=== PATIENT | male | born 1935 | race Caucasian/White ===

== ENCOUNTER 2020-09-10 09:40 | Emergency (ER) | payer OTHER ==
[2020-09-10 12:06] LABS: Absolute Lymphocytes (CBC) 1.3 K/uL (0.7-4.9); Basophils % 0.4 % (0-1.3); Hematocrit 37.2 % (39.6-49.0); Lymphocytes % 11.5 % (15.3-44.8); MPV 9.6 fL (7.6-11.3); RBC Red Blood Cell Count 4.68 M/uL (4.33-5.43)
[2020-09-10 12:09] LABS: Protime INR 1.22
[2020-09-10 12:15] LABS: ALT/SGPT 31 U/L (12-78); AST/SGOT 25 U/L (15-37); Albumin 3.9 g/dL (3.4-5.0); Alkaline Phosphatase 177 U/L (45-117); BUN Blood Urea Nitrogen 12 mg/dL (7-18); Bicarbonate 26 mmol/L (21-32); Bilirubin Direct 0.2 mg/dL (0-0.2); Bilirubin Total 0.6 mg/dL (0.2-1.0); Glucose Level 78 mg/dL (74-106); Magnesium 2.1 mg/dL (1.8-2.4); NT PRO-BNP 1852 pg/mL (<450); Potassium 4.6 mmol/L (3.5-5.1); Protein, Total 8.1 g/dL (6.4-8.2); Sodium Level 142 mmol/L (136-145); Troponin (Emerg Dept Use Only) < 0.02 ng/mL (0.0-0.045)
--- NOTE | 2020-09-10 12:58 | RAD REPORT ---
EXAM DESCRIPTION: RAD - Chest Single View - 09/10/2020 12:44 pm CLINICAL HISTORY: SOB, dyspnea on exertion, recent COVID test with results on known COMPARISON: Single-view chest March 2012 TECHNIQUE: AP portable chest image was obtained 09/10/2020 12:44 pm . FINDINGS: No focal mass or consolidation. Patient has a baseline prominence of the interstitial benito chava in each lung base that could potentially mask an early interstitial edema or infiltrate. Heart an d vasculature are normal. No measurable pleural effusion and no pneumothorax. No acute bony abnormali ty seen. No acute aortic findings suspected. IMPRESSION: No mass, consolidation or definitive airspace pneumonia. Baseline interstitial pattern is not significantly different from comparison but could mask early int erstitial edema or infiltrate.
--- NOTE | 2020-09-10 13:52 | RAD REPORT ---
EXAM DESCRIPTION: CT - Chest For Pe Angio - 09/10/2020 1:32 pm CLINICAL HISTORY: SOB , recent COVID vaccination COMPARISON: Chest Single View dated 09/10/2020 TECHNIQUE: Dynamically enhanced 3 mm thick images of the chest were obtained during administration o f approximately 150mL Isovue 370 IV contrast. Coronal and oblique MIP reconstruction images were gene rated and reviewed. Exam utilizes a protocol to evaluate the pulmonary arterial tree. All CT scans are performed using dose optimization technique as appropriate and may include automated exposure control or mA/KV adjustment according to patient size. FINDINGS: No pulmonary emboli are identified. The aorta as imaged shows no acute or suspicious finding. No pericardial thickening or effusion. Card iomegaly is present. No focal consolidation or mass. Interstitial markings are prominent, accentuated by respiratory motio n. Findings are more pronounced in each lung base. Small bilateral pleural effusions are present left greater than right. No mediastinal or hilar suspicious masses. No chest wall masses or abnormal axillary lymphadenopathy. IMPRESSION: No pulmonary emboli identified. Small bilateral pleural effusions are present larger on the left. Cardiomegaly and prominent interstitial pattern. Patient could have a mild failure or volume overload .A mild interstitial infiltrate could be masked by the baseline prominence.
[2020-09-10] MEDS ORDERED: FUROSEMIDE 40 MG/4 ML VIAL ONE (14:34)
--- NOTE | 2020-09-10 15:09 | ER ---
Nurse's Notes [facility] Name: Miles Chowdary Age: 84 yrs Sex: Male : 1935 Arrival Date: 09/10/2020 Time: 09:41 Bed 5 Private MD: Ge Cuevas T Diagnosis: Heart failure, unspecified Presentation: 09/10 10:03 Chief complaint: Patient states: "I went and got that first COVID shot last week and ss after that I just can't breath. I can't walk across the floor without getting out of breath." Denies fever/ cough. Coronavirus screen: Client denies travel out of the [place] in the last 14 days. Ebola Screen: Patient denies exposure to infectious person. Patient denies travel to an Ebola-affected area in the 21 days before illness onset. Initial Sepsis Screen: Does the patient meet any 2 criteria? No. Patient's initial sepsis screen is negative. Does the patient have a suspected source of infection? No. Patient's initial sepsis screen is negative. Risk Assessment: Do you want to hurt yourself or someone else? Patient reports no desire to harm self or others. Onset of symptoms was September 03, 2020. 10:03 Method Of Arrival: Ambulatory ss 10:03 Acuity: MILDRED 3 ss Historical: - Allergies: 10:06 No Known Allergies; ss - PMHx: 10:06 Hypertension; "Male breast CA"; ss - PSHx: 10:06 [place]; ss - Immunization history:: Adult Immunizations up to date. - Social history:: Smoking status: Patient denies any tobacco usage or history of. Screenin:35 Abuse screen: Denies threats or abuse. Denies injuries from another. Nutritional sv screening: No deficits noted. Tuberculosis screening: No symptoms or risk factors identified. Fall Risk None identified. Assessment: 11:35 General: Appears in no apparent distress. uncomfortable, well groomed, well developed, sv Behavior is calm, cooperative, appropriate for age. Pain: Denies pain. Neuro: Level of Consciousness is awake, alert, obeys commands, Oriented to person, place, time, situation, Moves all extremities. Full function Gait is steady, Speech is normal. Cardiovascular: Patient's skin is warm and dry. Cardiovascular: Rhythm is atrial fibrillation. Respiratory: Airway is patent Respiratory effort is even, unlabored, Respiratory pattern is regular, symmetrical. Respiratory: Reports shortness of breath on exertion. Derm: Skin is pink, warm \\T\\ dry. Musculoskeletal: Range of motion: intact in all extremities, Swelling present in right leg and left leg. 13:08 Reassessment: Patient appears in no apparent distress at this time. Patient and/or hb family updated on plan of care and expected duration. Pain level reassessed. Patient is alert, oriented x 3, equal unlabored respirations, skin warm/dry/pink. 14:00 Reassessment: Patient appears in no apparent distress at this time. Patient and/or hb family updated on plan of care and expected duration. Pain level reassessed. Patient is alert, oriented x 3, equal unlabored respirations, skin warm/dry/pink. 15:21 Reassessment: Patient appears in no apparent distress at this time. Patient and/or sv family updated on plan of care and expected duration. Pain level reassessed. Patient is alert, oriented x 3, equal unlabored respirations, skin warm/dry/pink. Vital Signs: 10:03 Pulse 78; Resp 16; Temp 97.9(TE); Pulse Ox 99% on R/A; Weight 90.72 kg; Height 5 ft. 8 ss in. (172.72 cm); Pain 0/10; 10:06 BP 176 / 121; ss 12:07 BP 174 / 100; Pulse 83 MON; Resp 18; Pulse Ox 95% on R/A; sv 13:00 BP 179 / 93; Pulse 94; Resp 21; Pulse Ox 97% ; hb 14:06 BP 179 / 108; Pulse 94; Resp 17; Pulse Ox 97% on R/A; hb 10:03 Body Mass Index 30.41 (90.72 kg, 172.72 cm) ss 12:07 A fib sv ED Course: 09:41 Patient arrived in ED. am2 09:42 Ge Cuevas MD is Private Physician. am2 10:05 Triage completed. ss 10:06 Arm band placed on right wrist. ss 11:02 Lauren Manriquez RN is Primary Nurse. sv 11:08 Ryan Guaman MD is Attending Physician. sohail 11:10 Kyler Barahona PA is PHCP. jmm 11:35 Patient has correct armband on for positive identification. Placed in gown. Bed in low sv position. Call light in reach. Side rails up X 1. campus monitor on. Pulse ox on. NIBP on. Door closed. Warm blanket given. Head of bed elevated. 11:37 Inserted saline lock: 20 gauge in right antecubital area, using aseptic technique. sv Blood collected. Flushed right antecubital with 5 ml normal saline. 12:44 XRAY Chest (1 view) In Process Unspecified. EDMS 13:32 CT Chest For PE Angio In Process Unspecified. EDMS 15:08 Jaime Matt MD is Referral Physician. jmm 15:21 No provider procedures requiring assistance completed. IV discontinued, intact, sv bleeding controlled, No redness/swelling at site. Pressure dressing applied. Administered Medications: 14:20 Drug: Lasix (furosemide) 40 mg Route: IVP; Site: right antecubital; hb 14:59 Follow up: Response: No adverse reaction sv Output: 15:00 Urine: 700ml (Voided); Total: 700ml. sv Outcome: 15:08 Discharge ordered by MD. jmm 15:21 Discharged to home ambulatory. sv 15:21 Condition: stable 15:21 Discharge instructions given to patient, Instructed on discharge instructions, follow up and referral plans. medication usage, Demonstrated understanding of instructions, follow-up care, medications, Prescriptions given X 1. 15:23 Patient left the ED. sv Signatures: Dispatcher [employer] EDNJ Lauren Manriquez RN RN sv Anderson, Corey, MD MD cha Mickail, Joel, PA PA jmm Smirch, Shelby, RN RN ss Baxter, Heather, RN RN hb Moreno, Amanda am2
--- NOTE | 2020-09-10 15:09 | EDPHYS ---
Physician Documentation [facility] Name: Miles Chowdary Age: 84 yrs Sex: Male : 1935 Arrival Date: 09/10/2020 Time: 09:41 Bed 5 Private MD: Ge Cuevas T ED Physician Ryan Guaman HPI: 09/10 11:08 This 84 yrs old Male presents to ER via Ambulatory with complaints of jmm Shortness Of Breath. 11:08 The patient has shortness of breath with light activity. Onset: The symptoms/episode jmm began/occurred gradually, 1 week(s) ago. The patient's shortness of breath is aggravated by exertion, light activity, is alleviated by nothing. Associated signs and symptoms: Pertinent positives: leg swelling, Pertinent negatives: chest pain, non-productive cough, productive cough, fever, hemoptysis, loss of consciousness, nausea, numbness in extremities, visual changes, vomiting. This is an 84 year old male with a history of htn that presents to the ED with complaints of shortness of breath on exertion. Patient states he recently was discontinued from furosemide about 1 month ago. . Historical: - Allergies: 10:06 No Known Allergies; ss - PMHx: 10:06 Hypertension; "Male breast CA"; ss - PSHx: 10:06 whipple; ss - Immunization history:: Adult Immunizations up to date. - Social history:: Smoking status: Patient denies any tobacco usage or history of. ROS: 11:08 Constitutional: Negative for fever, chills, and weight loss, Cardiovascular: Negative jmm for chest pain, palpitations, and edema. 11:08 Respiratory: Positive for shortness of breath. 11:08 MS/extremity: Positive for swelling. 11:08 All other systems are negative. Exam: 11:08 Constitutional: This is a well developed, well nourished patient who is awake, alert, jmm and in no acute distress. Head/Face: atraumatic. Eyes: EOMI, no conjunctival erythema appreciated ENT: Moist Mucus Membranes Neck: Trachea midline, Supple Chest/axilla: Normal chest wall appearance and motion. Cardiovascular: Regular rate and rhythm. No edema appreciated Respiratory: Normal respirations, no respiratory distress appreciated Abdomen/GI: Non distended, soft Back: Normal ROM Skin: General appearance color normal 11:08 Musculoskeletal/extremity: edema noted bilaterally. 11:08 Skin: Appearance: Color: normal in color. 11:08 Neuro: Orientation: is normal, Mentation: is normal, Memory: is normal. 11:08 Psych: Behavior/mood is pleasant, cooperative. Vital Signs: 10:03 Pulse 78; Resp 16; Temp 97.9(TE); Pulse Ox 99% on R/A; Weight 90.72 kg; Height 5 ft. 8 ss in. (172.72 cm); Pain 0/10; 10:06 BP 176 / 121; ss 12:07 BP 174 / 100; Pulse 83 MON; Resp 18; Pulse Ox 95% on R/A; sv 13:00 BP 179 / 93; Pulse 94; Resp 21; Pulse Ox 97% ; hb 14:06 BP 179 / 108; Pulse 94; Resp 17; Pulse Ox 97% on R/A; hb 10:03 Body Mass Index 30.41 (90.72 kg, 172.72 cm) ss 12:07 A fib sv MDM: 11:08 Patient medically screened. sohail 15:06 Data reviewed: vital signs, nurses notes. Counseling: I had a detailed discussion with juliet the patient and/or guardian regarding: the historical points, exam findings, and any diagnostic results supporting the discharge/admit diagnosis, lab results, radiology results, the need for outpatient follow up, to return to the emergency department if symptoms worsen or persist or if there are any questions or concerns that arise at home. ED course: Patient states feeling much better. SOB most likely due to overload. Otherwise normal pulse ox along with RR. Patient administered lasix IV and advised to follow up with Dr. Matt for medication management. patient is otherwise given strict return precautions. Patient understood and agrees with the plan of care. . 09/10 11:10 Order name: Basic Metabolic Panel; Complete Time: 12:16 [facility] 09/10 11:10 Order name: CBC with Diff; Complete Time: 12:14 [facility] 09/10 11:10 Order name: LFT's; Complete Time: 12:16 [facility] 09/10 11:10 Order name: Magnesium; Complete Time: 12:16 [facility] 09/10 11:10 Order name: NT PRO-BNP; Complete Time: 12:16 [facility] 09/10 11:10 Order name: PT-INR; Complete Time: 12:42 [facility] 09/10 11:10 Order name: Troponin (emerg Dept Use Only); Complete Time: 12:16 [facility] 09/10 11:10 Order name: XRAY Chest (1 view); Complete Time: 13:03 [facility] 09/10 11:10 Order name: EKG; Complete Time: 11:11 [facility] 09/10 11:10 Order name: Cardiac monitoring; Complete Time: 12:05 [facility] 09/10 13:13 Order name: CT Chest For PE Angio; Complete Time: 13:55 [facility] 09/10 14:04 Order name: SARS-COV-2 RT PCR; Complete Time: 14:05 [facility] 09/10 11:10 Order name: EKG - Nurse/Tech; Complete Time: 12:05 [facility] 09/10 11:10 Order name: IV Saline Lock; Complete Time: 12:05 [facility] 09/10 11:10 Order name: Labs collected and sent; Complete Time: 12:06 [facility] 09/10 11:10 Order name: O2 Per Protocol; Complete Time: 12:06 [facility] 09/10 11:10 Order name: O2 Sat Monitoring; Complete Time: 12:06 [facility] Administered Medications: 14:20 Drug: Lasix (furosemide) 40 mg Route: IVP; Site: right antecubital; hb 14:59 Follow up: Response: No adverse reaction sv Disposition: 09/11 07:16 Co-signature as Attending Physician, Ryan Guaman MD I agree with the assessment and sohail plan of care. Disposition: 09/10/20 15:08 Discharged to Home. Impression: Heart failure, unspecified. - Condition is Stable. - Discharge Instructions: Heart Failure. - Prescriptions for Lasix 40 mg Oral Tablet - take 1 tablet by ORAL route once daily for 30 days; 30 tablet. - Medication Reconciliation Form, Thank You Letter, Antibiotic Education, Prescription Opioid Use form. - Follow up: Jaime Matt MD; When: 2 - 3 days; Reason: Recheck today's complaints, Continuance of care, Re-evaluation by your physician. Signatures: Dispatcher [employer] Lauren Kumar RN RN sv Anderson, Corey, MD MD cha Mickail, Joel, PA PA jmm Smirch, Shelby, RN RN Zenaida Sales RN RN Corrections: (The following items were deleted from the chart) 09/10 13:21 12:19 CORONAVIRUS+MR.LAB.BRZ ordered. [facility] EDMS 15:23 15:08 09/10/2020 15:08 Discharged to Home. Impression: Heart failure, unspecified. sv Condition is Stable. Forms are Medication Reconciliation Form, Thank You Letter, Antibiotic Education, Prescription Opioid Use. Follow up: Jaime Matt; When: 2 - 3 days; Reason: Recheck today's complaints, Continuance of care, Re-evaluation by your physician. juliet
[2020-09-10 17:17] VITALS: TEMP 97.9
[2020-09-10 17:20] VITALS: O2SAT 97
[2020-09-10 17:21] VITALS: BP 179/108
--- NOTE | 2020-09-11 06:53 | EKG ---
Test Date: 2020-09-10 Test Time: 11:25:40 Lean Engineer: SV MEASUREMENT RESULTS: Intervals: Rate: 102 ND: QRSD: 92 QT: 328 QTc: 427 [place]: P: ND: QRS: 87 T: 41 INTERPRETIVE STATEMENTS: Atrial fibrillation with rapid ventricular response Abnormal ECG Compared to ECG 03/29/2012 14:23:11 Myocardial infarct finding no longer present Electronically Signed On 09-11-20 06:51:34 CDT by Jaime Matt
[2020-09-17 12:23] LABS: Urine Blood Negative (Negative); Urine Glucose Negative (Negative); Urine Protein Negative (Negative); Urine Specific Gravity 1.025 (1.005-1.030); Urine pH 6.5 (5.0-7.0)
== END 2020-09-10 15:23 | disposition home or self-care (01) ==
LOC: ER 09:40
DX: I50.9 Heart failure, unspecified (principal); Z20.822 Contact with and (suspected) exposure to COVID-19; I10 Essential (primary) hypertension
CPT/HCPCS: 85025; 80048; 36415; 83735; 85610; 80076; 84484; 83880; 71275; 71045; U0003; Q9967; J1940; 81003; 93005; 96374; 99284

== ENCOUNTER 2020-09-13 13:22 | Emergency (ER) | payer OTHER ==
[2020-09-13] MEDS ORDERED: HYDROCODONE/APAP 5/325 MG TAB ONE (14:19)
--- NOTE | 2020-09-13 14:22 | RAD REPORT ---
EXAM DESCRIPTION: RAD - Wrist Right 3 View - 09/13/2020 1:57 pm CLINICAL HISTORY: Right wrist pain status post injury FINDINGS: Comminuted, impacted distal radial fracture is moderately displaced. Avulsion fracture ulnar styloid. No dislocation
[2020-09-13] MEDS ORDERED: LIDOCAINE 1% MPF 5 ML VIAL ONE (14:33)
[2020-09-13] MEDS ORDERED: FENTANYL CITR 100 MCG/2 ML ONE (14:34)
[2020-09-13] MEDS ORDERED: ONDANSETRON 4 MG (ODT) TAB ONE (14:35)
--- NOTE | 2020-09-13 15:26 | RAD REPORT ---
EXAM DESCRIPTION: RAD - Wrist Right 2 View - 09/13/2020 3:19 pm CLINICAL HISTORY: Radial fracture FINDINGS: Splint immobilizes previously described fractures distal radius and ulna. Moderate displac ement of the radial fracture fragments present
--- NOTE | 2020-09-13 16:47 | ER ---
Nurse's Notes [facility] Name: Miles Chowdary Age: 84 yrs Sex: Male : 1935 Arrival Date: 09/13/2020 Time: 13:23 Bed 7 Private MD: Ge Cuevas T Diagnosis: Displaced fracture of right ulna styloid process-closed;Closed comminuted impacted distal radius fracture with moderate displacement Presentation: 09/13 13:33 Chief complaint: Patient states: "I fell and caught myself with my arm and I think I aa5 broke my right wrist". 13:33 Onset of symptoms was September 13, 2020. aa5 13:33 Acuity: MILDRED 3 aa5 13:33 Method Of Arrival: Ambulatory aa5 13:40 Coronavirus screen: At this time, the client does not indicate any symptoms associated rb3 with coronavirus-19. Ebola Screen: Patient denies travel to an Ebola-affected area in the 21 days before illness onset. Initial Sepsis Screen: Does the patient meet any 2 criteria? No. Patient's initial sepsis screen is negative. Does the patient have a suspected source of infection? No. Patient's initial sepsis screen is negative. Risk Assessment: Do you want to hurt yourself or someone else? Patient reports no desire to harm self or others. Triage Assessment: 13:40 Injury Description: Deformity sustained to right wrist. rb3 Historical: - Allergies: 13:40 No Known Allergies; rb3 - Home Meds: 13:40 Unable to obtain [Active]; rb3 - PMHx: 13:40 "Male breast CA"; Hypertension; pancreatic cancer; skin cancer; rb3 - PSHx: 13:40 whipple; rb3 - Immunization history:: Adult Immunizations up to date. - Social history:: Smoking status: Patient/guardian denies using. Screenin:40 Abuse screen: Denies threats or abuse. Nutritional screening: No deficits noted. rb3 Tuberculosis screening: No symptoms or risk factors identified. Fall Risk Fall in past 12 months (25 points). No secondary diagnosis (0 pts). No IV (0 pts). Ambulatory Aid- None/Bed Rest/Nurse Assist (0 pts). Gait- Normal/Bed Rest/Wheelchair (0 pts) Mental Status- Oriented to own ability (0 pts). Total Hanna Fall Scale indicates Low Risk Score (25-44 pts). Fall prevention measures have been instituted. Side Rails Up X 2 Placed close to Nursing Station 1:1 attendant Assigned to Pt. Frequent Obs/Assesments occuring As available Patient and Family Educated on Fall Prevention Program and strategies. Assessment: 13:40 General: Appears in no apparent distress. Behavior is calm, cooperative. Pain: rb3 Complains of pain in right wrist Pain currently is 8 out of 10 on a pain scale. Pain began 30 min ago. Neuro: Level of Consciousness is awake, alert, obeys commands, Oriented to person, place, time, situation. Cardiovascular: Patient's skin is warm and dry. Pulses are palpable in right wrist. Respiratory: Airway is patent Respiratory effort is even, unlabored, Respiratory pattern is regular, symmetrical. GI: No signs and/or symptoms were reported involving the gastrointestinal system. : No signs and/or symptoms were reported regarding the genitourinary system. Musculoskeletal: Bony deformity noted of right wrist Reports He stepped in a hole, fell, and tried to catch himself injuring his right wrist. 14:30 Reassessment: Patient appears in no apparent distress at this time. Patient and/or rb3 family updated on plan of care and expected duration. Pain level reassessed. Patient is alert, oriented x 3, equal unlabored respirations, skin warm/dry/pink. 15:12 Reassessment: X-ray at the bedside. rb3 15:30 Reassessment: Patient appears in no apparent distress at this time. Patient and/or rb3 family updated on plan of care and expected duration. Pain level reassessed. Patient is alert, oriented x 3, equal unlabored respirations, skin warm/dry/pink. 16:30 Reassessment: Patient appears in no apparent distress at this time. [place] at the rb3 bedside applying a splint. 17:15 Reassessment: Patient appears in no apparent distress at this time. Patient and/or rb3 family updated on plan of care and expected duration. Pain level reassessed. Patient is alert, oriented x 3, equal unlabored respirations, skin warm/dry/pink. Vital Signs: 13:59 BP 153 / 92; Pulse 76; Resp 17; Temp 97.6(O); Pulse Ox 100% ; Weight 90.26 kg; Height 5 mh5 ft. 10 in. (177.80 cm); Pain 8/10; 15:00 BP 155 / 89; Pulse 79; Resp 18; Pulse Ox 100% ; Pain 6/10; rb3 16:00 BP 149 / 83; Pulse 75; Resp 17; Pulse Ox 99% ; rb3 17:00 BP 151 / 80; Pulse 77; Resp 17; Pulse Ox 98% ; Pain 4/10; rb3 13:59 Body Mass Index 28.55 (90.26 kg, 177.80 cm) 5 ED Course: 13:23 Patient arrived in ED. am2 13:23 Ge Cuevas MD is Private Physician. am2 13:33 Arm band placed on Patient placed in an exam room, on a stretcher. aa5 13:35 Joe Duckworth NP is PHCP. pm1 13:[address] MD is Attending Physician. pm1 13:41 Marty Farrell, FARTUN is Primary Nurse. bp 13:46 Triage completed. aa5 13:57 Wrist Right 3 View XRAY In Process Unspecified. EDMS 13:58 ICE PACK. mh5 13:59 Patient has correct armband on for positive identification. Bed in low position. Call [facility] light in reach. Pillow given. Ice pack to injury. Pulse ox on. NIBP on. 14:02 Orthoglass splint: Sugar tong splint applied on right arm. Sling applied to right arm. mh5 14:59 MANIPULATING OF WRIST AND SPLINT SUGAR TONG. mh5 15:19 Wrist Right 2 View XRAY In Process Unspecified. EDMS 16:18 Wrist Right 2 View XRAY In Process Unspecified. EDMS 16:47 Stepan Heath MD is Referral Physician. pm1 17:22 Patient did not have IV access during this emergency room visit. rb3 Administered Medications: 14:03 Drug: [place] (HYDROcodone-acetaminophen) 5 mg-325 mg 1 tabs Route: PO; rb3 14:30 Follow up: Response: No adverse reaction rb3 14:24 Drug: fentaNYL (PF) 25 mcg Route: IM; Site: right deltoid; rb3 15:00 Follow up: Response: No adverse reaction; Pain is decreased rb3 14:24 Drug: Ondansetron (Zofran) 4 mg Route: PO; rb3 15:00 Follow up: Response: No adverse reaction rb3 14:40 Drug: Lidocaine (1 %) 5 ml Volume: 5 ml; Route: Infiltration; rb3 Outcome: 16:47 Discharge ordered by . pm1 17:22 Patient left the ED. rb3 17:22 Discharged to home via wheelchair, with family. rb3 17:22 Condition: stable 17:22 Discharge instructions given to patient, Instructed on discharge instructions, follow rb3 up and referral plans. medication usage, Demonstrated understanding of instructions, follow-up care, medications, Prescriptions given X 1. Signatures: Dispatcher [employer] EDTX Rossy Lakhani RN RN aa5 Joe Duckworth NP [facility] pm1 Norma Casarez 5 Monalisa Sharma am2 Marty Farrell RN RN bp Amy Davis RN RN rb3
--- NOTE | 2020-09-13 16:47 | EDPHYS ---
Physician Documentation [facility] Name: Miles Chowdary Age: 84 yrs Sex: Male : 1935 Arrival Date: 09/13/2020 Time: 13:23 Bed 7 Private MD: Ge Cuevas T ED Physician Stephon Lane HPI: 09/13 13:51 This 84 yrs old Male presents to ER via Ambulatory with complaints of Arm pm1 Injury, Fall Injury. 13:51 The patient or guardian complains of deformity, pain, that is acute. The complaints pm1 affect the right wrist. Context: resulted from a fall, while walking. Onset: The symptoms/episode began/occurred just prior to arrival. Treatment prior to arrival includes: no previous treatment. Modifying factors: The symptoms are alleviated by remaining still. 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 - Social history:: Smoking status: Patient/guardian denies using. ROS: 13:52 Constitutional: Negative for fever, chills, and weight loss, Neck: Negative for injury, pm1 pain, and swelling, Cardiovascular: Negative for chest pain, palpitations, and edema, Respiratory: Negative for shortness of breath, cough, wheezing, and pleuritic chest pain, Abdomen/GI: Negative for abdominal pain, nausea, vomiting, diarrhea, and constipation, Back: Negative for injury and pain, Skin: Negative for injury, rash, and discoloration. 13:52 Neuro: Negative for headache, weakness, numbness, tingling, and seizure. 13:52 MS/extremity: Positive for pain, of the right wrist, Negative for paresthesias, tingling. Exam: 13:52 Constitutional: This is a well developed, well nourished patient who is awake, alert, pm1 and in no acute distress. Head/Face: Normocephalic, atraumatic. Neck: Trachea midline, no thyromegaly or masses palpated, and no cervical lymphadenopathy. Supple, full range of motion without nuchal rigidity, or vertebral point tenderness. No Meningismus. Chest/axilla: Normal chest wall appearance and motion. Nontender with no deformity. No lesions are appreciated. 13:52 Back: No spinal tenderness. No costovertebral tenderness. Full range of motion. Skin: Warm, dry with normal turgor. Normal color with no rashes, no lesions, and no evidence of cellulitis. 13:52 Cardiovascular: Exam negative for acute changes, Rate: normal, Rhythm: regular, Pulses: no pulse deficits are appreciated. 13:52 Respiratory: Exam negative for acute changes, respiratory distress, shortness of breath. 13:52 Musculoskeletal/extremity: Extremities: grossly normal except: noted in the right wrist: distal radial deformity present, There is no evidence of abrasion, laceration, puncture. 13:52 Neuro: Orientation: is normal, Mentation: is normal, Motor: neurovascular status intact to right hand. Patient able to move all finger full range of motion. No numbness present, Sensation: is normal, no obvious gross deficits, numbness, is not appreciated, of the right hand. Vital Signs: 13:59 BP 153 / 92; Pulse 76; Resp 17; Temp 97.6(O); Pulse Ox 100% ; Weight 90.26 kg; Height 5 mh5 ft. 10 in. (177.80 cm); Pain 8/10; 15:00 BP 155 / 89; Pulse 79; Resp 18; Pulse Ox 100% ; Pain 6/10; rb3 16:00 BP 149 / 83; Pulse 75; Resp 17; Pulse Ox 99% ; rb3 17:00 BP 151 / 80; Pulse 77; Resp 17; Pulse Ox 98% ; Pain 4/10; rb3 13:59 Body Mass Index 28.55 (90.26 kg, 177.80 cm) mh5 Procedures: 14:52 Reduction: of the right wrist, using traction, Immobilized with OCL splint, Patient pm1 tolerated well. Reduction performed with Dr. Patton. 15:36 Reduction: of the right wrist, using traction, Immobilized with OCL splint, Patient pm1 tolerated well. Patient prior reduction with continued moderate displacement, so further reduction attempted again. Patient neurovascular status intact to right hand and fingers. 16:42 Splinting: Splint applied to right wrist using Orthoglass splint, applied by myself. pm1 nurse. Examined by me, post splint application: neurovascular intact, 2+ distal pulses palpable, brisk capillary refill noted, Patient tolerated cock up 45 degree angle on right wrist with orthoglass. MDM: 13:39 Patient medically screened. pm1 14:29 Data reviewed: vital signs. Data interpreted: Pulse oximetry: on room air is 100 %. pm1 Interpretation: normal. 16:43 Counseling: I had a detailed discussion with the patient and/or guardian regarding: the pm1 historical points, exam findings, and any diagnostic results supporting the discharge/admit diagnosis, radiology results, the need for outpatient follow up, for definitive care, a orthopedic surgeon, to return to the emergency department if symptoms worsen or persist or if there are any questions or concerns that arise at home. 19:36 ED course: Reviewed X-ray with Dr. Patton for second post reduction. Patient's right pm1 arm neurovascular status intact. Dr. Patton believes that this is the maximum amount we will be able to reduce this comminuted and displaced distal radius fracture. Patient will need follow up with orthopedics for definitive care. 09/13 13:42 Order name: Wrist Right 3 View XRAY; Complete Time: 14:25 pm1 09/13 14:51 Order name: Wrist Right 2 View XRAY; Complete Time: 15:35 dh4 09/13 15:36 Order name: Wrist Right 2 View XRAY; Complete Time: 19:29 pm1 09/13 13:42 Order name: Ice pack; Complete Time: 13:57 pm1 09/13 13:58 Order name: Splint - Sugar Tong - Forearm; Complete Time: 14:01 pm1 09/13 13:58 Order name: Sling; Complete Time: 14:02 pm1 Administered Medications: 14:03 Drug: [place] (HYDROcodone-acetaminophen) 5 mg-325 mg 1 tabs Route: PO; rb3 14:30 Follow up: Response: No adverse reaction rb3 14:24 Drug: fentaNYL (PF) 25 mcg Route: IM; Site: right deltoid; rb3 15:00 Follow up: Response: No adverse reaction; Pain is decreased rb3 14:24 Drug: Ondansetron (Zofran) 4 mg Route: PO; rb3 15:00 Follow up: Response: No adverse reaction rb3 14:40 Drug: Lidocaine (1 %) 5 ml Volume: 5 ml; Route: Infiltration; rb3 Disposition: 09/13/20 16:47 Discharged to Home. Impression: Displaced fracture of right ulna styloid process - closed, Closed comminuted impacted distal radius fracture with moderate displacement. - Condition is Stable. - Discharge Instructions: Wrist Fracture Treated With Immobilization, How to Use a Sling. - Prescriptions for Tramadol 50 mg Oral Tablet - take 1 tablet by ORAL route every 8 hours as needed; 12 tablet. - Medication Reconciliation Form, Thank You Letter, Antibiotic Education, Prescription Opioid Use form. - Follow up: Stepan Heath MD; When: 2 - 3 days; Reason: Recheck today's complaints, Continuance of care, Re-evaluation by your physician. - Problem is new. - Symptoms have improved. Addendum: 09/14/2020 18:43 Co-signature as Attending Physician, Stephon Lane MD. m a2 Signatures: Dispatcher [employer] EDMS Joe Duckworth, [employer] pm1 [address] MD MD ma2 Amy Davis, RN RN rb3 Corrections: (The following items were deleted from the chart) 09/13 17:22 16:47 09/13/2020 16:47 Discharged to Home. Impression: Displaced fracture of right ulna rb3 styloid process - closed; Closed comminuted impacted distal radius fracture with moderate displacement. Condition is Stable. Forms are Medication Reconciliation Form, Thank You Letter, Antibiotic Education, Prescription Opioid Use. Follow up: Dr. Stepan Heath; When: 2 - 3 days; Reason: Recheck today's complaints, Continuance of care, Re-evaluation by your physician. Problem is new. Symptoms have improved. pm1
--- NOTE | 2020-09-13 17:17 | RAD REPORT ---
EXAM DESCRIPTION: RAD - Wrist Right 2 View - 09/13/2020 4:18 pm CLINICAL HISTORY: Radial fracture FINDINGS: There is better alignment of the radial fracture fragments when compared to the prior exam . However, mild to moderate displacement of fracture fragments persist.
== END 2020-09-13 17:22 | disposition home or self-care (01) ==
LOC: ER 13:22
PROC: 0PSHXZZ Reposition Right Radius, External Approach (ICD-10-PCS; principal; 2020-09-13)
PROC: 0PSKXZZ Reposition Right Ulna, External Approach (ICD-10-PCS; 2020-09-13)
DX: S52.501A Unspecified fracture of the lower end of right radius, initial encounter for closed fracture (principal); S52.611A Displaced fracture of right ulna styloid process, initial encounter for closed fracture; W19.XXXA Unspecified fall, initial encounter; Z85.3 Personal history of malignant neoplasm of breast; Z85.07 Personal history of malignant neoplasm of pancreas; Z85.828 Personal history of other malignant neoplasm of skin; I10 Essential (primary) hypertension
CPT/HCPCS: 73110; 73100 ×2; 25605; J3010; 96372; 99284

== ENCOUNTER 2021-08-19 12:29 | Observation (INO) | payer OTHER ==
--- OUTSIDE RECORDS SUMMARY | 2021-08-19 12:34 | XMS REPORT | Continuity of Care Document ---
:1935 Author Organization [facility] t Address [address] [place] [address] Care Team Providers Name Role Phone Demetri Rust MD Attending Clinician Demetri RUST Attending Clinician Unavailable Doctor Unassigned, Name Attending Clinician Unavailable [place], Lab Main Attending Clinician Unavailable Krystal GARCIA S Attending Clinician Tracy RICE Attending Clinician Unavailable Payers Payer Name Policy Type Policy Number Effective Date Expiration Date S azeem [employer] MEDICARE ADV [id number] 2020 00:00:00 Problems Condition Condition Condition Status Onset Resolution Last Treating Co mments Source Name Details Category Date Date Treatment Clinician Date No known No known Disease Unive rs active active ity of problems problems [facility] Allergies, Adverse Reactions, Alerts Allergy Allergy Status Severity Reaction(s) Onset Inactive Treating Comm ents Source Name Type Date Date Clinician NO KNOWN Drug Active Univers ALLERGIE Class ity of S [facility] Social History Social Habit Start Date Stop Date Quantity Comments Source Exposure to Not sure [facility] SARS-CoV-2 [facility] (event) [place] Tobacco use and 2020-10-27 2020-10-27 Never used Universit y of exposure 00:00:00 00:00:00 [facility] Alcohol intake 2020-10-27 2020-10-27 Lifetime University of 00:00:00 00:00:00 non-drinker [facility] (finding) [place] Sex Ass[birth year] At [birth year] Universit y of 00:00:00 00:00:00 [facility] Smoking Status Start Date Stop Date Source Never smoker [facility] Medications Ordered Filled Start Stop Current Ordering Indication Dosage Frequency Signature Comments Components Source Medication Medication Date Date Medication? Clinician (SIG) Name Name traMADoL 50 Yes TAKE ONE [facility] [place] mg tablet -03 (1) ity of 00:00: TABLET(S) [place] 00 BY MOUTH Medical EVERY Branch EIGHT HOURS NEEDED. traMADoL 50 Yes TAKE ONE [place] mg tablet 4-03 (1) ity of 00:00: TABLET(S) [place] 00 BY MOUTH Medical EVERY Branch EIGHT HOURS NEEDED. traMADoL 50 Yes TAKE ONE [place] mg tablet 4-03 (1) ity of 00:00: TABLET(S) [place] 00 BY MOUTH Medical EVERY Branch EIGHT HOURS NEEDED. traMADoL 50 Yes TAKE ONE [place] mg tablet 4-03 (1) ity of 00:00: TABLET(S) [place] 00 BY MOUTH Medical EVERY Branch EIGHT HOURS NEEDED. traMADoL 50 Yes TAKE ONE [place] mg tablet 4-03 (1) ity of 00:00: TABLET(S) [place] 00 BY MOUTH Medical EVERY Branch EIGHT HOURS NEEDED. traMADoL 50 Yes TAKE ONE [place] mg tablet 4-03 (1) ity of 00:00: TABLET(S) [place] 00 BY MOUTH Medical EVERY Branch EIGHT HOURS NEEDED. traMADoL 50 Yes TAKE ONE [place] mg tablet 4-03 (1) ity of 00:00: TABLET(S) [place] 00 BY MOUTH Medical EVERY Branch EIGHT HOURS NEEDED. traMADoL 50 Yes TAKE ONE [place] mg tablet 4-03 (1) ity of 00:00: TABLET(S) [place] 00 BY MOUTH Medical EVERY Branch EIGHT HOURS NEEDED. traMADoL 50 Yes TAKE ONE [place] mg tablet 4-03 (1) ity of 00:00: TABLET(S) [place] 00 BY MOUTH Medical EVERY Branch EIGHT HOURS NEEDED. traMADoL 50 Yes TAKE ONE [place] mg tablet 4-03 (1) ity of 00:00: TABLET(S) [place] 00 BY MOUTH Medical EVERY Branch EIGHT HOURS NEEDED. traMADoL 50 Yes TAKE ONE [place] mg tablet 4-03 (1) ity of 00:00: TABLET(S) [place] 00 BY MOUTH Medical EVERY Branch EIGHT HOURS NEEDED. traMADoL 50 Yes TAKE ONE [place] mg tablet 4-03 (1) ity of 00:00: TABLET(S) [place] 00 BY MOUTH Medical EVERY Branch EIGHT HOURS NEEDED. traMADoL 50 2020-0 Yes TAKE ONE [place] mg tablet 4-03 (1) ity of 00:00: TABLET(S) [place] 00 BY MOUTH Medical EVERY Branch EIGHT HOURS NEEDED. traMADoL 50 2020-0 Yes TAKE ONE [place] mg tablet 4-03 (1) ity of 00:00: TABLET(S) [place] 00 BY MOUTH Medical EVERY Branch EIGHT HOURS NEEDED. traMADoL 50 2020-0 Yes TAKE ONE [place] mg tablet 4-03 (1) ity of 00:00: TABLET(S) [place] 00 BY MOUTH Medical EVERY Branch EIGHT HOURS NEEDED. traMADoL 50 2020-0 Yes TAKE ONE [facility] [place] mg tablet 4-03 (1) ity of 00:00: TABLET(S) [place] 00 BY MOUTH Medical EVERY Branch EIGHT HOURS NEEDED. furosemide 2020-0 Yes 40mg Take 40 mg U nivers 40 mg 3-31 by mouth ity of tablet 00:00: daily. [address] furosemide 2021-0 Yes 40mg Take 40 mg U nivers 40 mg 3-31 by mouth ity of tablet 00:00: daily. [address] furosemide 2021-0 Yes 40mg Take 40 mg U nivers 40 mg 3-31 by mouth ity of tablet 00:00: daily. [place] [facility] furosemide 2021-0 Yes 40mg Take 40 mg U nivers 40 mg 3-31 by mouth ity of tablet 00:00: daily. [address] furosemide 2021-0 Yes 40mg Take 40 mg U nivers 40 mg 3-31 by mouth ity of tablet 00:00: daily. [place] [facility] furosemide 2021-0 Yes 40mg Take 40 mg U nivers 40 mg 3-31 by mouth ity of tablet 00:00: daily. [address] furosemide 2021-0 Yes 40mg Take 40 mg U nivers 40 mg 3-31 by mouth ity of tablet 00:00: daily. [address] furosemide 2021-0 Yes 40mg Take 40 mg U nivers 40 mg 3-31 by mouth ity of tablet 00:00: daily. [address] furosemide 2021-0 Yes 40mg Take 40 mg U nivers 40 mg 3-31 by mouth ity of tablet 00:00: daily. [address] furosemide 2021-0 Yes 40mg Take 40 mg U nivers 40 mg 3-31 by mouth ity of tablet 00:00: daily. [place] [facility] furosemide 0 Yes 40mg Take 40 mg U nivers 40 mg 3-31 by mouth ity of tablet 00:00: daily. [place] [facility] furosemide 0 Yes 40mg Take 40 mg U nivers 40 mg 3-31 by mouth ity of tablet 00:00: daily. [place] [facility] furosemide 0 Yes 40mg Take 40 mg U nivers 40 mg 3-31 by mouth ity of tablet 00:00: daily. [address] furosemide Yes 40mg Take 40 mg U nivers 40 mg 3-31 by mouth ity of tablet 00:00: daily. [address] furosemide Yes 40mg Take 40 mg U nivers 40 mg 3-31 by mouth ity of tablet 00:00: daily. [address] furosemide Yes 40mg Take 40 mg U nivers 40 mg 3-31 by mouth ity of tablet 00:00: daily. [address] XARELTO 20 Yes TAKE ONE Uni vers mg tablet 3-16 (1) ity of 00:00: TABLET(S) [place] 00 BY MOUTH Medical ONCE A DAY Branch WITH EVENING MEAL. XARELTO 20 Yes TAKE ONE Uni vers mg tablet 3-16 (1) ity of 00:00: TABLET(S) [place] 00 BY MOUTH Medical ONCE A DAY Branch WITH EVENING MEAL. XARELTO 20 Yes TAKE ONE Uni vers mg tablet 3-16 (1) ity of 00:00: TABLET(S) [place] 00 BY MOUTH Medical ONCE A DAY Branch WITH EVENING MEAL. XARELTO 20 Yes TAKE ONE Uni vers mg tablet 3-16 (1) ity of 00:00: TABLET(S) [place] 00 BY MOUTH Medical ONCE A DAY Branch WITH EVENING MEAL. XARELTO 20 Yes TAKE ONE Uni vers mg tablet 3-16 (1) ity of 00:00: TABLET(S) [place] 00 BY MOUTH Medical ONCE A DAY Branch WITH EVENING MEAL. XARELTO 20 Yes TAKE ONE Uni vers mg tablet 3-16 (1) ity of 00:00: TABLET(S) [place] 00 BY MOUTH Medical ONCE A DAY Branch WITH EVENING MEAL. XARELTO 20 Yes TAKE ONE Uni vers mg tablet 3-16 (1) ity of 00:00: TABLET(S) [place] 00 BY MOUTH Medical ONCE A DAY Branch WITH EVENING MEAL. XARELTO 20 Yes TAKE ONE Uni vers mg tablet 3-16 (1) ity of 00:00: TABLET(S) [place] 00 BY MOUTH Medical ONCE A DAY Branch WITH EVENING MEAL. XARELTO 20 Yes TAKE ONE Uni vers mg tablet 3-16 (1) ity of 00:00: TABLET(S) [place] 00 BY MOUTH Medical ONCE A DAY Branch WITH EVENING MEAL. XARELTO 20 Yes TAKE ONE Uni vers mg tablet 3-16 (1) ity of 00:00: TABLET(S) [place] 00 BY MOUTH Medical ONCE A DAY Branch WITH EVENING MEAL. XARELTO 20 Yes TAKE ONE Uni vers mg tablet 3-16 (1) ity of 00:00: TABLET(S) [place] 00 BY MOUTH Medical ONCE A DAY Branch WITH EVENING MEAL. XARELTO 20 Yes TAKE ONE Uni vers mg tablet 3-16 (1) ity of 00:00: TABLET(S) [place] 00 BY MOUTH Medical ONCE A DAY Branch WITH EVENING MEAL. XARELTO 20 Yes TAKE ONE Uni vers mg tablet 3-16 (1) ity of 00:00: TABLET(S) [place] 00 BY MOUTH Medical ONCE A DAY Branch WITH EVENING MEAL. XARELTO 20 Yes TAKE ONE Uni vers mg tablet 3-16 (1) ity of 00:00: TABLET(S) [place] 00 BY MOUTH Medical ONCE A DAY Branch WITH EVENING MEAL. XARELTO 20 Yes TAKE ONE Uni vers mg tablet 3-16 (1) ity of 00:00: TABLET(S) [place] 00 BY MOUTH Medical ONCE A DAY Branch WITH EVENING MEAL. XARELTO 20 Yes TAKE ONE Uni vers mg tablet 3-16 (1) ity of 00:00: TABLET(S) [place] 00 BY MOUTH Medical ONCE A DAY Branch WITH EVENING MEAL. TRESIBA Yes INJECT Univers FLEXTOUCH 2-25 THIRTY ity of U-200 200 00:00: (30) UNITS [place] unit/mL (3 00 UNDER THE Medi derek mL) InPn SKIN ONCE Branch DAILY IN THE EVENING. metFORMIN 2021-0 Yes 1000mg Take 1,000 Univers 1,000 mg 2-25 mg by ity of tablet 00:00: mouth 2 (two) Medical times Branch daily. TRESIBA 2020-0 Yes INJECT Univers FLEXTOUCH 2-25 THIRTY ity of U-200 200 00:00: (30) UNITS [place] unit/mL (3 00 UNDER THE Medi derek mL) InPn SKIN ONCE Branch DAILY IN THE EVENING. metFORMIN 2021-0 Yes 1000mg Take 1,000 Univers 1,000 mg 2-25 mg by ity of tablet 00:00: mouth 2 (two) Medical times Branch daily. TRESIBA 2020-0 Yes INJECT Univers FLEXTOUCH 2-25 THIRTY ity of U-200 200 00:00: (30) UNITS [place] unit/mL (3 00 UNDER THE Medi derek mL) InPn SKIN ONCE Branch DAILY IN THE EVENING. metFORMIN 2021-0 Yes 1000mg Take 1,000 Univers 1,000 mg 2-25 mg by ity of tablet 00:00: mouth 2 (two) Medical times Branch daily. TRESIBA 2020-0 Yes INJECT Univers FLEXTOUCH 2-25 THIRTY ity of U-200 200 00:00: (30) UNITS [place] unit/mL (3 00 UNDER THE Medi derek mL) InPn SKIN ONCE Branch DAILY IN THE EVENING. metFORMIN 2021-0 Yes 1000mg Take 1,000 Univers 1,000 mg 2-25 mg by ity of tablet 00:00: mouth 2 (two) Medical times Branch daily. TRESIBA 2020-0 Yes INJECT Univers FLEXTOUCH 2-25 THIRTY ity of U-200 200 00:00: (30) UNITS [place] unit/mL (3 00 UNDER THE Medi derek mL) InPn SKIN ONCE Branch DAILY IN THE EVENING. metFORMIN 2021-0 Yes 1000mg Take 1,000 Univers 1,000 mg 2-25 mg by ity of tablet 00:00: mouth 2 (two) Medical times Branch daily. TRESIBA 2021-0 Yes INJECT Univers FLEXTOUCH 2-25 THIRTY ity of U-200 200 00:00: (30) UNITS [place] unit/mL (3 00 UNDER THE Medi derek mL) InPn SKIN ONCE Branch DAILY IN THE EVENING. metFORMIN 2021-0 Yes 1000mg Take 1,000 Univers 1,000 mg 2-25 mg by ity of tablet 00:00: mouth 2 (two) Medical times Branch daily. TRESIBA 202-0 Yes INJECT Univers FLEXTOUCH 2-25 THIRTY ity of U-200 200 00:00: (30) UNITS [place] unit/mL (3 00 UNDER THE Medi derek mL) InPn SKIN ONCE Branch DAILY IN THE EVENING. metFORMIN 2021-0 Yes 1000mg Take 1,000 Univers 1,000 mg 2-25 mg by ity of tablet 00:00: mouth 2 (two) Medical times Branch daily. TRESIBA 2020-0 Yes INJECT Univers FLEXTOUCH 2-25 THIRTY ity of U-200 200 00:00: (30) UNITS [place] unit/mL (3 00 UNDER THE Medi derek mL) InPn SKIN ONCE Branch DAILY IN THE EVENING. metFORMIN 2021-0 Yes 1000mg Take 1,000 Univers 1,000 mg 2-25 mg by ity of tablet 00:00: mouth 2 (two) Medical times Branch daily. TRESIBA 2020-0 Yes INJECT Univers FLEXTOUCH 2-25 THIRTY ity of U-200 200 00:00: (30) UNITS [place] unit/mL (3 00 UNDER THE Medi derek mL) InPn SKIN ONCE Branch DAILY IN THE EVENING. metFORMIN 2021-0 Yes 1000mg Take 1,000 Univers 1,000 mg 2-25 mg by ity of tablet 00:00: mouth 2 (two) Medical times Branch daily. TRESIBA 2020-0 Yes INJECT Univers FLEXTOUCH 2-25 THIRTY ity of U-200 200 00:00: (30) UNITS [place] unit/mL (3 00 UNDER THE Medi derek mL) InPn SKIN ONCE Branch DAILY IN THE EVENING. metFORMIN 2021-0 Yes 1000mg Take 1,000 Univers 1,000 mg 2-25 mg by ity of tablet 00:00: mouth 2 (two) Medical times Branch daily. TRESIBA 202-0 Yes INJECT Univers FLEXTOUCH 2-25 THIRTY ity of U-200 200 00:00: (30) UNITS [place] unit/mL (3 00 UNDER THE Medi derek mL) InPn SKIN ONCE Branch DAILY IN THE EVENING. metFORMIN 2021-0 Yes 1000mg Take 1,000 Univers 1,000 mg 2-25 mg by ity of tablet 00:00: mouth 2 (two) Medical times Branch daily. TRESIBA 202-0 Yes INJECT Univers FLEXTOUCH 2-25 THIRTY ity of U-200 200 00:00: (30) UNITS [place] unit/mL (3 00 UNDER THE Medi derek mL) InPn SKIN ONCE Branch DAILY IN THE EVENING. metFORMIN 2021-0 Yes 1000mg Take 1,000 Univers 1,000 mg 2-25 mg by ity of tablet 00:00: mouth 2 (two) Medical times Branch daily. TRESIBA 2020-0 Yes INJECT Univers FLEXTOUCH 2-25 THIRTY ity of U-200 200 00:00: (30) UNITS [place] unit/mL (3 00 UNDER THE Medi derek mL) InPn SKIN ONCE Branch DAILY IN THE EVENING. metFORMIN 2021-0 Yes 1000mg Take 1,000 Univers 1,000 mg 2-25 mg by ity of tablet 00:00: mouth (two) Medical times Branch daily. TRESIBA 2020-0 Yes INJECT Univers FLEXTOUCH 2-25 THIRTY ity of U-200 200 00:00: (30) UNITS [place] unit/mL (3 00 UNDER THE Medi derek mL) InPn SKIN ONCE Branch DAILY IN THE EVENING. metFORMIN 2021-0 Yes 1000mg Take 1,000 Univers 1,000 mg 2-25 mg by ity of tablet 00:00: mouth 2 (two) Medical times Branch daily. TRESIBA 2020-0 Yes INJECT Univers FLEXTOUCH 2-25 THIRTY ity of U-200 200 00:00: (30) UNITS [place] unit/mL (3 00 UNDER THE Medi derek mL) InPn SKIN ONCE Branch DAILY IN THE EVENING. metFORMIN 2021-0 Yes 1000mg Take 1,000 Univers 1,000 mg 2-25 mg by ity of tablet 00:00: mouth 2 (two) Medical times Branch daily. TRESIBA 2021-0 Yes INJECT Univers FLEXTOUCH 2-25 THIRTY ity of U-200 200 00:00: (30) UNITS [place] unit/mL (3 00 UNDER THE Medi derek mL) InPn SKIN ONCE Branch DAILY IN THE EVENING. metFORMIN 2021-0 Yes 1000mg Take 1,000 Univers 1,000 mg 2-25 mg by ity of tablet 00:00: mouth 2 [place] 00 (two) Medical times Branch daily. glimepiride 2021-0 Yes 4mg Take 4 mg U nivers 4 mg tablet 2-24 by mouth 2 it y of 00:00: (two) [place] 00 times Medical daily. Branch sotaloL 80 2021-0 Yes 80mg Take 80 mg U nivers mg tablet 2-24 by mouth 3 ity of 00:00: (three) [place] 00 times Medical daily. Branch glimepiride 2021-0 Yes 4mg Take 4 mg U nivers 4 mg tablet 2-24 by mouth 2 it y of 00:00: (two) [place] 00 times Medical daily. Branch sotaloL 80 2021-0 Yes 80mg Take 80 mg U nivers mg tablet 2-24 by mouth 3 ity of 00:00: (three) [place] 00 times Medical daily. Branch glimepiride 2021-0 Yes 4mg Take 4 mg U nivers 4 mg tablet 2-24 by mouth 2 it y of 00:00: (two) [place] 00 times Medical daily. Branch sotaloL 80 2021-0 Yes 80mg Take 80 mg U nivers mg tablet 2-24 by mouth 3 ity of 00:00: (three) [place] 00 times Medical daily. Branch glimepiride 2021-0 Yes 4mg Take 4 mg U nivers 4 mg tablet 2-24 by mouth 2 it y of 00:00: (two) [place] 00 times Medical daily. Branch sotaloL 80 2021-0 Yes 80mg Take 80 mg U nivers mg tablet 2-24 by mouth 3 ity of 00:00: (three) [place] 00 times Medical daily. Branch glimepiride 2021-0 Yes 4mg Take 4 mg U nivers 4 mg tablet 2-24 by mouth 2 it y of 00:00: (two) [place] 00 times Medical daily. Branch sotaloL 80 2021-0 Yes 80mg Take 80 mg U nivers mg tablet 2-24 by mouth 3 ity of 00:00: (three) [place] 00 times Medical daily. Branch glimepiride 2021-0 Yes 4mg Take 4 mg U nivers 4 mg tablet 2-24 by mouth 2 it y of 00:00: (two) [place] 00 times Medical daily. Branch sotaloL 80 2021-0 Yes 80mg Take 80 mg U nivers mg tablet 2-24 by mouth 3 ity of 00:00: (three) [place] 00 times Medical daily. Branch glimepiride 2021-0 Yes 4mg Take 4 mg U nivers 4 mg tablet 2-24 by mouth 2 it y of 00:00: (two) [place] 00 times Medical daily. Branch sotaloL 80 2021-0 Yes 80mg Take 80 mg U nivers mg tablet 2-24 by mouth 3 ity of 00:00: (three) [place] 00 times Medical daily. Branch glimepiride 2021-0 Yes 4mg Take 4 mg U nivers 4 mg tablet 2-24 by mouth 2 it y of 00:00: (two) [place] 00 times Medical daily. Branch sotaloL 80 2021-0 Yes 80mg Take 80 mg U nivers mg tablet 2-24 by mouth 3 ity of 00:00: (three) [place] 00 times Medical daily. Branch glimepiride 2021-0 Yes 4mg Take 4 mg U nivers 4 mg tablet 2-24 by mouth 2 it y of 00:00: (two) [place] 00 times Medical daily. Branch sotaloL 80 2021-0 Yes 80mg Take 80 mg U nivers mg tablet 2-24 by mouth 3 ity of 00:00: (three) [place] 00 times Medical daily. Branch glimepiride 2021-0 Yes 4mg Take 4 mg U nivers 4 mg tablet 2-24 by mouth 2 it y of 00:00: (two) [place] 00 times Medical daily. Branch sotaloL 80 2021-0 Yes 80mg Take 80 mg U nivers mg tablet 2-24 by mouth 3 ity of 00:00: (three) [place] 00 times Medical daily. Branch glimepiride 2021-0 Yes 4mg Take 4 mg U nivers 4 mg tablet 2-24 by mouth 2 it y of 00:00: (two) [place] 00 times Medical daily. Branch sotaloL 80 2021-0 Yes 80mg Take 80 mg U nivers mg tablet 2-24 by mouth 3 ity of 00:00: (three) [place] 00 times Medical daily. Branch glimepiride 2021-0 Yes 4mg Take 4 mg U nivers 4 mg tablet 2-24 by mouth 2 it y of 00:00: (two) [place] 00 times Medical daily. Branch sotaloL 80 2021-0 Yes 80mg Take 80 mg U nivers mg tablet 2-24 by mouth 3 ity of 00:00: (three) [place] 00 times Medical daily. Branch glimepiride 2021-0 Yes 4mg Take 4 mg U nivers 4 mg tablet 2-24 by mouth 2 it y of 00:00: (two) [place] 00 times Medical daily. Branch sotaloL 80 2021-0 Yes 80mg Take 80 mg U nivers mg tablet 2-24 by mouth 3 ity of 00:00: (three) [place] 00 times Medical daily. Branch glimepiride 2021-0 Yes 4mg Take 4 mg U nivers 4 mg tablet 2-24 by mouth 2 it y of 00:00: (two) [place] 00 times Medical daily. Branch sotaloL 80 2021-0 Yes 80mg Take 80 mg U nivers mg tablet 2-24 by mouth 3 ity of 00:00: (three) [place] 00 times Medical daily. Branch glimepiride 2021-0 Yes 4mg Take 4 mg U nivers 4 mg tablet 2-24 by mouth 2 it y of 00:00: (two) [place] 00 times Medical daily. Branch sotaloL 80 2021-0 Yes 80mg Take 80 mg U nivers mg tablet 2-24 by mouth 3 ity of 00:00: (three) [place] 00 times Medical daily. Branch glimepiride 2021-0 Yes 4mg Take 4 mg U nivers 4 mg tablet 2-24 by mouth 2 it y of 00:00: (two) [place] 00 times Medical daily. Branch sotaloL 80 2021-0 Yes 80mg Take 80 mg U nivers mg tablet 2-24 by mouth 3 ity of 00:00: (three) [place] 00 times Medical daily. Branch lisinopriL 2021-0 Yes 20mg Take 20 mg U nivers 20 mg 2-22 by mouth ity of tablet 00:00: every [place] 00 morning. Medical Branch lisinopriL 2021-0 Yes 20mg Take 20 mg U nivers 20 mg 2-22 by mouth ity of tablet 00:00: every [place] 00 morning. Medical Branch lisinopriL 2021-0 Yes 20mg Take 20 mg U nivers 20 mg 2-22 by mouth ity of tablet 00:00: every [place] morning. Medical Branch lisinopriL 2021-0 Yes 20mg Take 20 mg U nivers 20 mg 2-22 by mouth ity of tablet 00:00: every [place] morning. Medical Branch lisinopriL 2021-0 Yes 20mg Take 20 mg U nivers 20 mg 2-22 by mouth ity of tablet 00:00: every [place] morning. Medical Branch lisinopriL 2021-0 Yes 20mg Take 20 mg U nivers 20 mg 2-22 by mouth ity of tablet 00:00: every [place] morning. Medical Branch lisinopriL 2021-0 Yes 20mg Take 20 mg U nivers 20 mg 2-22 by mouth ity of tablet 00:00: every [place] [id number] morning. Medical Branch lisinopriL 2021-0 Yes 20mg Take 20 mg U nivers 20 mg 2-22 by mouth ity of tablet 00:00: every [place] morning. Medical Branch lisinopriL 2021-0 Yes 20mg Take 20 mg U nivers 20 mg 2-22 by mouth ity of tablet 00:00: every [place] morning. Medical Branch lisinopriL 2021-0 Yes 20mg Take 20 mg U nivers 20 mg 2-22 by mouth ity of tablet 00:00: every [place] morning. Medical Branch lisinopriL 2021-0 Yes 20mg Take 20 mg U nivers 20 mg 2-22 by mouth ity of tablet 00:00: every [place] morning. Medical Branch lisinopriL 2021-0 Yes 20mg Take 20 mg U nivers 20 mg 2-22 by mouth ity of tablet 00:00: every [place] morning. Medical Branch lisinopriL 2021-0 Yes 20mg Take 20 mg U nivers 20 mg 2-22 by mouth ity of tablet 00:00: every [place] morning. Medical Branch lisinopriL 2021-0 Yes 20mg Take 20 mg U nivers 20 mg 2-22 by mouth ity of tablet 00:00: every [place] [id number] morning. Medical Branch lisinopriL 2021-0 Yes 20mg Take 20 mg U nivers 20 mg 2-22 by mouth ity of tablet 00:00: every [place] 00 morning. Medical Branch lisinopriL Yes 20mg Take 20 mg U nivers 20 mg 2-22 by mouth ity of tablet 00:00: every 00 morning. Medical Branch [facility] Yes TAKE ONE Unive rs M10 10 mEq 1-13 (1) ity of tablet 00:00: TABLET(S) [place] 00 BY MOUTH Medical ONCE A DAY Branch WITH FOOD. ONETOUCH Yes USE TO Univers ULTRA BLUE 1-13 TEST BLOOD ity of TEST STRIP 00:00: GLUCOSE [place] 00 ONCE A Medical DAY. [facility] Yes TAKE ONE Unive rs M10 10 mEq 1-13 (1) ity of tablet 00:00: TABLET(S) [place] 00 BY MOUTH Medical ONCE A DAY Branch WITH FOOD. ONETOUCH Yes USE TO Univers ULTRA BLUE 1-13 TEST BLOOD ity of TEST STRIP 00:00: GLUCOSE [place] 00 ONCE A Medical DAY. [facility] Yes TAKE ONE Unive rs M10 10 mEq 1-13 (1) ity of tablet 00:00: TABLET(S) [place] 00 BY MOUTH Medical ONCE A DAY Branch WITH FOOD. ONETOUCH Yes USE TO Univers ULTRA BLUE 1-13 TEST BLOOD ity of TEST STRIP 00:00: GLUCOSE [place] 00 ONCE A Medical DAY. [facility] Yes TAKE ONE Unive rs M10 10 mEq 1-13 (1) ity of tablet 00:00: TABLET(S) [place] 00 BY MOUTH Medical ONCE A DAY [place] WITH FOOD. ONETOUCH Yes USE TO Univers ULTRA BLUE 1-13 TEST BLOOD ity of TEST STRIP 00:00: GLUCOSE [place] 00 ONCE A Medical DAY. [facility] Yes TAKE ONE Unive rs M10 10 mEq 1-13 (1) ity of tablet 00:00: TABLET(S) [place] 00 BY MOUTH Medical ONCE A DAY [place] WITH FOOD. ONETOUCH Yes USE TO Univers ULTRA BLUE 1-13 TEST BLOOD ity of TEST STRIP 00:00: GLUCOSE [place] strip 00 ONCE A Medical DAY. [facility] Yes TAKE ONE Unive rs M10 10 mEq 1-13 (1) ity of tablet 00:00: TABLET(S) [place] 00 BY MOUTH Medical ONCE A DAY Branch WITH FOOD. ONETOUCH Yes USE TO Univers ULTRA BLUE 1-13 TEST BLOOD ity of TEST STRIP 00:00: GLUCOSE [place] 00 ONCE A Medical DAY. [facility] Yes TAKE ONE Unive rs M10 10 mEq 1-13 (1) ity of tablet 00:00: TABLET(S) [place] 00 BY MOUTH Medical ONCE A DAY Branch WITH FOOD. ONETOUCH Yes USE TO Univers ULTRA BLUE 1-13 TEST BLOOD ity of TEST STRIP 00:00: GLUCOSE [place] strip 00 ONCE A Medical DAY. [facility] Yes TAKE ONE Unive rs M10 10 mEq 1-13 (1) ity of tablet 00:00: TABLET(S) [place] 00 BY MOUTH Medical ONCE A DAY Branch WITH FOOD. ONETOUCH Yes USE TO Univers ULTRA BLUE 1-13 TEST BLOOD ity of TEST STRIP 00:00: GLUCOSE [place] strip 00 ONCE A Medical DAY. [facility] Yes TAKE ONE Unive rs M10 10 mEq 1-13 (1) ity of tablet 00:00: TABLET(S) [place] 00 BY MOUTH Medical ONCE A DAY Branch WITH FOOD. ONETOUCH Yes USE TO Univers ULTRA BLUE 1-13 TEST BLOOD ity of TEST STRIP 00:00: GLUCOSE [place] strip 00 ONCE A Medical DAY. [facility] Yes TAKE ONE Unive rs M10 10 mEq 1-13 (1) ity of tablet 00:00: TABLET(S) [place] 00 BY MOUTH Medical ONCE A DAY Branch WITH FOOD. ONETOUCH Yes USE TO Univers ULTRA BLUE 1-13 TEST BLOOD ity of TEST STRIP 00:00: GLUCOSE [place] strip 00 ONCE A Medical DAY. [facility] Yes TAKE ONE Unive rs M10 10 mEq 1-13 (1) ity of tablet 00:00: TABLET(S) [place] 00 BY MOUTH Medical ONCE A DAY Branch WITH FOOD. ONETOUCH Yes USE TO Univers ULTRA BLUE 1-13 TEST BLOOD ity of TEST STRIP 00:00: GLUCOSE [place] strip 00 ONCE A Medical DAY. [facility] Yes TAKE ONE Unive rs M10 10 mEq 1-13 (1) ity of tablet 00:00: TABLET(S) [place] 00 BY MOUTH Medical ONCE A DAY Branch WITH FOOD. ONETOUCH Yes USE TO Univers ULTRA BLUE 1-13 TEST BLOOD ity of TEST STRIP 00:00: GLUCOSE [place] strip 00 ONCE A Medical DAY. [facility] Yes TAKE ONE Unive rs M10 10 mEq 1-13 (1) ity of tablet 00:00: TABLET(S) [place] 00 BY MOUTH Medical ONCE A DAY Branch WITH FOOD. ONETOUCH Yes USE TO Univers ULTRA BLUE 1-13 TEST BLOOD ity of TEST STRIP 00:00: GLUCOSE [place] strip 00 ONCE A Medical DAY. [facility] Yes TAKE ONE Unive rs M10 10 mEq 1-13 (1) ity of tablet 00:00: TABLET(S) [place] 00 BY MOUTH Medical ONCE A DAY Branch WITH FOOD. ONETOUCH Yes USE TO Univers ULTRA BLUE 1-13 TEST BLOOD ity of TEST STRIP 00:00: GLUCOSE [place] strip 00 ONCE A Medical DAY. [facility] Yes TAKE ONE Unive rs M10 10 mEq 1-13 (1) ity of tablet 00:00: TABLET(S) [place] 00 BY MOUTH Medical ONCE A DAY Branch WITH FOOD. ONETOUCH Yes USE TO [facility] ULTRA BLUE 1-13 TEST BLOOD ity of TEST STRIP 00:00: GLUCOSE [place] strip 00 ONCE A Medical DAY. [facility] Yes TAKE ONE Unive rs M10 10 mEq 1-13 (1) ity of tablet 00:00: TABLET(S) [place] 00 BY MOUTH Medical ONCE A DAY Branch WITH FOOD. ONETOUCH Yes USE TO Univers ULTRA BLUE 1-13 TEST BLOOD ity of TEST STRIP 00:00[place] ONCE A Medical DAY. Branch Vital Signs Vital Name Observation Time Observation Value Comments Source Systolic blood 2020-10-27 19:23:00 147 mm[Hg] Univer s[facility] pressure [facility] Diastolic blood 2020-10-27 19:23:00 81 mm[Hg] [facility] [place] pressure Medical Branch Heart rate 2020-10-27 19:23:00 55 /min [facility] Branch Body height 2020-10-27 19:17:00 172.7 cm [facility] Branch Body weight 2020-10-27 19:17:00 86.183 kg [facility] Branch BMI 2020-10-27 19:17:00 28.89 kg/m2 [facility] of [facility] Body height 2020-10-06 19:59:00 172.7 cm [facility]i ty [facility] Body weight 2020-10-06 19:59:00 86.183 kg [facility]i ty [facility] Branch BMI 2020-10-06 19:59:00 28.89 kg/m2 [facility] Body height 2020-09-15 18:32:00 172.7 cm [facility]i ty [facility] Body weight 2020-09-15 18:32:00 90.719 kg [facility] BMI 2020-09-15 18:32:00 30.41 kg/m2 [facility] Branch Procedures Procedure Date / Time Performed Performing Clinician Sour e XR WRIST <3 VW RIGHT 2020-10-27 18:57:09 Deniz Rust [facility] ASSIGNMENT OF BENEFITS 2020-10-27 18:45:23 Doctor Unassigned, No [facility] Name Medical Branch XR WRIST <3 VW RIGHT 2020-10-06 20:30:15 Deniz Rust [facility] MEDICAL 2020-10-01 05:01:00 Doctor Unassigned, No [facility] RELEASE/CLEARANCE Name Medical Branch FORMS EXTERNAL PROVIDER 2020-09-29 05:01:00 Doctor Unassigned, No Univ [facility] RECORDS Name Medical Branch ASSIGNMENT OF BENEFITS 2020-09-15 19:40:27 Doctor Unassigned, No [facility] Medical Branch Encounters Start End Encounter Admission Attending Care Care Encounter Source Date/Time Date/Time Type Type Clinicians Facility Department ID 2021-04-12 Emergency X [facility] [id number] Univers 10:46:54 [facility] 2020-10-27 2020-10-27 [facility] KRYSTIAN Rust [id number] Univers 13:46:32 23:59:00 Encounter Deniz Sutton [id number] ity [id number] [id number] [facility] [address] 2020-10-27 2020-10-27 Office [facility] [id number] Univers 14:10:50 14:49:33 Visit Deniz Alfred [id number] it y of Surgical [id number] Hussein as Specialti [id number] Hi dical es [address] [facility] 2020-10-27 2020-10-27 [facility] [id number] Univers 13:30:00 13:30:00 DENIZ [id number] y [facility] 2020-10-27 2020-10-27 [facility] [id number] Univers 13:30:00 13:30:00 [facility] 2020-10-27 2020-10-27 Orders Doctor MAGALIE [id number] Univers 00:00:00 00:00:00 Only Unassigned, RONY [id number] ity of [place] [facility] [id number] Hussein as [id number] [facility] [address] 2020-10-24 2020-10-24 Telephone [facility] [id number] Univers 00:00:00 00:00:00 Deniz Alfred [id number] it y of Surgical [id number] [place] as Specialti [id number] Me dical es [address] [facility] 2020-10-06 2020-10-06 Hospital [facility] [id number] Univers 15:30:15 23:59:00 Encounter Deniz Alfred [id number] ity of Surgical [id number] [place] as Specialti [id number] Me dical es [address] [facility] 2020-10-06 2020-10-06 Office [facility] [id number] Univers 14:51:21 15:52:33 Visit Deniz Alfred [id number] it y of Surgical 4.2.7.2.686 [place] as Specialti [id number] [facility] es [address] [facility] 2020-10-06 2020-10-06 [facility] [id number] Univers 15:00:00 15:00:00 DENIZ [id number] ity of [facility] 2020-10-06 2020-10-06 [facility] [id number] Univers 15:00:00 15:00:00 DENIZ ity [facility] 2020-10-01 2020-10-01 Orders Doctor MAGALIE [id number] Univers 00:00:00 00:00:00 Only Unassigned, RONY [id number] ity of [place] [facility] 4.2.7.2.686 Hussein as [id number] [facility] [address] 2020-09-30 2020-09-30 Telephone [facility] [id number] Univers 00:00:00 00:00:00 Deniz Demetri Alfred [id number] it y of Surgical 4.2.7.2.686 [place] as Specialti [id number] [facility] es [address] [facility] 2020-09-29 2020-09-29 Orders Doctor MEJIAS [id number] Univers 00:00:00 00:00:00 Only Unassigned, RONY [id number] ity of [place] [facility] 4.2.7.2.686 Hussein as [id number] [facility] [address] 2020-09-15 2020-09-15 Hospital [facility] [id number] Univers 15:15:00 23:59:00 Encounter Deniz Sutton [id number] ity of [place] [id number] [facility] [address] 2020-09-15 2020-09-15 Park Maintainer [facility] [id number] Univers 14:45:49 15:00:49 Visit Milan Rice [id number] ity [place].2.[place] [id number] Me dical nal [address] 2020-09-15 2020-09-15 Office Deniz Rust [facility] 1.2.840. [id number] Univers 13:23:02 14:23:26 Visit Milan Rice [facility] [id number] ity of Surgical 4.2.7.2.686 Hussein as Specialti [id number] Me dical es [address] [place] 2020-09-15 2020-09-15 Outpatient Sarah Beth RICE [facility] [id number] Univers 13:30:00 13:30:00 [facility] [id number] [facility] 2020-09-15 2020-09-15 Outpatient Sarah Beth RICE [facility] [id number] Univers 13:30:00 13:30:00 [facility] ity [facility] 2020-09-15 2020-09-15 Orders Doctor MAGALIE 1.2.840.114 [id number] Univers 00:00:00 00:00:00 Only Unassigned, RONY [id number] ity of [place] [facility] 4.2.7.2.686 Hussein as [id number] [facility] 00[address] Branch Results Test Description Test Time Test Comments Results Result [facility] e Comments XR WRIST <3 VW 2020-10-11 Healing distal Unive rsity of RIGHT 7 radial and ulnar [place] Hi dical 22:54:01 fractures. Mildly Branch prominent pisotriquetral interval.XR WRIST <3 VW RIGHT INDICATION: wrist pain COMPARISON: 10/06/2020 FINDINGS: Healing comminuted distal radial metaphyseal and ulnar styloid fractures.Unchanged volar apex angulation of the radial fracture. Ulnar positivevariance. 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 Mild prominence of thepisotriquetral interval. [facility], Radiant Results Inft User - 10/27/2020 5:55 PM CDTXR WRIST <3 VW RIGHTINDICATION: wrist pain COMPARISON: 10/06/2020FINDINGS:Jacob soto comminuted distal radial metaphyseal and ulnar styloid fractures.Unchanged volar apex angulation of the radial fracture. Ulnar positivevariance. 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 Mild prominence of thepisotriquetral interval.IMPRESSIONHe aling distal radial and ulnar fractures.Mildly prominent pisotriquetral interval. XR WRIST <3 VW 2020-09- Displaced distal Univ ersity of RIGHT 6 radius [place] 21:06:29 signs of callous Branch formation.
[2021-08-19] MEDS ORDERED: D10W 250 ML IV ONE (12:52)
[2021-08-19 13:18] LABS: Absolute Lymphocytes (CBC) 1.3 K/uL (0.7-4.9); Hematocrit 34.2 % (39.6-49.0); Lymphocytes % 9.4 % (15.3-44.8); MPV 9.3 fL (7.6-11.3); RBC Red Blood Cell Count 4.24 M/uL (4.33-5.43)
[2021-08-19 13:21] LABS: Protime INR 1.58
--- NOTE | 2021-08-19 13:35 | RAD REPORT ---
EXAM DESCRIPTION: CT - CTHCSPWOC - 08/19/2021 1:23 pm CLINICAL HISTORY: fallwith head and neck injury, contusion to the forehead COMPARISON: No comparisons TECHNIQUE: Axial 5 mm thick images of the head were obtained. Axial 2 mm thick images of the cervic al spine were obtained with sagittal and coronal reconstruction images generated and reviewed. All CT scans are performed using dose optimization technique as appropriate and may include automated exposure control or mA/KV adjustment according to patient size. FINDINGS: No intracranial hemorrhage, mass, edema or acute intracranial finding. No cortical based i nfarction, cortical edema or sulcal effacement. Moderate atrophy is present with ventricles in propor tion. Mild to moderate chronic ischemic changes are present. No extra-axial fluid collections. Mastoi d air cells are clear. There is chronic left maxillary sinus opacification and bone change. No globe or orbit abnormality seen. Cervical body height and alignment are normal. All disc levels except C2-3 show loss in height. No fr acture or acute bony abnormality. Facet degenerative change and uncovertebral joint hypertrophy prese nt. There is resulting foraminal stenosis on the right at C3-4 and mild bilateral C4-5 foraminal sten osis. Canal is borderline stenotic at C4-5. Mild to moderate C5-6 foraminal stenosis seen with border line spinal stenosis. Moderate severity C6-7 foraminal stenosis present. Central canal detail is inhe rently limited. No paraspinal mass or hematoma. Limited lung apex imaging shows fibrotic stranding and pleural thickening. There is left pleural effu liss present. IMPRESSION: Atrophy and chronic ischemic changes are present with no acute intracranial finding. Multilevel cervical spine degenerative change as detailed. No acute findings seen. Limited lung apex imaging shows pleural and parenchymal fibrotic change with incompletely assessed pl eural effusions.
[2021-08-19 13:38] LABS: Albumin 3.4 g/dL (3.4-5.0); Bilirubin Direct 0.1 mg/dL (0-0.2); Bilirubin Total 0.4 mg/dL (0.2-1.0); Potassium 4.2 mmol/L (3.5-5.1); Protein, Total 7.3 g/dL (6.4-8.2); Troponin High Sensitivity 16.8 pg/mL (<58.9)
[2021-08-19 13:39] LABS: Blood Morphology Comment NOT SEEN (NOT SEEN); Platelet Estimate ADEQ; Platelets, Giant FEW; White Blood Cell Scan OK (OK)
--- NOTE | 2021-08-19 14:01 | RAD REPORT ---
EXAM DESCRIPTION: [place] Single View08/19/2021 1:49 pm CLINICAL HISTORY: Chest pain COMPARISON: 2020 FINDINGS: The lungs appear clear of acute infiltrate. The heart is mildly to moderately enlarged. Small left pleural effusion is present.
--- NOTE | 2021-08-19 14:17 | RAD REPORT ---
EXAM DESCRIPTION: RAD - Forearm Right - 08/19/2021 1:49 pm CLINICAL HISTORY: fall COMPARISON: No comparisons FINDINGS: An acute fracture the form is not identifiable. No elevated posterior fat pad at the elbow joint. The elbow joint and proximal forearm are unremarkable. Distal radius shows remodeling from pr ior fracture. No remnant fracture line is seen. The distal radial fracture fragment healed in a posit ion that is slightly displaced with a 15 degree dorsal angulation. Ununited ulna styloid fracture is seen. There is no dislocation or periosteal reaction noted. No foreign body or other soft tissue abnormality. IMPRESSION: No acute fracture changes are present. There is an old distal radius fracture that is healed in a slightly displaced and dorsally angulated position.
--- NOTE | 2021-08-19 14:17 | RAD REPORT ---
EXAM DESCRIPTION: RAD - Elbow Right 3 View - 08/19/2021 1:49 pm CLINICAL HISTORY: right elbow pain COMPARISON: No comparisons FINDINGS: No fracture is identified and no elevated posterior fat pad. There is no dislocation or pe riosteal reaction noted. No foreign body or other soft tissue abnormality. No other significant findi ng. IMPRESSION: Negative right elbow examination.
--- NOTE | 2021-08-19 15:33 | EDPHYS ---
Physician Documentation [facility] Name: Miles Chowdary Age: 85 yrs Sex: Male : 1935 Arrival Date: 08/19/2021 Time: 12:46 Bed 2 Private MD: ED Physician Ryan Guaman HPI: 08/19 12:56 This 85 yrs old Male presents to ER via EMS with complaints of Low Blood Sugar. jmm 12:56 The patient or guardian reports hypoglycemia. Onset: The symptoms/episode jmm began/occurred acutely, today. Associated signs and symptoms: Pertinent negatives:. 12:56 This is an 85-year-old male with history of hypertension, pancreatic cancer, diabetes jmm mellitus the presents emerged department after a near syncopal episode which occurred earlier today. Patient states he was cleaning his tub and put Clorox in the top. Patient states collapsing but not fully losing consciousness. Family states that the patient was confrontational with the paramedics.. 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 - Social history:: Smoking status: Patient/guardian denies using tobacco, but has a distant history of tobacco abuse. ROS: 12:56 Constitutional: Negative for fever, chills, and weight loss, Cardiovascular: Negative jmm for chest pain, palpitations, and edema, Respiratory: Negative for shortness of breath, cough, wheezing, and pleuritic chest pain, Abdomen/GI: Negative for abdominal pain, nausea, vomiting, diarrhea, and constipation. 12:56 Neuro: Positive for altered mental status. 12:56 Psych: Positive for 12:56 All other systems are negative. Exam: 12:56 Constitutional: This is a well developed, well nourished patient who is awake, alert, jmm and in no acute distress. 12:56 Eyes: EOMI, no conjunctival erythema appreciated ENT: Moist Mucus Membranes Neck: Trachea midline, Supple Chest/axilla: Normal chest wall appearance and motion. Cardiovascular: Regular rate and rhythm. No edema appreciated Respiratory: Normal respirations, no respiratory distress appreciated Abdomen/GI: Non distended, soft Back: Normal ROM Skin: General appearance color normal 12:56 Head/face: Noted is abrasion(s), that are mild, of the forehead. 12:56 Musculoskeletal/extremity: ROM: intact in all extremities. 12:56 Skin: Appearance: Color: normal in color. 12:56 Neuro: Orientation: is normal, Mentation: is normal, Memory: is normal. 12:56 Psych: Behavior/mood is pleasant, cooperative. Vital Signs: 12:30 BP 172 / 117; Pulse 97; Resp 20; Temp 97.0(O); Pulse Ox 98% on 4 lpm NC; Weight 81.65 vg1 kg; Height 5 ft. 8 in. (172.72 cm); Pain 0/10; 14:00 BP 148 / 118; Pulse 93; Resp 22; Pulse Ox 100% on 4 lpm NC; vg1 14:45 BP 119 / 100; Pulse 86; Resp 15; Pulse Ox 98% on 4 lpm NC; vg1 14:47 BP 153 / 93; Pulse 86; Resp 21; Pulse Ox 99% on 2 lpm NC; vg1 16:52 BP 144 / 81; Pulse 77; Pulse Ox 100% on 2 lpm NC; ap3 12:30 Body Mass Index 27.37 (81.65 kg, 172.72 cm) vg1 MDM: 13:02 Patient medically screened. [facility] 15:30 Data reviewed: vital signs, nurses notes. Counseling: I had a detailed discussion with [facility] the patient and/or guardian regarding: the historical points, exam findings, and any diagnostic results supporting the discharge/admit diagnosis, lab results, radiology results, the need for further work-up and treatment in the hospital. ED course: I discussed the patient with Dr. Hairston whom accepted the patient to his service . 03 12:56 Order name: Basic Metabolic Panel; Complete Time: 13:44 vg1 08/19 12:56 Order name: CBC with Diff; Complete Time: 13:44 vg1 08/19 12:56 Order name: LFT's; Complete Time: 13:44 vg1 08/19 12:56 Order name: Magnesium; Complete Time: 13:44 [facility] 03/ 12:56 Order name: NT PRO-BNP; Complete Time: 13:44 [facility] 08/19 12:56 Order name: PT-INR; Complete Time: 13:22 [facility] 08/19 12:56 Order name: Troponin HS; Complete Time: 13:44 1 08/19 12:56 Order name: XRAY Chest (1 view); Complete Time: 14:03 [facility] 08/19 12:58 Order name: Glucose, Ancillary Testing; Complete Time: 13:10 [facility] 08/19 13:01 Order name: CT Head C Spine; Complete Time: 13:44 [facility] 08/19 13:21 Order name: CBC Smear Scan; Complete Time: 13:44 [facility] 08/19 13:53 Order name: Glucose, Ancillary Testing; Complete Time: 14:03 [facility] 08/19 14:04 Order name: SARS-COV-2 RT PCR (Document "Date of Onset" if Symptomatic); Complete Time: [facility] 16:10 08/19 17:02 Order name: Glucose, Ancillary Testing; Complete Time: 17:14 [facility] 08/19 12:56 Order name: EKG; Complete Time: 12:57 [facility] 08/19 12:56 Order name: Cardiac monitoring; Complete Time: 13:07 [facility] 08/19 12:56 Order name: EKG - Nurse/Tech; Complete Time: 13:07 [facility] 08/19 12:56 Order name: IV Saline Lock; Complete Time: 13:07 [facility] 08/19 12:56 Order name: Labs collected and sent; Complete Time: 13:14 [facility] 08/19 12:56 Order name: O2 Per Protocol; Complete Time: 13:07 [facility] 08/19 12:56 Order name: O2 Sat Monitoring; Complete Time: 13:07 [facility] 08/19 13:01 Order name: Elbow Right 3 View XRAY; Complete Time: 14:18 [facility] 08/19 13:02 Order name: Forearm Right XRAY; Complete Time: 14:18 [facility] Administered Medications: 12:50 Drug: D10 in Water [2 mL/kg] 2 ml/kg Route: IVP; Site: right antecubital; vg1 17:06 Follow up: Response: No adverse reaction; Blood sugar is elevated vg Disposition Summary: 08/19/21 15:32 Hospitalization Ordered Hospitalization Status: Observation jmm Provider: Emory Hairston Location: Telemetry/MedSurg (observation) jmm Condition: Stable jmm Problem: new jmm Symptoms: have improved jmm Bed/Room Type: Standard m Room Assignment: 219(08/19/21 16:46) dw Diagnosis - Altered mental status, unspecified jmm - Hypoglycemia, unspecified jmm - Syncope Near jmm Forms: - Medication Reconciliation Form jmm - SBAR form jmm Addendum: 08/23/2021 18:20 Co-signature as Attending Physician, Ryan Guaman MD I agree with the assessment and c pierce plan of care. Signatures: Dispatcher [employer] Farhana Ontiveros RN Ryan Cox MD MD cha Mickail, Joel, PA PA jmm Prokisch, Amanda RN RN ap3 Bibiana Juarez RN RN vg1 Corrections: (The following items were deleted from the chart) 08/19 16:46 15:32 jmm dw
--- NOTE | 2021-08-19 15:33 | ER ---
Nurse's Notes [facility] Name: Miles Chowdary Age: 85 yrs Sex: Male : 1935 Arrival Date: 08/19/2021 Time: 12:46 Bed 2 Private MD: Diagnosis: Altered mental status, unspecified;Hypoglycemia, unspecified;Syncope Near Presentation: 08/19 12:30 Chief complaint: Patient states: 'i may have accidently took too much of one of vg1 medications' EMS states: Pt was cleaning restroom and felt weak and fell last night. Pt was found this morning by granddaughter around 1100. EMS states bathroom smelled of 'heavy bleach' and floors were wet; states pt was 'combative' and pt 'lips were blue' and pt was hypoxic. States once in truck took pt FSBG and results read 31 and placed pt on 02 of 4 L NC and pt was AOx 4. Care prior to arrival: Cervical collar in place. Medication(s) given: D10, fpc through pt FSBG was 77; once completed pt FSBG was 66. Pt was also given Oral glucose of 15 g IV initiated. 20 GA, in the right antecubital area. 12:30 Coronavirus screen: Vaccine status: Patient reports receiving the 2nd dose of the covid vg1 vaccine. Client denies travel out of the [place] in the last 14 days. Ebola Screen: Patient negative for fever greater than or equal to 101.5 degrees Fahrenheit, and additional compatible Ebola Virus Disease symptoms. Initial Sepsis Screen: Does the patient meet any 2 criteria? No. Patient's initial sepsis screen is negative. Does the patient have a suspected source of infection? No. Patient's initial sepsis screen is negative. Risk Assessment: Do you want to hurt yourself or someone else? Patient reports no desire to harm self or others. Onset of symptoms was August 18, 2021. 12:30 Method Of Arrival: EMS: [facility] vg1 12:30 Acuity: MILDRED 2 vg1 Triage Assessment: 12:30 General: Appears in no apparent distress. comfortable, Behavior is calm, cooperative. vg1 Pain: Denies pain. EENT: No signs and/or symptoms were reported regarding the EENT system. Neuro: Level of Consciousness is awake, alert, obeys commands, Oriented to person, place, time, situation. Cardiovascular: Patient's skin is warm and dry. Respiratory: Airway is patent Respiratory effort is even, unlabored. GI: No signs and/or symptoms were reported involving the gastrointestinal system. : No signs and/or symptoms were reported regarding the genitourinary system. Derm: appears to have a skin tear to Right forearm, Right elbow, and Right ear. Musculoskeletal: Circulation, motion, and sensation intact. 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 - Social history:: Smoking status: Patient/guardian denies using tobacco, but has a distant history of tobacco abuse. Screenin:00 Abuse screen: Denies threats or abuse. Nutritional screening: No deficits noted. vg1 Tuberculosis screening: No symptoms or risk factors identified. Fall Risk Fall in past 12 months (25 points). No secondary diagnosis (0 pts). IV access (20 points). Ambulatory Aid- None/Bed Rest/Nurse Assist (0 pts). Gait- Weak (10 pts.). Mental Status- Oriented to own ability (0 pts). Total Hanna Fall Scale indicates High Risk Score (45 or more points). Fall prevention measures have been instituted. Side Rails Up X 2 Placed Close to Nursing Station Family Present and informed to notify staff if the need to leave the bedside. Assessment: 12:35 Reassessment: SEE TRIAGE. vg1 12:44 Reassessment: Pt FSBG read 'LOW' pt given Apple Juice. vg1 14:45 Reassessment: Patient appears in no apparent distress at this time. Patient and/or vg1 family updated on plan of care and expected duration. Pain level reassessed. Patient is alert, oriented x 3, equal unlabored respirations, skin warm/dry/pink. Patient states feeling better. Vital Signs: 12:30 BP 172 / 117; Pulse 97; Resp 20; Temp 97.0(O); Pulse Ox 98% on 4 lpm NC; Weight 81.65 vg1 kg; Height 5 ft. 8 in. (172.72 cm); Pain 0/10; 14:00 BP 148 / 118; Pulse 93; Resp 22; Pulse Ox 100% on 4 lpm NC; vg1 14:45 BP 119 / 100; Pulse 86; Resp 15; Pulse Ox 98% on 4 lpm NC; vg1 14:47 BP 153 / 93; Pulse 86; Resp 21; Pulse Ox 99% on 2 lpm NC; vg1 16:52 BP 144 / 81; Pulse 77; Pulse Ox 100% on 2 lpm NC; ap3 12:30 Body Mass Index 27.37 (81.65 kg, 172.72 cm) vg1 ED Course: 12:30 Arm band placed on. vg1 12:46 Patient arrived in ED. vg1 12:46 Bibiana Juarez RN is Primary Nurse. vg1 12:59 Kyler Barahona PA is PHCP. jmm 12:59 Ryan Guaman MD is Attending Physician. jmm 13:00 Patient has correct armband on for positive identification. Placed in gown. Bed in low vg1 position. Call light in reach. Side rails up X2. Adult w/ patient. 13:13 Maintain EMS IV. Dressing intact. Good blood return noted. Site clean \\T\\ dry. Gauge \\T\\ ap 3 site: 20g right AC. 13:16 Triage completed. vg1 13:24 CT Head C Spine In Process Unspecified. EDMS 13:48 XRAY Chest (1 view) In Process Unspecified. EDMS 13:48 Elbow Right 3 View XRAY In Process Unspecified. EDMS 13:49 Forearm Right XRAY In Process Unspecified. EDMS 15:31 Emory Hairston is Hospitalizing Provider. jmm 17:07 No provider procedures requiring assistance completed. Patient admitted, IV remains in vg1 place. Administered Medications: 12:50 Drug: D10 in Water [2 mL/kg] 2 ml/kg Route: IVP; Site: right antecubital; vg1 17:06 Follow up: Response: No adverse reaction; Blood sugar is elevated vg1 Outcome: 15:32 Decision to Hospitalize by Provider. jm 17:06 Admitted to Tele accompanied by tech, via stretcher, room 219, with chart, Report vg1 called to Avis WILLOUGHBY 17:06 Condition: good 17:06 Instructed on the need for admit. 17:26 Patient left the ED. ap3 Signatures: Dispatcher [employer] EDMS Kyler Barahona PA PA jmm Prokisch, Amanda RN RN ap3 Bibiana Juarez RN RN vg1 Corrections: (The following items were deleted from the chart) 13:18 12:30 Chief complaint: EMS states: Pt was cleaning restroom and felt weak and fell last vg1 night. Pt was found this morning by granddaughter around 1100. EMS states bathroom smelled of 'heavy bleach' and floors were wet; states pt was 'combative' and pt 'lips were blue' and pt was hypoxic. States once in truck took pt FSBG and results read 31 and placed pt on 02 of 4 L NC and pt was AOx 4. vg1 13:23 13:13 D10 in Water [2 mL/kg] 2 ml/kg IVP in right antecubital ap3 vg1
--- NOTE | 2021-08-19 15:44 | P.HP ---
Certification for Inpatient Patient admitted to: Observation With expected LOS: <2 Midnights Practitioner: I am a practitioner with admitting privileges, knowledge of patient current condition, hospital course, and medical plan of care. Services: Services provided to patient in accordance with Admission requirements found in Title 42 Section 412.3 of the Code of Federal Regulations Patient History Date of Service: 08/19/21 Reason for admission: Altered mental status History of Present Illness: 85-year-old gentleman with a history of Whipple's procedure, diabetes mellitus type 2, breast cancer status post left mastectomy was brought to the emergency department due to altered mental status. Per report, patient fell last night while cleaning his bathroom. Ground daughter found him lying on a wet floor with chlorine bleach. EMS was called who found him with low blood sugar of 31 and hypoxic. Patient was given D10, placed on oxygen by EMS on the way to the emergency department. Blood sugar measured in the ED was less than 20. Patient given IV D10. Blood sugar was in the low 100s during my examination in the ED. Patient more alert now and communicating meaningfully. Patient is hospitalized for further management. Allergies No Known Allergies Allergy (Unverified 03/29/12 14:33) Home Medications: Alendronate Sodium [Fosamax] 70 mg PO UD 03/29/12 Glyburide/Metformin HCl [Glucovance 2.5-500 mg Tablet] 0.5 tab PO BID 03/29/12 Digoxin 0.25 mg PO DAILY #0 tablet 03/31/12 Furosemide [Lasix] 20 mg PO DAILY #0 tablet 03/31/12 Lisinopril [Prinivil] 10 mg PO DAILY #0 tablet 03/31/12 Potassium Chloride 10 meq PO DAILY #0 capsule.er 03/31/12 Rivaroxaban [Xarelto] 20 mg PO DAILY #0 tablet 03/31/12 Sotalol HCl [Betapace] 80 mg PO TID #0 tablet 03/31/12 - Past Medical/Surgical History Diabetic: Yes -: Diabetes mellitus type 2 -: Chronic atrial fibrillation -: Chronic diastolic heart failure -: History of breast cancer -: History of pancreatic cancer -: Whipple's procedure -: Left mastectomy - Family History Family History: Reviewed- Non-Contributory - Social History Smoking Status: Former smoker Alcohol use: Yes CD- Drugs: No Caffeine use: Yes Place of Residence: Home Review of Systems Other: Except as documented, all other systems reviewed and negative. Physical Examination - Physical Exam General: In no apparent distress, Oriented x3, Cooperative HEENT: Mucous membr. moist/pink, Sclerae nonicteric Neck: JVD not distended Respiratory: Clear to auscultation bilaterally, Normal air movement Cardiovascular: Normal S1 S2, Edema (2+ bilateral lower extremity pitting edema), Irregular heart rate/rhythm Gastrointestinal: Normal bowel sounds, Soft and benign, Non-distended, No tenderness Musculoskeletal: No swelling, No tenderness Integumentary: No rashes, No cyanosis Neurological: Normal speech, Normal strength at 5/5 x4 extr, Cranial nerves 3-12 intact Lymphatics: No axilla or inguinal lymphadenopathy - Studies Laboratory Data (last 24 hrs) 08/19/21 13:09: PT 18.3 H, INR 1.58 08/19/21 13:09: WBC 13.50 H, Hgb 10.8 L, Hct 34.2 L, Plt Count 344 08/19/21 13:09: Sodium 139, Potassium 4.2, BUN 16, Creatinine 0.93, Glucose 131 H, Magnesium 2.0, Total Bilirubin 0.4, AST 36, ALT 36, Alkaline Phosphatase 200 H Assessment and Plan - Problems (Diagnosis) (1) Hypoglycemia due to type 2 diabetes mellitus Current Visit: Yes Status: Acute (2) Chronic atrial fibrillation Current Visit: Yes Status: Acute (3) Acute on chronic diastolic heart failure Current Visit: Yes Status: Acute (4) Acute respiratory failure with hypoxia Current Visit: Yes Status: Acute - Plan Place patient under observation. Hold glipizide. Monitor blood sugar. Dextrose infusion as needed for hypoglycemia Insulin sliding scale for hyperglycemia. We will treat diastolic heart failure with IV Lasix. Monitor renal function Check TSH. Wean off oxygen. Continue sotalol and Xarelto for atrial fibrillation. - Advance Directives Does patient have a Living Will: Yes Does patient have a Durable POA for Healthcare: Yes
[2021-08-19] MEDS: INSULIN -REGULAR HUMAN 50 UNIT/0.5 ML ML SQ SCH ×2 (17:23→20:56)
[2021-08-19 17:27] VITALS: BMI 27.3
[2021-08-19 17:40] VITALS: O2SAT 100
[2021-08-19] MEDS: NA CHLORIDE 0.9% 1,000 ML IV SCH (18:11)
[2021-08-19] MEDS: ENOXAPARIN 40 MG/0.4 ML SQ SCH (18:11)
[2021-08-19 18:21] LABS: Urine Appearance CLEAR (Clear); Urine Bilirubin NEGATIVE (Negative); Urine Blood 3+ (Negative); Urine Color YELLOW (Yellow); Urine Glucose NEGATIVE (Negative); Urine Protein NEGATIVE (Negative); Urine Specific Gravity 1.015 (1.005-1.030); Urine Urobilinogen 0.2 mg/dL (0.2-1.0)
[2021-08-19 18:26] LABS: Urine Microscopic Reflex ORDER UMIC
[2021-08-19 18:49] LABS: Urine Bacteria <20 /HPF (NONE SEEN)
[2021-08-20] MEDS: NA CHLORIDE 0.9% 1,000 ML IV SCH ×2 (03:23→13:23)
[2021-08-20 05:34] LABS: Absolute Lymphocytes (CBC) 1.3 K/uL (0.7-4.9); Hematocrit 30.3 % (39.6-49.0); Lymphocytes % 15.1 % (15.3-44.8); RBC Red Blood Cell Count 3.76 M/uL (4.33-5.43)
[2021-08-20 06:01] LABS: Magnesium 2.1 mg/dL (1.8-2.4); Phosphorus 2.1 mg/dL (2.5-4.9); Thyroid Stimulating Hormone 1.99 uIU/mL (0.360-3.740)
[2021-08-20] MEDS: INSULIN -REGULAR HUMAN 50 UNIT/0.5 ML ML SQ SCH ×3 (07:30→16:13)
[2021-08-20] MEDS ORDERED: POTASSIUM CL SA 10 MEQ TAB PO SCH (09:00)
[2021-08-20] MEDS ORDERED: FUROSEMIDE 40 MG TABLET PO SCH (09:00)
[2021-08-20] MEDS: ENOXAPARIN 40 MG/0.4 ML SQ SCH (09:00)
[2021-08-20] MEDS ORDERED: lisinopriL 20 MG TAB PO SCH (09:00)
[2021-08-20] MEDS: SOTALOL HCL 80 MG TAB PO SCH ×2 (09:44→13:03)
[2021-08-20] MEDS: POTASS/SODIUM PHOSPHATE 1 PKT POWD.PACK PO SCH ×3 (11:56→14:24)
[2021-08-20] MEDS ORDERED: HYDRALAZINE HCL 20 MG/ML VIAL IV PRN (13:20)
--- NOTE | 2021-08-20 15:39 | P.PN ---
Subjective Date of Service: 08/20/21 Chief Complaint: Altered mental status Patient was hypoglycemic this morning. Blood pressure is elevated. It appears he has some memory impairment. He has no new complaint. Physical Examination - Vital Signs Temperature: 97.6 F Blood Pressure: 190/102 Pulse: 91 Respirations: 16 Pulse Ox (%): 99 - Physical Exam General: Alert, In no apparent distress, Oriented x3 HEENT: Mucous membr. moist/pink Neck: JVD not distended Respiratory: Clear to auscultation bilaterally, Normal air movement Cardiovascular: No edema, Normal S1 S2, Irregular heart rate/rhythm Gastrointestinal: Soft and benign, Non-distended, No tenderness Musculoskeletal: No swelling Integumentary: No rashes, No cyanosis Assessment And Plan - Current Problems (Diagnosis) (1) Hypoglycemia due to type 2 diabetes mellitus Current Visit: Yes Status: Acute (2) Chronic atrial fibrillation Current Visit: Yes Status: Acute (3) Acute on chronic diastolic heart failure Current Visit: Yes Status: Acute (4) Acute respiratory failure with hypoxia Current Visit: Yes Status: Acute - Plan Acute respiratory failure resolved. Patient is tolerating room air. Glipizide is on hold Continue to monitor blood sugar. Dextrose infusion as needed for hypoglycemia Insulin sliding scale for hyperglycemia. Resume home dose Lasix. TSH within normal limit. Monitor renal function Blood pressure severely elevated today. Continue home antihypertensives, added hydralazine as needed for BP spikes. Continue sotalol and Xarelto for atrial fibrillation. Discharge once patient is not hypoglycemic..
[2021-08-20 15:49] VITALS: BP 144/68; TEMP 97.8
--- NOTE | 2021-08-20 17:40 | P.DS ---
Admission Date: 08/19/21 Discharge Date: 08/20/21 Disposition: ROUTINE DISCHARGE Discharge Condition: FAIR Reason for Admission: Altered mental status - Problems (1) Hypoglycemia due to type 2 diabetes mellitus Current Visit: Yes Status: Acute (2) Chronic atrial fibrillation Current Visit: Yes Status: Acute (3) Acute on chronic diastolic heart failure Current Visit: Yes Status: Acute (4) Acute respiratory failure with hypoxia Current Visit: Yes Status: Acute Brief History of Present Illness: 85-year-old gentleman with a history of Whipple's procedure, diabetes mellitus type 2, breast cancer status post left mastectomy was brought to the emergency department due to altered mental status. Per report, patient fell last night while cleaning his bathroom. Ground daughter found him lying on a wet floor with chlorine bleach. EMS was called who found him with low blood sugar of 31 and hypoxic. Patient was given D10, placed on oxygen by EMS on the way to the emergency department. Blood sugar measured in the ED was less than 20. Patient given IV D10. Blood sugar was in the low 100s during my examination in the ED. Patient more alert now and communicating meaningfully. Patient hospitalized for further management. Hospital Course: Return to the medical floor and treated with supportive measures including IV fluid. He had one episode of hypoglycemia during the hospital stay, otherwise his blood sugar was stable. The effect of the glipizide should have worn off by now. His blood pressure was elevated and he received a dose of IV hydralazine. Patient mental status is currently at baseline and asymptomatic. He is deemed stable for discharge. Vital Signs/Physical Exam: Temp Pulse Resp BP Pulse Ox 97.8 F 70 16 144/68 H 97 08/20/21 15:48 08/20/21 15:48 08/20/21 15:48 08/20/21 15:48 08/20/21 15:48 General: Alert, In no apparent distress, Oriented x3 HEENT: Mucous membr. moist/pink Neck: JVD not distended Respiratory: Clear to auscultation bilaterally, Normal air movement Cardiovascular: No edema, Regular rate/rhythm, Normal S1 S2 Gastrointestinal: Soft and benign, Non-distended, No tenderness Musculoskeletal: No swelling Integumentary: No rashes Neurological: Normal speech, Normal strength at 5/5 x4 extr Laboratory Data at Discharge: WBC 8.70 K/uL (4.3-10.9) D 08/20/21 05:22 Hgb 9.6 g/dL (13.6-17.9) L 08/20/21 05:22 Hct 30.3 % (39.6-49.0) L 08/20/21 05:22 Plt Count 279 K/uL (152-406) 08/20/21 05:22 PT 18.3 SECONDS (9.5-12.5) H 08/19/21 13:09 INR 1.58 08/19/21 13:09 Sodium 142 mmol/L (136-145) 08/20/21 05:22 Potassium 4.0 mmol/L (3.5-5.1) 08/20/21 05:22 BUN 15 mg/dL (7-18) 08/20/21 05:22 Creatinine 0.82 mg/dL (0.55-1.3) 08/20/21 05:22 Glucose 78 mg/dL (74-106) 08/20/21 05:22 Phosphorus 2.1 mg/dL (2.5-4.9) L 08/20/21 05:22 Magnesium 2.1 mg/dL (1.8-2.4) 08/20/21 05:22 Total Bilirubin 0.4 mg/dL (0.2-1.0) 08/19/21 13:09 AST 36 U/L (15-37) 08/19/21 13:09 ALT 36 U/L (12-78) 08/19/21 13:09 Alkaline Phosphatase 200 U/L (45-117) H 08/19/21 13:09 Home Medications: Potassium Chloride 10 meq PO DAILY #0 capsule.er 03/31/12 Sotalol HCl [Betapace] 80 mg PO TID #0 tablet 03/31/12 Furosemide 1 tab PO DAILY 08/19/21 Rivaroxaban [Xarelto] 20 mg PO BEDTIME 08/19/21 lisinopriL [Lisinopril] 1 tab PO DAILY 08/19/21 Physician Discharge Instructions: Please do not take your diabetes medications until your blood sugar is greater than 200. Check your blood sugar every morning. Diet: ADA Activity: Ad stormy Followup: NONE,NONE [Primary Care Provider] -
[2021-08-20] MEDS ORDERED: RIVAROXABAN 20 MG TABLET PO SCH (21:00)
== END 2021-08-20 19:00 | disposition home or self-care (01) ==
LOC: ER 12:29 → ERHOLD 15:00 → 2ND 17:07
PROVIDERS: ADMIT Internal Medicine; ATTEND Internal Medicine
DX: E11.649 Type 2 diabetes mellitus with hypoglycemia without coma (principal); J96.01 Acute respiratory failure with hypoxia; I11.0 Hypertensive heart disease with heart failure; I50.33 Acute on chronic diastolic (congestive) heart failure; I48.20 Chronic atrial fibrillation, unspecified; Z79.899 Other long term (current) drug therapy; Z85.3 Personal history of malignant neoplasm of breast; Z90.12 Acquired absence of left breast and nipple; Z87.891 Personal history of nicotine dependence; Z85.828 Personal history of other malignant neoplasm of skin; Z85.07 Personal history of malignant neoplasm of pancreas; Z20.822 Contact with and (suspected) exposure to COVID-19
CPT/HCPCS: 93005 ×2; 85025 ×2; 80048 ×2; 36415; 83735 ×2; 84100; 85610; 82947 ×8; 80076; 84443; 84484; 83880; 70450; 72125; 71045; 73080; 73090; 99285; U0003; J1650 ×3; J7030 ×2; G0378 ×3; 81003; 81015

== ENCOUNTER 2021-12-10 07:47 | Observation (INO) | payer OTHER ==
--- NOTE | 2021-12-10 09:13 | RAD REPORT ---
EXAM DESCRIPTION: CT - Head C Spine Cap Wo Con - 12/10/2021 8:46 am CLINICAL HISTORY: Trauma, head and neck injury. Chest, abdomen and pelvis pain. fall COMPARISON: Head C Spine Mpr Wo Con dated 08/19/2021; Chest For Pe Angio dated 09/10/2020; CT ABD PELVI S W CONTRAST dated 12/24/2009 TECHNIQUE: CT head without contrast. CT cervical spine without contrast with coronal and sagittal reformatted images. CT chest, abdomen and pelvis with coronal and sagittal reformatted images of the spine. All CT scans are performed using dose optimization technique as appropriate and may include automated exposure control or mA/KV adjustment according to patient size. FINDINGS: CT HEAD WITHOUT CONTRAST: No intracranial hemorrhage, hydrocephalus or extra-axial fluid collection. No acute large vascular te rritory infarct. Cerebral atrophy. Left maxillary sinus opacification. The calvarium is intact. CT CERVICAL SPINE WITHOUT CONTRAST: No acute fracture. Chronic anterolisthesis of C7 on T1 by approximately 5 millimeters. Multilevel deg enerative changes are present in the spine. The prevertebral soft tissues are normal in thickness. CT CHEST, ABDOMEN, PELVIS: Thorax: Chest Wall: No abnormal mass Lungs: Interlobular septal thickening bilaterally. Pleura: Small pleural effusions. Lauren/Mediastinum: No lymphadenopathy. Aorta/Pulmonary Arteries: Unremarkable Heart: Cardiomegaly. Multi-vessel coronary artery disease. Abdomen/Pelvis: Liver: Nodular liver contour. Biliary: Cholecystectomy Stomach: No significant focal abnormality. Duodenum: No significant focal abnormality. Pancreas: Pronounced pancreatic atrophy. Spleen: No significant abnormality. Adrenal: No suspicious lesions. Kidney/ureter: No hydronephrosis. 2.1 cm exophytic right renal lesion is not significantly changed si nce 12/25/2019. Indeterminate right lower pole renal lesion measuring 14 millimeters. Retroperitoneum: No retroperitoneal adenopathy. Vascular: No aneurysm. Bowel: No significant focal abnormality. Peritoneum: Small fat containing ventral hernia. Small fat containing umbilical hernia. Body wall ashely ma. Bladder: Grossly unremarkable. Reproductive: No adnexal masses. Bones: Remote bilateral rib fractures. No acute fractures seen. Other: n/a IMPRESSION: 1. No acute intracranial abnormality. 2. No acute fracture or traumatic malalignment of the cervical spine. 3. No evidence of significant trauma to the chest, abdomen, or pelvis. 4. Interlobular septal thickening and small effusions could reflect edema.
--- NOTE | 2021-12-10 09:18 | RAD REPORT ---
EXAM DESCRIPTION: RAD - Chest Single View - 12/10/2021 9:03 am CLINICAL HISTORY: COUGH COMPARISON: Chest Single View dated 08/19/2021; Chest Single View dated 09/10/2020; CHEST SINGLE VIEW d ated 03/29/2012; CHEST SINGLE VIEW dated 12/24/2009 FINDINGS: Lines: None. Lungs: No evidence of edema or pneumonia. Similar prominence of the pulmonary interstitium. Pleural: No significant pleural effusions or pneumothorax. Cardiac: Cardiomegaly. Bones: No acute fractures. Other: IMPRESSION: No acute cardiopulmonary disease.
[2021-12-10 09:30] LABS: Absolute Lymphocytes (CBC) 1.1 K/uL (0.7-4.9); Lymphocytes % 10.8 % (15.3-44.8); MCV 78.7 fL (80-100); MPV 9.3 fL (7.6-11.3); RBC Red Blood Cell Count 4.07 M/uL (4.33-5.43)
--- NOTE | 2021-12-10 09:32 | RAD REPORT ---
EXAM DESCRIPTION: US - Extrem Venous W Compress Bert - 12/10/2021 9:03 am CLINICAL HISTORY: Pain COMPARISON: No comparisons TECHNIQUE: Real-time sonographic evaluation of the lower extremity deep venous systems was performed using color Doppler, grayscale, and compression. FINDINGS: Bilateral lower extremities. Normal compressibility, flow augmentation, phasic flow and spontaneous flow is identified in both the left and right lower extremity deep venous systems. No intraluminal filling defects seen. IMPRESSION: No DVT in either lower extremity.
[2021-12-10 09:38] LABS: Protime INR 1.21
[2021-12-10 09:53] LABS: Albumin 2.9 g/dL (3.4-5.0); Bilirubin Direct 0.2 mg/dL (0-0.2); Bilirubin Total 0.5 mg/dL (0.2-1.0); Magnesium 1.7 mg/dL (1.8-2.4); Potassium 4.1 mmol/L (3.5-5.1); Protein, Total 5.9 g/dL (6.4-8.2); Troponin High Sensitivity 13.4 pg/mL (<58.9)
--- NOTE | 2021-12-10 10:06 | EDPHYS ---
Physician Documentation [facility] Name: Miles Chowdary Age: 85 yrs Sex: Male : 1935 Arrival Date: 12/10/2021 Time: 07:48 Bed 18 Private MD: ED Physician Ryan Guaman HPI: 12/10 09:55 This 85 yrs old Male presents to ER via EMS with complaints of Fall Injury. sohail 09:55 Details of fall: The patient fell from an upright position, while walking. Onset: The sohail symptoms/episode began/occurred just prior to arrival. Associated injuries: The patient sustained injury to the head. Severity of symptoms: At their worst the symptoms were mild, in the emergency department the symptoms are unchanged. The patient has not experienced similar symptoms in the past. Historical: - Allergies: 07:50 Farxiga; pierce - Home Meds: 07:50 Furosemide Oral [Active]; lisinopril Oral [Active]; Metformin Oral [Active]; Potassium pierce Chloride Oral [Active]; sotalol Oral [Active]; Xarelto Oral [Active]; - PMHx: 07:50 "Male breast CA"; Hypertension; pancreatic cancer; skin cancer; pierce - Immunization history:: Adult Immunizations up to date. - Social history:: Smoking status: Patient denies any tobacco usage or history of. ROS: 09:57 Constitutional: Negative for fever, chills, and weight loss, Eyes: Negative for injury, sohail pain, redness, and discharge, ENT: Negative for injury, pain, and discharge, Neck: Negative for injury, pain, and swelling, Cardiovascular: Negative for chest pain, palpitations, and edema, Respiratory: Negative for shortness of breath, cough, wheezing, and pleuritic chest pain, Abdomen/GI: Negative for abdominal pain, nausea, vomiting, diarrhea, and constipation, Back: Negative for injury and pain, : Negative for injury, bleeding, discharge, and swelling, MS/Extremity: Negative for injury and deformity, Skin: Negative for injury, rash, and discoloration, Psych: Negative for depression, anxiety, suicide ideation, homicidal ideation, and hallucinations, Allergy/Immunology: Negative for hives, rash, and allergies, Endocrine: Negative for neck swelling, polydipsia, polyuria, polyphagia, and marked weight changes, Hematologic/Lymphatic: Negative for swollen nodes, abnormal bleeding, and unusual bruising. 09:57 Neuro: Positive for headache. Exam: 09:57 Constitutional: This is a well developed, well nourished patient who is awake, alert, sohail and in no acute distress. Head/Face: Normocephalic, atraumatic. Eyes: Pupils equal round and reactive to light, extra-ocular motions intact. Lids and lashes normal. Conjunctiva and sclera are non-icteric and not injected. Cornea within normal limits. Periorbital areas with no swelling, redness, or edema. ENT: Nares patent. No nasal discharge, no septal abnormalities noted. Tympanic membranes are normal and external auditory canals are clear. Oropharynx with no redness, swelling, or masses, exudates, or evidence of obstruction, uvula midline. Mucous membranes moist. Neck: Trachea midline, no thyromegaly or masses palpated, and no cervical lymphadenopathy. Supple, full range of motion without nuchal rigidity, or vertebral point tenderness. No Meningismus. Chest/axilla: Normal chest wall appearance and motion. Nontender with no deformity. No lesions are appreciated. Cardiovascular: Regular rate and rhythm with a normal S1 and S2. No gallops, murmurs, or rubs. Normal PMI, no JVD. No pulse deficits. Respiratory: Lungs have equal breath sounds bilaterally, clear to auscultation and percussion. No rales, rhonchi or wheezes noted. No increased work of breathing, no retractions or nasal flaring. Abdomen/GI: Soft, non-tender, with normal bowel sounds. No distension or tympany. No guarding or rebound. No evidence of tenderness throughout. Back: No spinal tenderness. No costovertebral tenderness. Full range of motion. Male : Normal genitalia with no discharge or lesions. Skin: Warm, dry with normal turgor. Normal color with no rashes, no lesions, and no evidence of cellulitis. Neuro: Awake and alert, GCS 15, oriented to person, place, time, and situation. Cranial nerves II-XII grossly intact. Motor strength 5/5 in all extremities. Sensory grossly intact. Cerebellar exam normal. Normal gait. Psych: Awake, alert, with orientation to person, place and time. Behavior, mood, and affect are within normal limits. 09:57 ECG was reviewed by the Attending Physician. 09:57 Musculoskeletal/extremity: ROM: no acute changes, intact in all extremities, Circulation is intact in all extremities. Sensation intact. Compartment Syndrome exam of affected extremity: is normal. Weight bearing: able to fully bear weight, without difficulty, DVT Exam: swelling, that is mild, of the right leg and left leg. Vital Signs: 07:48 BP 156 / 96; Pulse 102; Resp 19; Temp 97.9(T); Pulse Ox 96% on R/A; Weight 90.72 kg; pierce Height 5 ft. 8 in. (172.72 cm); 07:48 Body Mass Index 30.41 (90.72 kg, 172.72 cm) pierce Anh Coma Score: 07:57 Eye Response: spontaneous(4). Verbal Response: oriented(5). Motor Response: obeys pierce commands(6). Total: 15. 09:59 Eye Response: spontaneous(4). Verbal Response: oriented(5). Motor Response: obeys sohail commands(6). Total: 15. Trauma Score (Adult): 07:57 Eye Response: spontaneous(1); Verbal Response: oriented(1); Motor Response: obeys pierce commands(2); Systolic BP: > 89 mm Hg(4); Respiratory Rate: 10 to 29 per min(4); [place] Score: 15; Trauma Score: 12 MDM: 07:54 Patient medically screened. sohail 09:59 Differential diagnosis: Contusion of Hematoma on Intracranial bleed-. Differential sohail diagnosis: closed head injury, contusion, fracture, laceration. Data reviewed: vital signs, nurses notes, lab test result(s), EKG, radiologic studies, CT scan, plain films. Data interpreted: front desk monitor: rate is 102 beats/min, rhythm is regular, Pulse oximetry: on room air is 96 %. Test interpretation: by ED physician or midlevel provider: ECG, plain radiologic studies. Counseling: I had a detailed discussion with the patient and/or guardian regarding: the historical points, exam findings, and any diagnostic results supporting the discharge/admit diagnosis, lab results, radiology results, the need for outpatient follow up, for definitive care, an classroom instructional aide. 12/10 08:15 Order name: Basic Metabolic Panel; Complete Time: 09:55 [facility] 12/10 08:15 Order name: CBC with Diff; Complete Time: 09:52 [facility] 12/10 08:15 Order name: LFT's; Complete Time: 09:55 [facility] 12/10 08:15 Order name: Magnesium; Complete Time: 09:55 12/10 08:15 Order name: NT PRO-BNP; Complete Time: 09:55 [facility] 12/10 08:15 Order name: PT-INR; Complete Time: 09:52 [facility] 12/10 08:15 Order name: Troponin HS; Complete Time: 09:55 12/10 08:15 Order name: XRAY Chest (1 view); Complete Time: 09:52 sohail 12/10 08:15 Order name: CT Traumagram (Head C Spine CAP wo con); Complete Time: 09:52 [facility] 12/10 08:15 Order name: Urine Culture [facility] 12/10 08:15 Order name: US Extremity Venous W Compression Bert; Complete Time: 09:52 [facility] 12/10 08:15 Order name: SARS-COV-2 RT PCR (Document "Date of Onset" if Symptomatic); Complete Time: [facility] 12:11 12/10 10:47 Order name: MRI Stroke Protocol eb 12/10 08:15 Order name: EKG; Complete Time: 08:16 [facility] 12/10 08:15 Order name: Cardiac monitoring; Complete Time: 09:22 [facility] 12/10 08:15 Order name: EKG - Nurse/Tech; Complete Time: 09:42 [facility] 12/10 08:15 Order name: IV Saline Lock; Complete Time: 09:22 [facility] 12/10 08:15 Order name: Labs collected and sent; Complete Time: 09:22 [facility] 12/10 08:15 Order name: O2 Per Protocol; Complete Time: 09:22 [facility] 12/10 08:15 Order name: O2 Sat Monitoring; Complete Time: 09:22 [facility] 12/10 10:42 Order name: CONS Physician Consult EDMS 12/10 11:56 Order name: MRI; Complete Time: 12:11 EDMS EC:57 Rate is 86 beats/min. Rhythm is irregularly irregular. QRS [place] is Normal. [place] interval sohail is normal. QRS interval is normal. QT interval is normal. No Q waves. T waves are Normal. No ST changes noted. Clinical impression: Atrial Fibrillation and No evidence of ischemia. Interpreted by me. Reviewed by me. Administered Medications: 10:28 Drug: NS 0.9% 500 ml Route: IV; Rate: bolus; Site: right antecubital; pierce 10:50 Drug: Magnesium Sulfate 1 grams Route: IVPB; Infused Over: 1 hrs; Site: right pierce antecubital; 10:50 Not Given (Patient Refused): Sotalol 80 mg PO once pierce 10:50 Not Given (Patient Refused): Lasix (furosemide) 20 mg IVP once; give over 2 minutes pierce Disposition Summary: 12/10/21 10:35 Hospitalization Ordered Hospitalization Status: Inpatient Admission sohail Provider: Jaxson Barlow cha Location: Telemetry/MedSurg (Inpatient)(12/10/21 10:35) sohail Condition: Fair(12/10/21 10:35) sohail Problem: new(12/10/21 10:35) sohail Symptoms: have improved(12/10/21 10:35) sohail Bed/Room Type: Standard sohail Room Assignment: 202(12/10/21 12:03) eb Diagnosis - Fall on same level, unspecified(12/10/21 10:35) sohail - Chronic atrial fibrillation(12/10/21 10:35) sohail - Weakness(12/10/21 10:35) sohail - Anemia, unspecified(12/10/21 10:35) sohail - Type 2 diabetes mellitus with hyperglycemia(12/10/21 10:35) sohail Forms: - Medication Reconciliation Form sohail - SBAR form sohail Signatures: Dispatcher [employer] EDRyan Livingston MD MD cha Botello, Elizabeth eb Au-Stager, Heather, RN RN pierce Corrections: (The following items were deleted from the chart) 10:33 10:06 Home sohail sohail 10:33 10:06 new sohail sohail 10:33 10:06 have improved sohail sohail 10:33 10:06 Stable sohail sohail 10:33 10:06 Chronic atrial fibrillation sohail sohail 10:33 10:06 Fall on same level, unspecified sohail sohail 10:33 10:06 Weakness sohail sohail 10:33 10:06 Generalized edema sohail sohail 10:33 10:07 Hypomagnesemia sohail sohail 10:33 10:08 Anemia, unspecified sohail sohail 10:33 10:08 Type 2 diabetes mellitus with hyperglycemia sohail sohail 12:03 10:35 sohail eb
--- NOTE | 2021-12-10 10:06 | ER ---
Nurse's Notes [facility] Name: Miles Chowdary Age: 85 yrs Sex: Male : 1935 Arrival Date: 12/10/2021 Time: 07:48 Bed 18 Private MD: Diagnosis: Fall on same level, unspecified;Chronic atrial fibrillation;Weakness;Anemia, unspecified;Type 2 diabetes mellitus with hyperglycemia Presentation: 12/10 07:48 Chief complaint: Patient states: pt has a unwitnessed fall hitting his back of head. pt pierce on blood thinner-Xarelto. Coronavirus screen: Vaccine status: Patient reports receiving the 2nd dose of the covid vaccine. Ebola Screen: Patient denies travel to an Ebola-affected area in the 21 days before illness onset. Initial Sepsis Screen: Does the patient meet any 2 criteria? HR > 90 bpm. Does the patient have a suspected source of infection? No. Patient's initial sepsis screen is negative. Risk Assessment: Do you want to hurt yourself or someone else? Patient reports no desire to harm self or others. Onset of symptoms was December 10, 2021. 07:48 Method Of Arrival: EMS: [facility] 07:48 Acuity: MILDRED 3 pierce Triage Assessment: 07:54 General: Appears in no apparent distress. Behavior is calm, cooperative. pierce Historical: - Allergies: 07:50 Farxiga; pierce - Home Meds: 07:50 Furosemide Oral [Active]; lisinopril Oral [Active]; Metformin Oral [Active]; Potassium pierce Chloride Oral [Active]; sotalol Oral [Active]; Xarelto Oral [Active]; - PMHx: 07:50 "Male breast CA"; Hypertension; pancreatic cancer; skin cancer; pierce - Immunization history:: Adult Immunizations up to date. - Social history:: Smoking status: Patient denies any tobacco usage or history of. Screenin:53 Abuse screen: Denies threats or abuse. Denies injuries from another. Nutritional pierce screening: No deficits noted. Tuberculosis screening: No symptoms or risk factors identified. Fall Risk Primary Survey: 07:55 NO uncontrolled hemorrhage observed. A: The client is awake and alert. The airway is pierce patent. The client is alert. Airway: patent. Breathing/Chest: Spontaneous respiratory effort, equal unlabored respirations, breath sounds clear bilaterally, regular pattern, symmetrical chest rise and fall. Respiratory effort: spontaneous, unlabored. Circulation: No external hemorrhage present. Regular and strong central pulse, skin warm/dry/normal color. Disability Client is alert. Exposure/Environment: A warming method has been applied: A warm blanket has been provided to the patient. Assessment: 07:53 Pain: Complains of pain in scalp. Neuro: No deficits noted. Level of Consciousness is pierce awake, alert, obeys commands, Oriented to person, place, time, situation. 13:24 Reassessment: pt took own home medications. pierce Vital Signs: 07:48 BP 156 / 96; Pulse 102; Resp 19; Temp 97.9(T); Pulse Ox 96% on R/A; Weight 90.72 kg; pierce Height 5 ft. 8 in. (172.72 cm); 07:48 Body Mass Index 30.41 (90.72 kg, 172.72 cm) pierce Anh Coma Score: 07:57 Eye Response: spontaneous(4). Verbal Response: oriented(5). Motor Response: obeys pierce commands(6). Total: 15. 09:59 Eye Response: spontaneous(4). Verbal Response: oriented(5). Motor Response: obeys sohail commands(6). Total: 15. Trauma Score (Adult): 07:57 Eye Response: spontaneous(1); Verbal Response: oriented(1); Motor Response: obeys pierce commands(2); Systolic BP: > 89 mm Hg(4); Respiratory Rate: 10 to 29 per min(4); [place] Score: 15; Trauma Score: 12 ED Course: 07:48 Patient arrived in ED. pierce 07:50 Triage completed. pierce 07:53 Patient has correct armband on for positive identification. Bed in low position. pierce 07:53 No provider procedures requiring assistance completed. Maintain EMS IV. Gauge \\T\\ site: pierce 20g RAC. 07:54 Ryan Guaman MD is Attending Physician[facility] 07:54 Arm band placed on. pierce 07:57 Patient maintains SpO2 saturation greater than 95% on room air. pierce 08:01 Zenaida Crawley, RN is Primary Nurse. pierce 08:47 CT Traumagram (Head C Spine CAP wo con) In Process Unspecified. EDMS 09:04 XRAY Chest (1 view) In Process Unspecified. EDMS 09:05 US Extremity Venous W Compression Bert In Process Unspecified. EDMS 09:21 SARS-COV-2 RT PCR (Document "Date of Onset" if Symptomatic) Sent. pierce 10:05 Melva Barlow MD is Referral Physician. sohail 10:34 Jaxson Barlow MD is Hospitalizing Provider. sohail Administered Medications: 10:28 Drug: NS 0.9% 500 ml Route: IV; Rate: bolus; Site: right antecubital; pierce 10:50 Drug: Magnesium Sulfate 1 grams Route: IVPB; Infused Over: 1 hrs; Site: right pierce antecubital; 10:50 Not Given (Patient Refused): Sotalol 80 mg PO once pierce 10:50 Not Given (Patient Refused): Lasix (furosemide) 20 mg IVP once; give over 2 minutes pierce Medication: 07:53 VIS not applicable for this client. pierce Intake: 07:57 PO: 0ml; Total: 0ml. pierce Outcome: 10:06 Discharge ordered by . sohail 10:35 Decision to Hospitalize by Provider. sohail 13:44 Patient left the ED. iw Signatures: Dispatcher [employer] Ryan Matthews MD MD cha Williams, Irene, RN RN Sophy-StagerZenaida RN RN pierce
[2021-12-10] MEDS ORDERED: NA CHLORIDE 0.9% 500 ML ONE (10:11)
[2021-12-10] MEDS ORDERED: Magnesium Sulfate 2gm IVPB 2 G/50 ML BAG IV ONE (10:49)
--- NOTE | 2021-12-10 11:55 | RAD REPORT ---
EXAM DESCRIPTION: MRI - Brain Wo Cont - 12/10/2021 11:48 am CLINICAL HISTORY: Loss of consciousness COMPARISON: No comparisons TECHNIQUE: Sagittal T1-weighted images were obtained along with PD/heavily T2-weighted and T2-FLAIR images. Axial DWI and ADC mapping sequences were also obtained along with coronal heavily T2-weighted images were obtained. FINDINGS: No intracranial hemorrhage, mass or acute infarction. There is no edema or shift of midlin e structures. No extra-axial fluid collections. Signal voids are seen as a normal finding in the chris r intracranial vessels. Mild to moderate chronic small vessel ischemic changes. Cerebral atrophy. Left maxillary sinus opacification which is likely chronic. Trace mastoid fluid. IMPRESSION: No acute intracranial abnormality. Specifically, no evidence of acute infarct. Mild to m oderate chronic small vessel ischemic changes.
[2021-12-10] MEDS ORDERED: MORPHINE 2 MG/ML SYR IV PRN (14:09)
[2021-12-10] MEDS ORDERED: ONDANSETRON 4 MG/2 ML VIAL IV PRN (14:09)
[2021-12-10] MEDS ORDERED: IPRATROPIUM BROM 0.5MG/2.5ML NEB PRN ×2 (14:09→15:00)
[2021-12-10] MEDS ORDERED: ALBUTEROL 2.5 MG/3 ML NEB SOL NEB PRN ×2 (14:09→15:00)
[2021-12-10] MEDS ORDERED: ACETAMINOPHEN 325 MG TABLET PO PRN (14:09)
[2021-12-10 15:02] VITALS: BMI 30.4
[2021-12-10] MEDS: SOTALOL HCL 80 MG TAB PO SCH (16:17)
[2021-12-10] MEDS: FUROSEMIDE 20 MG/ 2ML VIAL IV SCH (16:17)
[2021-12-10] MEDS ORDERED: RIVAROXABAN 20 MG TABLET PO SCH (17:00)
[2021-12-10 20:26] VITALS: O2SAT 93
[2021-12-10] MEDS: MAGNESIUM OXIDE 400 MG TAB PO SCH (21:00)
[2021-12-10] MEDS: FAMOTIDINE 20 MG/2 ML VIAL IV SCH (21:00)
[2021-12-11] MEDS: SOTALOL HCL 80 MG TAB PO SCH ×2 (01:41→08:03)
[2021-12-11 05:42] LABS: Absolute Lymphocytes (CBC) 0.9 K/uL (0.7-4.9); Hematocrit 31.1 % (39.6-49.0); Lymphocytes % 12.2 % (15.3-44.8); MCV 78.1 fL (80-100); MPV 9.4 fL (7.6-11.3); RBC Red Blood Cell Count 3.99 M/uL (4.33-5.43)
[2021-12-11 05:58] LABS: Potassium 3.6 mmol/L (3.5-5.1)
[2021-12-11] MEDS: MAGNESIUM OXIDE 400 MG TAB PO SCH (08:02)
[2021-12-11] MEDS: FUROSEMIDE 20 MG/ 2ML VIAL IV SCH (08:03)
[2021-12-11] MEDS: FAMOTIDINE 20 MG/2 ML VIAL IV SCH (08:03)
[2021-12-11] MEDS ORDERED: METFORMIN HCL 500 MG TAB PO ONE (08:34)
[2021-12-11] MEDS ORDERED: lisinopriL 20 MG TAB PO SCH (09:00)
[2021-12-11] MEDS ORDERED: FUROSEMIDE 40 MG TABLET PO SCH (09:00)
[2021-12-11 09:09] VITALS: BP 149/90; TEMP 97.5
--- NOTE | 2021-12-11 09:52 | EKG ---
Test Date: 2021-12-10 Test Time: 09:35:29 [place]: [id number] MEASUREMENT RESULTS: Intervals: Rate: 86 [place]: QRSD: 84 QT: 406 QTc: 485 [place]: P: CA: QRS: 13 T: -31 INTERPRETIVE STATEMENTS: Accelerated Junctional rhythm with premature supraventricular complexes Low voltage QRS Cannot rule out Anterior infarct, age undetermined Abnormal ECG Compared to ECG 12/10/2021 09:34:17 Atrial premature complex(es) now present Accelerated junctional rhythm now present Atrial fibrillation no longer present Ventricular premature complex(es) no longer present Myocardial infarct finding still present Electronically Signed On 12-11-21 09:48:48 CDT by Jaime Matt
--- NOTE | 2021-12-11 09:52 | EKG ---
Test Date: 2021-12-10 Test Time: 09:34:17 Afternoon Nanny: M000 MEASUREMENT RESULTS: Intervals: Rate: 91 [place]: QRSD: 90 QT: 532 QTc: 654 [place]: P: NH: QRS: 36 T: 78 INTERPRETIVE STATEMENTS: Atrial fibrillation with premature ventricular or aberrantly conducted complexes Low voltage QRS Cannot rule out Anterior infarct, age undetermined Abnormal ECG Compared to ECG 08/19/2021 13:18:50 Low QRS voltage now present Myocardial infarct finding still present Electronically Signed On 12-11-21 09:48:49 CDT by Jaime Matt
--- NOTE | 2021-12-11 14:00 | HP ---
Date of Admission: 12/10/2021 Chief Complaint: Fall. History Of Present Illness: This is an 85-year-old very pleasant male patient who lives at home, was feeling fine when he woke up, he felt really well and he got up to subsequently go to the kitchen to get his coffee ready and while he was standing he says all of a sudden his legs felt like very weak and he was not able to maintain his balance and fell backwards because of weak feeling in his legs. He did end up hitting the back of his head. There was no loss of consciousness. He was brought into emergency room subsequently. There was no open wound anywhere. No bleeding. After he was evaluated, he was admitted to the hospital. The patient denies any vomiting, diarrhea. No chest pain. No shortness of breath. No fever, chills. No recent febrile illness. Allergies: NO KNOWN ALLERGIES. Medications: Ferrous gluconate 1 tablet by mouth daily, furosemide 40 mg by mouth daily, sotalol 80 mg by mouth 3 times a day, Xarelto 20 mg by mouth daily, metformin 1000 mg by mouth 2 times a day, lisinopril 40 mg by mouth daily, Tresiba takes 25 units subcutaneous injection daily. According to my office record, I wanted him to take furosemide 40 mg 2 times a day, but he only takes it once a day. Review of Systems: Musculoskeletal: As mentioned above. ACUTE CARE REGISTERED NURSE: As mentioned above. Cardiovascular: Leg edema. All other systems reviewed and negative. Past Medical History: Type 2 diabetes mellitus, chronic systolic congestive heart failure, chronic atrial fibrillation, hypertension, cancer of pancreas, left breast cancer, anemia, osteopenia. Past Surgical History: Left-sided mastectomy in 2004 for breast cancer, appendectomy, Whipple's procedure in 1994 for pancreatic cancer. Family History: Father , had COPD. Brother , had stroke and myocardial infarction. Sister is alive and well. Social History: Prior history of smoking, not at present time. Use of alcohol negative. Immunization History: The patient's COVID-19 vaccine first dose September 03, 2020, second dose September 29, 2020, third dose April 29, 2021. Physical Examination: Vital Signs: Height 5 feet 8 inches, weight 200 pounds, temperature 97.9, pulse 102, respiratory rate 19, blood pressure 156/96, oxygen saturation 96%. General: Awake, alert, oriented, not in distress. HEENT: Head atraumatic, normocephalic. Conjunctivae nonerythematous. Sclerae white. Mouth, no thrush or edema noted. Ears/Nose, no mass, lesion, discharge noted. Neck: Supple. No JVD, lymph nodes, bruit, thyromegaly noted. Lungs: Bilateral good equal air entry. Clear to auscultation. No rhonchi. No rales. Heart: Normal heart sounds, no murmur or gallop. Abdomen: Soft, bowel sounds normal. No guarding, rigidity, tenderness, mass, hepatosplenomegaly, distention, or bruit noted. Extremities: Bilateral grade 1 pedal edema. No calf tenderness. Skin: No rash, ulcer, cellulitis. Lymphatics: No lymph node enlargement in neck, supraclavicular, infraclavicular region. Neuro: No focal neurological deficit. Chest: Unremarkable. External Genitalia: Deferred. Rectal: Deferred. Laboratory Data: White count 10.4, hemoglobin 10.1, platelets 230. Sodium 139, potassium 4.1, chloride 109, bicarb 25, BUN 13, creatinine 0.87, glucose 232, magnesium 1.7. Liver function tests unremarkable. ProBNP 3557. Troponin 13.40. COVID-19 test negative. Chest x-ray, no acute cardiopulmonary changes. Venous Doppler of lower extremity was negative for DVT. CAT scan of the head, C-spine, chest, abdomen, pelvis per trauma protocol showed no acute intracranial abnormality. No acute fracture or traumatic injury to cervical spine. No evidence of significant trauma to chest, abdomen, pelvis. MRI of brain shows no evidence of any stroke. Impression: 1. Head injury. 2. Generalized weakness. 3. Debility. 4. Chronic systolic heart failure. 5. Chronic atrial fibrillation. 6. Type 2 diabetes mellitus. 7. Hypertension. 8. Anemia, chronic. Plan: We will admit the patient to hospital for further evaluation and management of this problem. There is no evidence of any stroke or any other acute traumatic injury. We will get orthostatic vital signs on him to see whether he has any drop in his blood pressure while standing compared to sitting and supine position. Continue home medications per order. We will monitor the patient overnight and I will re-evaluate him tomorrow morning. I will see him tomorrow for followup. Details and plan of treatment discussed with the patient. The patient has a walker and cane at home and he uses it all the time. SARITA/BRADY Voice ID: [id number]
[2021-12-11] MEDS ORDERED: METFORMIN HCL 500 MG TAB PO SCH (17:00)
--- NOTE | 2021-12-12 03:22 | DS ---
Date of Discharge: 12/11/2021 Disposition: Discharged to go home. Physical Examination: HEENT: Unremarkable. Lungs: Clear to auscultation. Heart: Sounds normal. Abdomen: Soft. Bowel sounds normal. No guarding, rigidity, tenderness, or distention. Extremities: Bilateral leg edema grade 1, unchanged from yesterday. Discharge Medications And Instructions: Continue all prior home medication except following changes: 1.Furosemide 40 mg, take 1 tablet by mouth 2 times a day. 2.Follow up at office next week and call office for appointment. Laboratory Data: Today, sodium 138, potassium 3.6, chloride 103, bicarb 25, BUN 13, creatinine 0.80, glucose 261. White count 7.7, hemoglobin 9.9, platelets 234. Hospital Course: This is an 85-year-old pleasant male patient who fell down at home yesterday, was b rought into emergency room, and after he was evaluated, he was admitted to the hospital. The patient did not have any traumatic injury. He did fall down at home, fell backwards, and ended up having he ad injury to the back of his head. There was no open wound. No loss of consciousness. His CAT scan of the head was negative for any intracranial changes. MRI of the brain was negative for any acute stroke. After he was evaluated, he was admitted to the hospital. Overnight, his condition has remai marian stable. This morning when I saw him, he was feeling fine. Denied any new complaints and feels l blanquita he is back to his normal usual self. I did talk to him regarding doing outpatient physical thera py or home health and home physical therapy and he is not interested in either one of these options. I did advise him to get up and walk in his house every 2 hours or so for about 5-10 minutes and also taught him how to do chair rise exercise 10 times in the morning, afternoon, and evening. I have mason ggested him to increase his dose of furosemide 40 mg and take 1 tablet 2 times a day, and I will see him next week. Final Diagnoses: 1.Head injury. 2.Generalized weakness. 3.Debility. 4.Chronic systolic heart failure. 5.Hypertension. 6.Type 2 diabetes mellitus. 7.Anemia, chronic. 8.Left breast cancer. 9.Pancreatic cancer. 10.Osteopenia. 11.Hypomagnesemia. SARITA/MODL Voice ID: [id number] Report ID: [id number]
--- NOTE | 2021-12-13 00:09 | CON ---
Date of Consultation: 12/11/2021 The patient admitted on 12/10/[address] Barlow's service. I saw him on 12/11/2021. Reason For Consultation: Fall and weakness. History Of Present Illness: Mr. Chowdary is an 85-year-old male. He is very well known to me from previ ous office visits and admissions. He has a history of hypertension, diabetes, and atrial fibrillatio n. He has had multiple cancers before including breast cancer and skin cancer as well as prostate ca ncer. He comes in basically with a fall episode and weak spell. Denied any chest pain, nausea, or v omiting. Has had some diaphoresis. Denied any palpitation or syncope. Denied any fever, chills, or cough. Past Medical History: As stated above. Allergies: HE IS ALLERGIC TO DAPAGLIFLOZIN. Medications: At home include sotalol, Xarelto, Lasix, lisinopril, and metformin. Review of Systems: Negative. Social History: Negative. Family History: Noncontributory. Physical Examination: Vital Signs: His blood pressure was 170/95. He was in atrial fibrillation at a rate of 86. HEENT: Negative. Neck: Supple. No bruit. Chest: Clear. Cardiac: Revealed atrial fibrillation. No murmurs, gallops, or rubs. Abdomen: Benign. Extremities: Revealed no clubbing, cyanosis, or edema. Diagnostic Data: Showed atrial fibrillation of 86, hemoglobin of 10, and glucose was 232. BNP was 4 730. Impression And Plan: Episode of weakness and falling before he has taken his medications. Neverthel ess, I still think this is more likely an orthostatic hypotension episode. I would hydrate him. Con tinue his medications otherwise at home. I will make an arrangement for him to have a carotid echoca rdiogram and an event monitor in the near future. His other problems include paroxysmal atrial fibri llation, hypertension, and diabetes and he is on appropriate medicines including sotalol, Xarelto, li sinopril, and metformin. He has some mild anemia for which he takes iron and he had some mild diasto lic congestive heart failure for which he takes Lasix. I will discuss the case further with Dr. Barlow . LOUIE/BRADY Voice ID: [id number] Report ID: [id number]
== END 2021-12-11 11:17 | disposition home or self-care (01) ==
LOC: ER 07:47 → ERHOLD 10:38 → INTOOBSV 10:38 → 2ND 13:33
PROVIDERS: ADMIT Internal Medicine; ATTEND Internal Medicine
DX: R53.1 Weakness (principal); S09.90XA Unspecified injury of head, initial encounter; W18.30XA Fall on same level, unspecified, initial encounter; Y92.009 Unspecified place in unspecified non-institutional (private) residence as the place of occurrence of the external cause; I11.0 Hypertensive heart disease with heart failure; I50.22 Chronic systolic (congestive) heart failure; I48.20 Chronic atrial fibrillation, unspecified; E11.65 Type 2 diabetes mellitus with hyperglycemia; D64.9 Anemia, unspecified; E83.42 Hypomagnesemia; R53.81 Other malaise; M85.80 Other specified disorders of bone density and structure, unspecified site; Z20.822 Contact with and (suspected) exposure to COVID-19; Z79.01 Long term (current) use of anticoagulants; Z79.84 Long term (current) use of oral hypoglycemic drugs; Z79.4 Long term (current) use of insulin; Z79.899 Other long term (current) drug therapy; Z88.8 Allergy status to other drugs, medicaments and biological substances; Z85.3 Personal history of malignant neoplasm of breast; Z85.828 Personal history of other malignant neoplasm of skin; Z85.07 Personal history of malignant neoplasm of pancreas; Z85.46 Personal history of malignant neoplasm of prostate; Z90.12 Acquired absence of left breast and nipple; Z82.49 Family history of ischemic heart disease and other diseases of the circulatory system; Z82.3 Family history of stroke; Z83.6 Family history of other diseases of the respiratory system
CPT/HCPCS: 93005 ×2; 85025 ×2; 80048 ×2; 36415; 83735; 85610; 80076; 84484; 83880 ×2; 70450; 71250; 72125; 71045; 93970; 70551; 96374; 99284; U0003; J1940 ×2; J3475; J7040; J3490 ×2; G0378

== ENCOUNTER 2022-01-11 04:20 | Emergency (ER) | payer OTHER ==
[2022-01-11 05:08] LABS: Urine Blood 3+ (Negative); Urine Glucose Trace (Negative); Urine Protein 3+ (Negative); Urine pH 6.5 (5.0-7.0)
[2022-01-11 05:16] LABS: Hematocrit 31.8 % (39.6-49.0); MCV 79.5 fL (80-100); MPV 10.2 fL (7.6-11.3); RBC Red Blood Cell Count 3.99 M/uL (4.33-5.43)
[2022-01-11 05:22] LABS: Protime INR 1.6
[2022-01-11 05:29] LABS: Potassium 4.7 mmol/L (3.5-5.1)
[2022-01-11 06:00] LABS: Urine RBC >50 /HPF (None Seen)
[2022-01-11 06:01] LABS: Urine Bacteria <20 /HPF (<20)
--- NOTE | 2022-01-11 06:54 | ER ---
Nurse's Notes [facility] Name: Miles Chowdary Age: 86 yrs Sex: Male : 1935 Arrival Date: 01/11/2022 Time: 04:29 Bed 18 Private MD: Diagnosis: Gross hematuria;Acute cystitis with hematuria;UTI/ Urinary tract infection, site not specified Presentation: 01/11 04:51 Chief complaint: Patient states: Blood in urine from catheter since 1 day ago; Denies lp1 any pain, reports next appt with urologist is on 01/21/22, collier catheter in place x 2 weeks. Coronavirus screen: At this time, the client does not indicate any symptoms associated with coronavirus-19. Ebola Screen: No symptoms or risks identified at this time. Initial Sepsis Screen: Does the patient meet any 2 criteria? No. Patient's initial sepsis screen is negative. Does the patient have a suspected source of infection? No. Patient's initial sepsis screen is negative. Risk Assessment: Do you want to hurt yourself or someone else? Patient reports no desire to harm self or others. Onset of symptoms was January 11, 2022. 04:51 Method Of Arrival: Ambulatory lp1 04:51 Acuity: MILDRED 3 lp1 Historical: - Allergies: 04:53 Farxiga; lp1 - Home Meds: 04:53 furosemide 40 mg oral tab once daily [Active]; lisinopril 40 mg oral tab once daily lp1 [Active]; metformin 1,000 mg oral tab 2 times per day [Active]; sotalol 80 mg oral tab 3 times per day [Active]; Xarelto 20 mg oral tab once daily [Active]; - PMHx: 04:53 "Male breast CA"; Hypertension; pancreatic cancer; skin cancer; lp1 - PSHx: 04:53 L Mastectomy; lp1 - Immunization history:: Adult Immunizations up to date. - Social history:: Smoking status: Patient/guardian denies using tobacco, the patient reports quitting approximately 30 years ago. Screenin:15 Abuse screen: Denies threats or abuse. Nutritional screening: No deficits noted. ll3 Tuberculosis screening: No symptoms or risk factors identified. Fall Risk No fall in past 12 months (0 pts). No secondary diagnosis (0 pts). IV access (20 points). Ambulatory Aid- Crutches/Cane/Walker (15 pts). Gait- Weak (10 pts.). Mental Status- Oriented to own ability (0 pts). Total Hanna Fall Scale indicates High Risk Score (45 or more points). Fall prevention measures have been instituted. Side Rails Up X 2 Placed Close to Nursing Station Frequent Obs/Assessments Occuring Family Present and informed to notify staff if the need to leave the bedside As available patient and family educated on Fall Prevention Program and Strategies. Assessment: 05:15 General: Appears comfortable, Behavior is calm, cooperative. Pain: Denies pain. Neuro: ll3 Level of Consciousness is awake, alert, obeys commands, Oriented to person, place, time, situation. Respiratory: Respiratory effort is even, unlabored, Respiratory pattern is regular, symmetrical. : Collier in place clamped Urine is blood tinged, Reports Blood in urine. : Denies burning with urination, pain. Derm: Bilateral lower legs weeping clear fluid. 05:52 Reassessment: No changes from previously documented assessment. Patient and/or family ll3 updated on plan of care and expected duration. Pain level reassessed. Patient is alert, oriented x 3, equal unlabored respirations, skin warm/dry/pink. Vital Signs: 04:51 BP 128 / 67; Pulse 64; Resp 18; Temp 97.9(TE); Pulse Ox 100% on R/A; Weight 81.65 kg lp1 (R); Height 5 ft. 8 in. (172.72 cm); Pain 0/10; 05:52 BP 106 / 72; Pulse 89; Resp 17; Pulse Ox 100% on R/A; ll3 04:51 Body Mass Index 27.37 (81.65 kg, 172.72 cm) lp1 ED Course: 04:29 Patient arrived in ED. ja2 04:33 Good Hernandez MD is Attending Physician. kdr 04:51 Arm band placed on. lp1 04:53 Triage completed. lp1 04:54 Patient has correct armband on for positive identification. lp1 05:14 Santana Danielle, FARTUN is Primary Nurse. ll3 05:14 Initial lab(s) drawn, by me, sent to lab. Urine collected: Collier catheter specimen, ll3 blood tinged. Inserted saline lock: 22 gauge in right antecubital area, using aseptic technique. Blood collected. 07:14 Assisted with urinal. bm7 07:25 No provider procedures requiring assistance completed. IV discontinued, intact, bm7 bleeding controlled, No redness/swelling at site. Pressure dressing applied. Administered Medications: 07:06 Drug: Bactrim (trimethoprim-sulfamethoxazole) (160 mg-800 mg (DS) 1 tablet Route: PO; ke1 07:27 Follow up: Response: No adverse reaction bm7 07:06 Drug: Rocephin - (cefTRIAXone) 1 grams Route: IVPB; Infused Over: 30 mins; Site: right ke1 antecubital; 07:26 Follow up: IV Status: Completed infusion bm7 Medication: 04:55 VIS not applicable for this client. lp1 Output: 07:16 Urine: 900ml (Voided); Total: 900ml. bm7 Outcome: 06:54 Discharge ordered by . kdr 07:25 Discharged to home ambulatory, with family. bm7 07:25 Condition: good 07:25 Discharge instructions given to patient, family, Instructed on discharge instructions, medication usage, Demonstrated understanding of instructions, follow-up care, medications, Prescriptions given X 1. 07:27 Patient left the ED. bm7 Signatures: Good Hernandez MD MD kdr Leticia Olmedo RN RN lp1 Diana Valera, RN RN bm7 Luz Marina Upton Lyn[place], FARTUN RN ll3 Jono Alva RN RN ke1 Corrections: (The following items were deleted from the chart) 04:54 04:53 PSHx: None; lp1 lp1
--- NOTE | 2022-01-11 06:54 | EDPHYS ---
Physician Documentation [facility] Name: Miles Chowdary Age: 86 yrs Sex: Male : 1935 Arrival Date: 01/11/2022 Time: 04:29 Bed 18 Private MD: ED Physician Good Hernandez HPI: 01/11 05:31 This 86 yrs old Male presents to ER via Ambulatory with complaints of Blood In Catheter.kdr 05:31 Patient presents with hematuria for 1 day. He denies any pain or fever. She had his kdr current Collier on for approximately 2 weeks drainage around the has not had this before. Patient is on Xarelto. Onset: The symptoms/episode began/occurred gradually, 1 day(s) ago. Severity of symptoms: At their worst the symptoms were mild in the emergency department the symptoms are unchanged. The patient has not experienced similar symptoms in the past. The patient has been recently seen by a physician: the patient's primary care provider. 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 - Social history:: Smoking status: Patient/guardian denies using tobacco, the patient reports quitting approximately 30 years ago. ROS: 05:31 Constitutional: Negative for fever, chills, and weight loss, Eyes: Negative for injury, kdr pain, redness, and discharge, ENT: Negative for injury, pain, and discharge, Neck: Negative for injury, pain, and swelling, Cardiovascular: Negative for chest pain, palpitations, and edema, Respiratory: Negative for shortness of breath, cough, wheezing, and pleuritic chest pain, Abdomen/GI: Negative for abdominal pain, nausea, vomiting, diarrhea, and constipation, Back: Negative for injury and pain, MS/Extremity: Negative for injury and deformity, Skin: Negative for injury, rash, and discoloration, Neuro: Negative for headache, weakness, numbness, tingling, and seizure activity. Psych: Negative for depression, anxiety, suicide ideation, homicidal ideation, and hallucinations, Allergy/Immunology: Negative for hives, rash, and allergies, Endocrine: Negative for neck swelling, polydipsia, polyuria, polyphagia, and marked weight changes, Hematologic/Lymphatic: Negative for swollen nodes, abnormal bleeding, and unusual bruising. 05:31 : Positive for urinary symptoms, hematuria, Negative for pelvic pain, burning with urination, difficulty urinating, bladder incontinence, foul smelling urine, penile discharge, penile pain, testicular pain Exam: 05:31 Constitutional: This is a well developed, well nourished patient who is awake, alert, kdr and in no acute distress. Head/Face: Normocephalic, atraumatic. Eyes: Pupils equal round and reactive to light, extra-ocular motions intact. Lids and lashes normal. Conjunctiva and sclera are non-icteric and not injected. Cornea within normal limits. Periorbital areas with no swelling, redness, or edema. Neck: Trachea midline, no thyromegaly or masses palpated, and no cervical lymphadenopathy. Supple, full range of motion without nuchal rigidity, or vertebral point tenderness. No Meningismus. 05:31 : CVA tenderness, is absent, Male external genitalia: normal, no discharge, no erythema, no injury, no swelling, no tenderness, Bladder: is normal, a collier is noted, clamped, 3-way catheter is employed, urine is blood tinged, noted to have penny blood. Vital Signs: 04:51 BP 128 / 67; Pulse 64; Resp 18; Temp 97.9(TE); Pulse Ox 100% on R/A; Weight 81.65 kg lp1 (R); Height 5 ft. 8 in. (172.72 cm); Pain 0/10; 05:52 BP 106 / 72; Pulse 89; Resp 17; Pulse Ox 100% on R/A; ll3 04:51 Body Mass Index 27.37 (81.65 kg, 172.72 cm) lp1 MDM: 05:31 Data reviewed: vital signs, nurses notes, lab test result(s), radiologic studies. kdr Counseling: I had a detailed discussion with the patient and/or guardian regarding: the historical points, exam findings, and any diagnostic results supporting the discharge/admit diagnosis, lab results, radiology results, the need for outpatient follow up. 06:54 Patient medically screened. kdr 01/11 04:36 Order name: Urine Culture kdr 01/11 04:39 Order name: CBC with Diff kdr 01/11 04:39 Order name: Chem 7; Complete Time: 06:51 kdr 01/11 04:39 Order name: PT-INR; Complete Time: 06:51 kdr 01/11 05:04 Order name: Urine Microscopic Only; Complete Time: 06:51 lp1 01/11 05:08 Order name: Urine Dipstick-Ancillary; Complete Time: 06:51 EDMS 01/11 04:36 Order name: Urine Dipstick-Ancillary (obtain specimen); Complete Time: 05:14 kdr 01/11 05:22 Order name: Manual Differential EDMS Administered Medications: 07:06 Drug: Bactrim (trimethoprim-sulfamethoxazole) (160 mg-800 mg (DS) 1 tablet Route: PO; ke1 07:27 Follow up: Response: No adverse reaction bm7 07:06 Drug: Rocephin - (cefTRIAXone) 1 grams Route: IVPB; Infused Over: 30 mins; Site: right ke1 antecubital; 07:26 Follow up: IV Status: Completed infusion bm7 Disposition Summary: 01/11/22 06:54 Discharge Ordered Location: Home kdr Problem: new kdr Symptoms: have improved kdr Condition: Stable kdr Diagnosis - Gross hematuria kdr - Acute cystitis with hematuria kdr - UTI/ Urinary tract infection, site not specified kdr Followup: kdr - With: Private Physician - When: 2 - 3 days - Reason: If symptoms return, Further diagnostic work-up, Recheck today's complaints, Continuance of care, Re-evaluation by your physician Discharge Instructions: - Discharge Summary Sheet kdr - Hematuria, Adult kdr - Urinary Tract Infection, Adult, [id number] kdr Forms: - Medication Reconciliation Form kdr - Thank You Letter kdr - Antibiotic Education kdr Prescriptions: - Bactrim DS 800-160 mg Oral Tablet - take 1 tablet by ORAL route every 12 hours for 10 days; 20 tablet; Refills: 0, kdr Product Selection Permitted Signatures: Dispatcher [employer] EDMS Good Hernandez MD MD kdr Leticia Olmedo RN RN lp1 Jono Alva RN RN ke1 Diana Valera RN bm7 Corrections: (The following items were deleted from the chart) 04:54 04:53 PSHx: None; lp1 lp1
[2022-01-11 08:39] VITALS: TEMP 97.9; O2SAT 100
[2022-01-11 08:41] VITALS: BP 106/72
[2022-01-11 09:33] LABS: Anisocytosis 1+; Blood Morphology Comment NOTED (NOT SEEN); Platelet Estimate ADEQ
== END 2022-01-11 07:27 | disposition home or self-care (01) ==
LOC: ER 04:20
DX: N30.01 Acute cystitis with hematuria (principal); I10 Essential (primary) hypertension; Z79.01 Long term (current) use of anticoagulants; Z85.3 Personal history of malignant neoplasm of breast; Z90.12 Acquired absence of left breast and nipple; Z85.07 Personal history of malignant neoplasm of pancreas; Z88.8 Allergy status to other drugs, medicaments and biological substances
CPT/HCPCS: 36415; 80048; 81003; 81015; 85025; 85610; 87077; 87086; 87088; 87186; 96365; 99284

== ENCOUNTER 2022-01-26 16:29 | Emergency (ER) | payer OTHER ==
--- OUTSIDE RECORDS SUMMARY | 2022-01-26 16:33 | XMS REPORT | Continuity of Care Document ---
:1935 Author Organization [facility] t Address [address] [place] [address] [address]. [address] [place] [address] Care Team Providers Name Role Phone Deniz Rust MD Attending Clinician DENIZ RUST Attending Clinician Unavailable Doctor Unassigned, [place] Attending Clinician Unavailable Jose C [facility] Main Attending Clinician Unavailable Eva Mercer Attending Clinician EVA RICE Attending Clinician Unavailable Payers Payer Name Policy Type Policy Number Effective Date Expiration Date S azeem [employer]ET[employer] MEDICARE ADV [id number] 2020 00:00:00 Problems Condition Condition Condition Status Onset Resolution Last Treating Co mments Source Name Details Category Date Date Treatment Clinician Date No known No known Disease Unive rs active active ity of problems problems [facility] Allergies, Adverse Reactions, Alerts Allergy Allergy Status Severity Reaction(s) Onset Inactive Treating Comm ents Source Name Type Date Date Clinician NO KNOWN Drug Active Univers ALLERGIE Class ity of S [facility] Social History Social Habit Start Date Stop Date Quantity Comments Source Exposure to Not sure [facility] SARS-CoV-2 [facility] (event) [place] Tobacco use and 2020-10-27 2020-10-27 Never used Universit y of exposure 00:00:00 00:00:00 [facility] Alcohol intake 2020-10-27 2020-10-27 Lifetime University of 00:00:00 00:00:[address] [facility] (finding) [place] Sex Ass[birth year] At [birth year] Universit y of 00:00:00 00:00:00 [facility] Smoking Status Start Date Stop Date Source Never smoker [facility] Medications Ordered Filled Start Stop Current Ordering [...] EVERY Branch EIGHT HOURS NEEDED. traMADoL 50 0 Yes TAKE ONE Un guzman mg tablet 4-03 (1) ity of 00:00: TABLET(S) [place] 00 BY MOUTH Medical EVERY Branch EIGHT HOURS NEEDED. traMADoL 50 0 Yes TAKE ONE Un guzman mg tablet 4-03 (1) ity of 00:00: TABLET(S) [place] 00 BY MOUTH Medical EVERY Branch EIGHT HOURS NEEDED. traMADoL 50 0 Yes TAKE ONE Un guzman mg tablet 4-03 (1) ity of 00:00: TABLET(S) [place] 00 BY MOUTH Medical EVERY Branch EIGHT HOURS NEEDED. traMADoL 50 0 Yes TAKE ONE Un guzman mg tablet 4-03 (1) ity of 00:00: TABLET(S) [place] 00 BY MOUTH Medical EVERY Branch EIGHT HOURS NEEDED. furosemide 2020-0 Yes 40mg Take 40 mg U nivers 40 mg 3-31 by mouth ity of tablet 00:00: daily. [address] furosemide 2020-0 Yes 40mg Take 40 mg U nivers 40 mg 3-31 by mouth ity of tablet 00:00: daily. [address] furosemide 2021-0 Yes 40mg Take 40 mg U nivers 40 mg 3-31 by mouth ity of tablet 00:00: daily. [address] furosemide 2021-0 Yes 40mg Take 40 mg U nivers 40 mg 3-31 by mouth ity of tablet 00:00: daily. [address] furosemide 2021-0 Yes 40mg Take 40 mg U nivers 40 mg 3-31 by mouth ity of tablet 00:00: daily. [address] furosemide 2021-0 Yes 40mg Take 40 mg U nivers 40 mg 3-31 by mouth ity of tablet 00:00: daily. [address] furosemide 2021-0 Yes 40mg Take 40 mg U nivers 40 mg 3-31 by mouth ity of tablet 00:00: daily. [address] furosemide 2021-0 Yes 40mg Take 40 mg U nivers 40 mg 3-31 by mouth ity of tablet 00:00: daily. [address] furosemide 2021-0 Yes 40mg Take 40 mg U nivers 40 mg 3-31 by mouth ity of tablet 00:00: daily. [address] furosemide 0 Yes 40mg Take 40 mg U nivers 40 mg 3-31 by mouth ity of tablet 00:00: daily. [place] [facility] furosemide 0 Yes 40mg Take 40 mg U nivers 40 mg 3-31 by mouth ity of tablet 00:00: daily. [place] [facility] furosemide 0 Yes 40mg Take 40 mg U nivers 40 mg 3-31 by mouth ity of tablet 00:00: daily. [place] [facility] furosemide 0 Yes 40mg Take 40 mg U nivers 40 mg 3-31 by mouth ity of tablet 00:00: daily. [address] furosemide 0 Yes 40mg Take 40 mg U nivers 40 mg 3-31 by mouth ity of tablet 00:00: daily. [address] furosemide Yes 40mg Take 40 mg U nivers 40 mg 3-31 by mouth ity of tablet 00:00: daily. [address] furosemide 0 Yes 40mg Take 40 mg U nivers 40 mg 3-31 by mouth ity of tablet 00:00: daily. [address] XARELTO 20 Yes TAKE ONE Uni vers mg tablet 3-16 (1) ity of 00:00: TABLET(S) [place] 00 BY MOUTH Medical ONCE A DAY Branch WITH EVENING MEAL. XARELTO Yes TAKE ONE Uni vers mg tablet 3-16 (1) ity of 00:00: TABLET(S) [place] 00 BY MOUTH Medical ONCE A DAY Branch WITH EVENING MEAL. XARELTO Yes TAKE ONE Uni vers mg tablet [...] by ity of tablet 00:00: mouth 2 00 (two) Medical times Branch daily. TRESIBA 0 Yes INJECT Univers FLEXTOUCH 2-25 THIRTY ity of U-200 200 00:00: (30) UNITS [place] unit/mL (3 00 UNDER THE Medi derek mL) InPn SKIN ONCE Branch DAILY IN THE EVENING. metFORMIN 2020-0 Yes 1000mg Take 1,000 Univers 1,000 mg 2-25 mg by ity of tablet 00:00: mouth 2 (two) Medical times Branch daily. TRESIBA 0 Yes INJECT Univers FLEXTOUCH 2-25 THIRTY ity of U-200 200 00:00: (30) UNITS [place] unit/mL (3 00 UNDER THE Medi derek mL) InPn SKIN ONCE Branch DAILY IN THE EVENING. metFORMIN 2020-0 Yes 1000mg Take 1,000 Univers 1,000 mg 2-25 mg by ity of tablet 00:00: mouth 2 (two) Medical times Branch daily. TRESIBA 2020-0 Yes INJECT Univers FLEXTOUCH 2-25 THIRTY ity of U-200 200 00:00: (30) UNITS [place] unit/mL (3 00 UNDER THE Medi [place] mL) InPn SKIN ONCE Branch DAILY IN THE EVENING. metFORMIN 1-0 Yes 1000mg Take 1,000 Univers 1,000 mg [...] by ity of tablet 00:00: mouth 2 00 (two) Medical times Branch daily. TRESIBA 2020-0 [...] ONCE Branch DAILY IN THE EVENING. metFORMIN 2020-0 Yes 1000mg Take 1,000 Univers 1,000 mg [...] ONCE Branch DAILY IN THE EVENING. metFORMIN 1-0 Yes 1000mg Take 1,000 Univers 1,000 mg [...] mouth 2 it y of 00:00: (two) [place] 00 times Medical daily. Branch sotaloL 80 [...] every [place] 00 morning. Medical Branch lisinopriL 2021-0 Yes 20mg Take 20 mg U nivers 20 mg 2-22 by mouth ity of tablet 00:00: every [place] [address] morning. Medical Branch lisinopriL 2021-0 Yes 20mg Take 20 mg U nivers 20 mg 2-22 by mouth ity of tablet 00:00: every [place] 00 morning. Medical Branch lisinopriL 2021-0 Yes 20mg Take 20 mg U nivers 20 mg 2-22 by mouth ity of tablet 00:00: every [place] 00 morning. Medical Branch lisinopriL 2021-0 Yes 20mg Take 20 mg U nivers 20 mg 2-22 by mouth ity of tablet 00:00: every [place] [address] morning. Medical Branch lisinopriL 2021-0 Yes 20mg Take 20 mg U nivers 20 mg 2-22 by mouth ity of tablet 00:00: every [place] [address] morning. Medical Branch lisinopriL 2021-0 Yes 20mg Take 20 mg U nivers 20 mg 2-22 by mouth ity of tablet 00:00: every [place] [address] morning. Medical Branch lisinopriL 2021-0 Yes 20mg Take 20 mg U nivers 20 mg 2-22 by mouth ity of tablet 00:00: every [place] [address] morning. Medical Branch lisinopriL 2021-0 Yes 20mg Take 20 mg U nivers 20 mg 2-22 by mouth ity of tablet 00:00: every [place] [address] morning. Medical Branch lisinopriL 2021-0 Yes 20mg Take 20 mg U nivers 20 mg 2-22 by mouth ity of tablet 00:00: every [place] [address] morning. Medical Branch lisinopriL 2021-0 Yes 20mg Take 20 mg U nivers 20 mg 2-22 by mouth ity of tablet 00:00: every [place] [address] morning. Medical Branch lisinopriL 2021-0 Yes 20mg Take 20 mg U nivers 20 mg 2-22 by mouth ity of tablet 00:00: every [place] [address] morning. Medical Branch lisinopriL 2021-0 Yes 20mg Take 20 mg U nivers 20 mg 2-22 by mouth ity of tablet 00:00: every [place] [address] morning. Medical Branch lisinopriL 2021-0 Yes 20mg Take 20 mg U nivers 20 mg 2-22 by mouth ity of tablet 00:00: every [place] 00 morning. Medical Branch lisinopriL 2021-0 Yes 20mg Take 20 mg U nivers 20 mg 2-22 by mouth ity of tablet 00:00: every 00 morning. Medical Branch lisinopriL Yes 20mg Take 20 mg U nivers 20 mg 2-22 by mouth ity of tablet 00:00: every 00 morning. Medical Branch [facility] Yes TAKE ONE Unive rs M10 10 mEq 1-13 (1) ity of tablet 00:00: TABLET(S) [place] 00 BY MOUTH Medical ONCE A DAY Branch WITH FOOD. ONETOUCH Yes USE TO Univers ULTRA BLUE 1-13 TEST BLOOD ity of TEST STRIP 00:00: GLU[place]SE [place] 00 ONCE A Medical DAY. [facility] Yes TAKE ONE Unive rs M10 10 mEq 1-13 (1) ity of tablet 00:00: TABLET(S) [place] 00 BY MOUTH Medical ONCE A DAY Branch WITH FOOD. ONETOUCH Yes USE TO Univers ULTRA BLUE 1-13 TEST BLOOD ity of TEST STRIP 00:00: GLUCOSE [place] 00 ONCE A Medical DAY. [facility] Yes TAKE ONE Unive rs M10 10 mEq 1-13 (1) ity of tablet 00:00: TABLET(S) [place] 00 BY MOUTH Medical ONCE A DAY Branch WITH FOOD. ONETOUCH Yes USE TO Univers ULTRA BLUE 1-13 TEST BLOOD ity of TEST STRIP 00:00: GLUCOSE [place] 00 ONCE A Medical DAY. [facility] Yes TAKE ONE Unive rs M10 10 mEq 1-13 (1) ity of tablet 00:00: TABLET(S) [place] 00 BY MOUTH Medical ONCE A DAY Branch WITH FOOD. ONETOUCH Yes USE TO Univers ULTRA BLUE 1-13 TEST BLOOD ity of TEST STRIP 00:00: GLUCOSE [place] 00 ONCE A Medical DAY. [facility] Yes TAKE ONE Unive rs M10 10 mEq 1-13 (1) ity of tablet 00:00: TABLET(S) [place] 00 BY MOUTH Medical ONCE A DAY Branch WITH FOOD. ONETOUCH Yes USE TO Univers ULTRA BLUE 1-13 TEST BLOOD ity of TEST STRIP 00:00: GLUCOSE [place] 00 ONCE A Medical DAY. [facility] Yes TAKE ONE Unive rs M10 10 mEq 1-13 (1) ity of tablet 00:00: TABLET(S) [place] 00 BY MOUTH Medical ONCE A DAY Branch WITH FOOD. ONETOUCH Yes USE TO Univers ULTRA BLUE 1-13 TEST BLOOD ity of TEST STRIP 00:00: GLUCOSE [place] 00 ONCE A Medical DAY. [facility] Yes TAKE ONE Unive rs M10 10 mEq 1-13 (1) ity of tablet 00:00: TABLET(S) [place] 00 BY MOUTH Medical ONCE A DAY Branch WITH FOOD. ONETOUCH Yes USE TO Univers ULTRA BLUE 1-13 TEST BLOOD ity of TEST STRIP 00:00: GLUCOSE [place] 00 ONCE A Medical DAY. [facility] Yes TAKE ONE Unive rs M10 10 mEq 1-13 (1) ity of tablet 00:00: TABLET(S) [place] 00 BY MOUTH Medical ONCE A DAY [place] WITH FOOD. ONETOUCH Yes USE TO Univers ULTRA BLUE 1-13 TEST BLOOD ity of TEST STRIP 00:00: GLUCOSE [place] 00 ONCE A Medical DAY. [facility] Yes TAKE ONE Unive rs M10 10 mEq 1-13 (1) ity of tablet 00:00: TABLET(S) [place] 00 BY MOUTH Medical ONCE A DAY Branch WITH FOOD. ONETOUCH Yes USE TO Univers ULTRA BLUE 1-13 TEST BLOOD ity of TEST STRIP 00:00: GLUCOSE [place] 00 ONCE A Medical DAY. [facility] Yes TAKE ONE Unive rs M10 10 mEq 1-13 (1) ity of tablet 00:00: TABLET(S) [place] 00 BY MOUTH Medical ONCE A DAY Branch WITH FOOD. ONETOUCH Yes USE TO Univers ULTRA BLUE 1-13 TEST BLOOD ity of TEST STRIP 00:00: GLUCOSE [place] 00 ONCE A Medical DAY. [facility] Yes TAKE ONE Unive rs M10 10 mEq 1-13 (1) ity of tablet 00:00: TABLET(S) [place] 00 BY MOUTH Medical ONCE A DAY Branch WITH FOOD. ONETOUCH Yes USE TO Univers ULTRA BLUE 1-13 TEST BLOOD ity of TEST STRIP 00:00: GLUCOSE [place] strip 00 ONCE A Medical DAY. [facility] Yes TAKE ONE Unive rs M10 10 mEq 1-13 (1) ity of tablet 00:00: TABLET(S) [place] 00 BY MOUTH Medical ONCE A DAY Branch WITH FOOD. ONETOUCH Yes USE TO Univers ULTRA BLUE 1-13 TEST BLOOD ity of TEST STRIP 00:00: GLUCOSE [place] strip 00 ONCE A Medical DAY. [facility] Yes TAKE ONE Unive rs M10 10 mEq 1-13 (1) ity of tablet 00:00: TABLET(S) [place] 00 BY MOUTH Medical ONCE A DAY Branch WITH FOOD. ONETOUCH Yes USE TO Univers ULTRA BLUE 1-13 TEST BLOOD ity of TEST STRIP 00:00: GLUCOSE [place] strip 00 ONCE A Medical DAY. [facility] Yes TAKE ONE Unive rs M10 10 mEq 1-13 (1) ity of tablet 00:00: TABLET(S) [place] 00 BY MOUTH Medical ONCE A DAY Branch WITH FOOD. ONETOUCH Yes USE TO Univers ULTRA BLUE 1-13 TEST BLOOD ity of TEST STRIP 00:00: GLUCOSE [place] strip 00 ONCE A Medical DAY. [facility] Yes TAKE ONE Unive rs M10 10 mEq 1-13 (1) ity of tablet 00:00: TABLET(S) [place] 00 BY MOUTH Medical ONCE A DAY Branch WITH FOOD. ONETOUCH Yes USE TO Univers ULTRA BLUE 1-13 TEST BLOOD ity of TEST STRIP 00:00: GLUCOSE [place] 00 ONCE A Medical DAY. [facility] Yes TAKE ONE Unive rs M10 10 [...] Source Systolic blood 2020-10-27 19:23:00 147 mm[Hg] Jorgeer silvio [facility] pressure Medical Branch Diastolic blood 2020-10-27 19:23:00 81 mm[Hg] Manjula [facility] pressure [facility] Branch Heart rate 2020-10-27 19:23:00 55 /min Universi ty of [facility] Body height 2020-10-27 19:17:00 172.7 cm Universi ty of [facility] Body weight 2020-10-27 19:17:00 86.[address] [facility] Branch BMI 2020-10-27 19:17:00 28.89 kg/m2 Universi ty of [facility] Body height 2020-10-06 19:59:00 172.7 cm Universi ty of [facility] Body weight 2020-10-06 19:59:00 86.183 kg Universi ty of [facility] BMI 2020-10-06 19:59:00 28.89 kg/m2 Universi ty of [facility] Body height 2020-09-15 18:32:00 172.7 cm Universi ty of [facility] Body weight 2020-09-15 18:32:00 90.719 kg Universi ty of [facility] BMI 2020-09-15 18:32:00 30.41 kg/m2 Universi ty of [facility] Branch Procedures Procedure Date / Time Performed Performing Clinician Sour e XR WRIST <3 VW RIGHT 2020-10-27 18:57:09 [facility]iz [facility] ASSIGNMENT OF BENEFITS 2020-10-27 18:45:23 Doctor Unassigned, No [facility] Name Medical Branch XR WRIST <3 VW RIGHT 2020-10-06 20:30:15 Deniz Rust [facility] MEDICAL 2020-10-01 05:01:00 Doctor Unassigned, No [facility] RELEASE/CLEARANCE Name Medical Branch FORMS EXTERNAL PROVIDER 2020-09-29 05:01:00 Doctor Unassigned, No Univ [facility] RECORDS Name Medical Branch ASSIGNMENT OF BENEFITS 2020-09-15 19:40:27 Doctor Unassigned, No [facility] Medical Branch Encounters Start End Encounter Admission Attending Care Care Encounter Source Date/Time Date/Time Type Type Clinicians Facility Department ID 2021-04-12 Emergency X [facility] [id number] Univers 10:46:54 ity [facility] 2020-10-27 2020-10-27 [facility] [id number] Univers 13:46:32 23:59:00 Encounter Deniz Sutton [id number] ity of [place] [id number] [place] [facility] [id number] [facility] 807 [place] 2020-10-27 2020-10-27 Office [facility] [id number] Univers 14:10:50 14:49:33 Visit Deniz Alfred [id number] it y of Surgical [id number] [place] as Specialti [phone] Fl dical es 198 [facility] 2020-10-27 2020-10-27 [facility] [id number] Univers 13:30:00 13:30:00 DENIZ [id number] ity [facility] 2020-10-27 2020-10-27 [facility] [id number] Univers 13:30:00 13:30:00 DENIZ ity [facility] 2020-10-27 2020-10-27 Orders Doctor MAGALIE [id number] Univers 00:00:00 00:00:00 Only Unassigned, RONY [id number] ity of [place] [facility] [id number] Hussein as [id number] [facility] 009 [place] 2020-10-24 2020-10-24 Telephone [facility] [id number] Univers 00:00:00 00:00:00 Deniz Alfred [id number] it y of Surgical [id number] [place] as Specialti [phone] Me dical es 198 [facility] 2020-10-06 2020-10-06 [facility] [id number] Univers 15:30:15 23:59:00 Encounter Deniz Alfred [id number] ity of Surgical [id number] [place] as Specialti [phone] Me dical es 809 [facility] 2020-10-06 2020-10-06 Office [facility] [id number] Univers 14:51:21 15:52:33 Visit Deniz Alfred [id number] it y of Surgical [id number] [place] as Specialti [id number] Fl dical es 198 [facility] 2020-10-06 2020-10-06 Out[facility] [id number] Univers 15:00:00 15:00:00 DENIZ [id number] ity of [facility] 2020-10-06 2020-10-06 Outpatient [facility] [id number] Univers 15:00:00 15:00:00 DENIZ ity [facility] 2020-10-01 2020-10-01 Orders Doctor MAGALIE [id number] Univers 00:00:00 00:00:00 Only Unassigned, RONY [id number] ity of [place] [facility] [id number] Hussein as [id number] [address] 2020-09-30 2020-09-30 Telephone [facility] [id number] Univers 00:00:00 00:00:00 Deniz Alfred [id number] it y of Surgical [id number] [place] as Specialti [phone] Fl dical es 198 [facility] 2020-09-29 2020-09-29 Orders Doctor MAGALIE [id number] Univers 00:00:00 00:00:00 Only Unassigned, RONY [id number] ity of [place] [facility] [id number] Hussein as [id number] [facility] 009 [place] 2020-09-15 2020-09-15 Hospital [facility] [id number] Univers 15:15:00 23:59:00 Encounter Deniz [place] [id number] it[place] [id number] [place] [phone] [facility] 807 Branch 2020-09-15 2020-09-15 Manager Fiber [facility] Main [facility] [id number] Univers 14:45:49 15:00:49 Visit Eva Rice [id number] [id number] [place] [phone] Me dical nal 353 Branch [facility] 2020-09-15 2020-09-15 Office Deniz Rust [facility] 1.2.840. [id number] Univers 13:23:02 14:23:26 Visit Eva Rice [facility] [id number] ity of Surgical [id number] [place] as Specialti [id number] Me dical es 198 [facility] 2020-09-15 2020-09-15 Outpatient Sarah [facility] [id number] Univers 13:30:00 13:30:00 EVA [id number] ity [facility] 2020-09-15 2020-09-15 Outpatient Sarah Beth [facility] [id number] Univers 13:30:00 13:30:00 [facility] 2020-09-15 2020-09-15 Orders Doctor MAGALIE [id number] Univers 00:00:00 00:00:00 Only Unassigned, RONY [id number] ity of [place] [facility] [id number] Hussein as [phone] [facility] 009 Branch Results Test Description Test Time Test Comments Results Result Sour e Comments XR WRIST <3 VW 2020-10-11 Healing distal Unive rsity of RIGHT 7 radial and ulnar [place] Me dical 22:54:01 fractures. Mildly Branch prominent pisotriquetral interval.XR WRIST <3 VW RIGHT INDICATION: wrist pain COMPARISON: 10/06/2020 FINDINGS: Healing comminuted distal radial metaphyseal and ulnar styloid fractures.Unchanged volar apex angulation of the radial fracture. Ulnar positivevariance. 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 Mild prominence of thepisotriquetral interval. [facility], Radiant Results Inft User - 10/27/2020 5:55 PM CDTXR WRIST <3 VW RIGHTINDICATION: wrist pain COMPARISON: 10/06/2020FINDINGS:Hea ling comminuted distal radial metaphyseal and ulnar styloid [...]
[2022-01-26 17:51] LABS: Urine Blood 3+ (Negative); Urine Glucose 3+ (Negative); Urine Protein 3+ (Negative)
--- NOTE | 2022-01-26 17:53 | ER ---
Nurse's Notes [facility] Name: Miles Chowdary Age: 86 yrs Sex: Male : 1935 Arrival Date: 01/26/2022 Time: 16:32 Bed 12 Private MD: Ge Cuevas T Diagnosis: UTI/ Urinary tract infection, site not specified;Disorder of urinary system, unspecified Presentation: 01/26 16:37 Chief complaint: Blood in urine after self cath this morning. Takes Xarelto. hb Coronavirus screen: At this time, the client does not indicate any symptoms associated with coronavirus-19. Ebola Screen: No symptoms or risks identified at this time. Risk Assessment: Do you want to hurt yourself or someone else? Patient reports no desire to harm self or others. Onset of symptoms was January 26, 2022. 16:37 Method Of Arrival: Ambulatory 16:37 Acuity: MILDRED 3 hb 16:37 Initial Sepsis Screen: Does the patient meet any 2 criteria? No. Patient's initial iw sepsis screen is negative. Does the patient have a suspected source of infection? No. Patient's initial sepsis screen is negative. Triage Assessment: 16:37 General: Appears in no apparent distress. Behavior is calm, cooperative. 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 Denies injuries from another. Nutritional iw screening: No deficits noted. Tuberculosis screening: No symptoms or risk factors identified. Assessment: 16:37 General: Appears in no apparent distress. Behavior is calm, cooperative. Pain: Denies iw pain. Neuro: Ribeiro Agitation-Sedation Scale (RASS): Level of Consciousness is awake, alert, obeys commands, Oriented to person, place, time, situation, Moves all extremities. Full function. 16:37 Derm: Skin is intact, is healthy with good turgor. iw Vital Signs: 16:37 BP 145 / 108; Pulse 79; Resp 20; Temp 97.8; Pulse Ox 99% on R/A; Pain 0/10; hb ED Course: 16:32 Patient arrived in ED. mr 16:32 Ge Cuevas MD is Private Physician. mr 16:37 Bart Fuentes is PHCP. jl9 16:37 Charlie Gilliam DO is Attending Physician. jl9 16:38 Triage completed. hb 16:38 Arm band placed on. hb 16:43 PHCP role handed off by Bart Fuentes cp 16:43 Ryan Mccollum PA is PHCP. cp 16:54 FuentesBart is PHCP. jl9 17:30 Louis cath inserted, using sterile technique, 16 Fr., by vt, balloon inflated, returned iw cloudy urine. Patient tolerated well. 17:45 Jolynn Arvizu RN is Primary Nurse. iw 18:32 No provider procedures requiring assistance completed. Patient did not have IV access iw during this emergency room visit. Administered Medications: No medications were administered Outcome: 17:51 Discharge ordered by . alana 18:33 Discharged to iw 18:33 Condition: good 18:33 Discharge instructions given to patient, Instructed on discharge instructions, follow up and referral plans. Demonstrated understanding of instructions, follow-up care. 18:34 Patient left the ED. iw Signatures: Gomez, Sandie subramanian Jolynn Arvizu RN RN Ryan Mccollum PA PA cp Baxter, Heather, RN RN Bart Fuentes jl9 Corrections: (The following items were deleted from the chart) 01/27 12:03 01/26 16:00 General: Appears in no apparent distress. Behavior is calm, cooperative, iw 01/27 12:03 08 16:00 Pain: Denies pain. iw 01/27 12:03 08 16:00 Neuro: Ribeiro Agitation-Sedation Scale (RASS): Level of Consciousness is iw awake, alert, obeys commands, Oriented to person, place, time, situation, Moves all extremities. Full function iw
--- NOTE | 2022-01-26 17:53 | EDPHYS ---
Physician Documentation [facility] Name: Miles Chowdary Age: 86 yrs Sex: Male : 1935 Arrival Date: 01/26/2022 Time: 16:32 Bed 12 Private MD: Ge Cuevas T ED Physician Charlie Gilliam HPI: 01/26 16:42 This 86 yrs old Male presents to ER via Ambulatory with complaints of jl9 bleeding from penis after performing a straight cath. Patient is new to using a straight cath and has done it 3 times. Daughter at side is requesting a collier. . 16:42 Onset: The symptoms/episode began/occurred 1 day(s) ago. Associated signs and symptoms: jl9 The patient has no apparent associated signs or symptoms. Modifying factors: the patient symptoms are aggravated by Straight cath. . Historical: - Allergies: 16:38 Farxiga; hb - Home Meds: 16:38 furosemide 40 mg Oral tab once daily [Active]; lisinopril 40 mg Oral tab once daily hb [Active]; metformin 1,000 mg Oral tab 2 times per day [Active]; sotalol 80 mg Oral tab 3 times per day [Active]; Xarelto 20 mg Oral tab once daily [Active]; - PMHx: 16:38 "Male breast CA"; Hypertension; pancreatic cancer; skin cancer; Atrial fibrillation; hb - PSHx: 16:38 L mastectomy; hb ROS: 16:45 Constitutional: Negative for fever, chills, and weight loss, Eyes: Negative for injury, jl9 pain, redness, and discharge, ENT: Negative for injury, pain, and discharge, Neck: Negative for injury, pain, and swelling, Cardiovascular: Negative for chest pain, palpitations, and edema, Respiratory: Negative for shortness of breath, cough, wheezing, and pleuritic chest pain, Abdomen/GI: Negative for abdominal pain, nausea, vomiting, diarrhea, and constipation, Back: Negative for injury and pain. 16:45 MS/Extremity: Negative for injury and deformity, Skin: Negative for injury, rash, and discoloration, Neuro: Negative for headache, weakness, numbness, tingling, and seizure, Psych: Negative for depression, anxiety, suicide ideation, homicidal ideation, and hallucinations, Allergy/Immunology: Negative for hives, rash, and allergies, Endocrine: Negative for neck swelling, polydipsia, polyuria, polyphagia, and marked weight changes, Hematologic/Lymphatic: Negative for swollen nodes, abnormal bleeding, and unusual bruising. 16:45 : Positive for small amounts, hematuria, penile pain. Exam: 16:45 Constitutional: This is a well developed, well nourished patient who is awake, alert, jl9 and in no acute distress. Head/Face: Normocephalic, atraumatic. Eyes: Pupils equal round and reactive to light, extra-ocular motions intact. Lids and lashes normal. Conjunctiva and sclera are non-icteric and not injected. Cornea within normal limits. Periorbital areas with no swelling, redness, or edema. ENT: Mucous membranes moist. Neck: Trachea midline, no thyromegaly or masses palpated, and no cervical lymphadenopathy. Supple, full range of motion without nuchal rigidity, or vertebral point tenderness. No Meningismus. Chest/axilla: Normal chest wall appearance and motion. Nontender with no deformity. No lesions are appreciated. Cardiovascular: Regular rate and rhythm with a normal S1 and S2. No gallops, murmurs, or rubs. Normal PMI, no JVD. No pulse deficits. Respiratory: Lungs have equal breath sounds bilaterally, clear to auscultation and percussion. No rales, rhonchi or wheezes noted. No increased work of breathing, no retractions or nasal flaring. Abdomen/GI: Soft, non-tender, with normal bowel sounds. No distension or tympany. No guarding or rebound. No evidence of tenderness throughout. Back: No spinal tenderness. No costovertebral tenderness. Full range of motion. Male : Normal genitalia with no discharge or lesions. Skin: Warm, dry with normal turgor. Normal color with no rashes, no lesions, and no evidence of cellulitis. MS/ Extremity: Pulses equal, no cyanosis. Neurovascular intact. Full, normal range of motion. Neuro: Awake and alert, GCS 15, oriented to person, place, time, and situation. Cranial nerves II-XII grossly intact. Motor strength 5/5 in all extremities. Sensory grossly intact. Cerebellar exam normal. Normal gait. Psych: Awake, alert, with orientation to person, place and time. Behavior, mood, and affect are within normal limits. Vital Signs: 16:37 BP 145 / 108; Pulse 79; Resp 20; Temp 97.8; Pulse Ox 99% on R/A; Pain 0/10; hb MDM: 16:41 Patient medically screened. jl9 16:46 Data reviewed: vital signs, nurses notes. 01/26 16:46 Order name: Collier Leg Bag; Complete Time: 17:48 jl9 01/26 17:44 Order name: Urine Dipstick-Ancillary (obtain specimen); Complete Time: 17:48 9 01/26 17:51 Order name: Urine Dipstick-Ancillary; Complete Time: 21:38 EDMS Administered Medications: No medications were administered Disposition: 21:37 Co-signature as Attending Physician, Charlie Gilliam DO I was immediately available on-site ms3 in the Emergency Department for consultation in the care of the patient.. Disposition Summary: 01/26/22 17:51 Discharge Ordered Location: Home jl9 Condition: Stable jl9 Diagnosis - UTI/ Urinary tract infection, site not specified jl9 - Disorder of urinary system, unspecified jl9 Followup: jl9 - With: Private Physician - When: 1 - 2 days - Reason: Recheck today's complaints, Continuance of care, Re-evaluation by your physician Discharge Instructions: - Discharge Summary Sheet jl9 - Urinary Tract Infection, Adult, [id number] jl9 - Indwelling Urinary Catheter Care, Adult, [id number] jl9 Forms: - Medication Reconciliation Form jl9 - Thank You Letter jl9 - Antibiotic Education jl9 - Prescription Opioid Use jl9 Prescriptions: - Augmentin 875-125 mg Oral Tablet - take 1 tablet by ORAL route every 12 hours for 10 days; 20 tablet; Refills: 0, jl9 Product Selection Permitted Signatures: Dispatcher [employer] EDMS Zenaida Sales RN RN Charlie Nye DO DO ms3 Bart Fuentes jl9 Corrections: (The following items were deleted from the chart) 16:45 16:42 This 86 yrs old Male presents to ER via Ambulatory with complaints of jl9 bleeding from penis after performing a straight cath. Patient is new to using a straight cath and has done it 3 times. Daughter at side is requsting a collier. . jl9
[2022-01-26 20:04] VITALS: BP 145/108; TEMP 97.8; O2SAT 99
== END 2022-01-26 18:34 | disposition home or self-care (01) ==
LOC: ER 16:29
DX: N39.0 Urinary tract infection, site not specified (principal); N39.9 Disorder of urinary system, unspecified; I10 Essential (primary) hypertension; I48.91 Unspecified atrial fibrillation; Z79.01 Long term (current) use of anticoagulants; Z88.8 Allergy status to other drugs, medicaments and biological substances; Z85.3 Personal history of malignant neoplasm of breast; Z85.07 Personal history of malignant neoplasm of pancreas; Z85.828 Personal history of other malignant neoplasm of skin
CPT/HCPCS: 81003

== ENCOUNTER 2022-02-09 06:30 | Day surgery (SDC) | payer OTHER ==
[2022-02-05 16:21] LABS: Absolute Lymphocytes (CBC) 1.3 K/uL (0.7-4.9); Hematocrit 29.1 % (39.6-49.0); Lymphocytes % 11.7 % (15.3-44.8); MCV 79.9 fL (80-100); MPV 9.4 fL (7.6-11.3); RBC Red Blood Cell Count 3.64 M/uL (4.33-5.43)
[2022-02-05 16:26] LABS: Protime INR 1.65
[2022-02-05 16:33] LABS: Potassium 3.8 mmol/L (3.5-5.1)
[2022-02-05 16:51] LABS: SARS-CoV-2 Antigen Rapid Res Negative (Negative)
[2022-02-09] MEDS ORDERED: FENTANYL CITR 100 MCG/2 ML ONE (06:45)
[2022-02-09] MEDS ORDERED: ATROPINE SULF 1 MG/10 ML SYR IV ONE (06:46)
[2022-02-09] MEDS ORDERED: MIDAZOLAM HCL 15 ML ONE (06:46)
[2022-02-09] MEDS ORDERED: METOPROLOL TARTRATE 5 MG/5 ML INJ IV ONE (06:46)
[2022-02-09] MEDS ORDERED: FLUMAZENIL 0.1 MG/ML (5 mL VIAL) IV ONE (06:47)
[2022-02-09] MEDS ORDERED: NA CHLORIDE 0.9% 500 ML ONE (06:58)
--- NOTE | 2022-02-09 08:12 | EKG ---
Test Date: 2022-02-09 Test Time: 07:45:24 Social Worker: JUD MEASUREMENT RESULTS: Intervals: Rate: 59 MI: 176 QRSD: 132 QT: 672 QTc: 665 [place]: P: 61 MI: 176 QRS: -40 T: -57 INTERPRETIVE STATEMENTS: Sinus bradycardia with marked sinus arrhythmia Left axis deviation Right bundle branch block T wave abnormality, consider lateral ischemia Abnormal ECG Compared to ECG 12/10/2021 09:35:29 Left-axis deviation now present Right bundle-branch block now present T-wave abnormality now present Possible ischemia now present Atrial premature complex(es) no longer present Accelerated junctional rhythm no longer present Myocardial infarct finding no longer present Electronically Signed On 02-09-22 08:11:52 CDT by Jaime Matt
--- NOTE | 2022-02-09 08:20 | OP ---
Surgeon: Jaime Matt MD Business Process Expert: Ms. Kathleen Foreman. If his atrial fibrillation returns, we will consider amiodarone or possibly AV denilson ablation with a pacemaker. Procedure: He underwent a direct current cardioversion. Indication: Atrial fibrillation. Procedure In Detail: Mr. Chowdary Was sedated with 5 mg of Versed IV push x1 dose. He received 2 shocks of 200 joules each and he converted to sinus bradycardia with PACs. There were no complications or blood loss. The patient tolerated the procedure well. Case was discussed with the daughter. He will go home when he wakes up. He will continue his Xarelt o and continue his sotalol at 80 mg 1 p.o. b.i.d. Total conscious sedation was 30 minutes. LOUIE/BRADY Voice ID: [id number] Report ID: [id number]
[2022-02-09 08:45] VITALS: BP 128/74; O2SAT 100
== END 2022-02-09 08:45 | disposition home or self-care (01) ==
LOC: CCL 06:30
DX: I48.21 Permanent atrial fibrillation (principal); I11.0 Hypertensive heart disease with heart failure; I50.22 Chronic systolic (congestive) heart failure; I34.0 Nonrheumatic mitral (valve) insufficiency; I27.21 Secondary pulmonary arterial hypertension; I51.7 Cardiomegaly; I65.22 Occlusion and stenosis of left carotid artery; E11.9 Type 2 diabetes mellitus without complications; Z79.01 Long term (current) use of anticoagulants; Z79.899 Other long term (current) drug therapy; Z87.891 Personal history of nicotine dependence; Z20.822 Contact with and (suspected) exposure to COVID-19
CPT/HCPCS: 93005; 85025; 80048; 36415; 85610; 85730; 92960; 87811; J2250; J7040; J3010

== ENCOUNTER 2022-03-11 17:50 | Inpatient (IN) | payer OTHER ==
--- OUTSIDE RECORDS SUMMARY | 2022-03-11 17:53 | XMS REPORT | Continuity of Care Document ---
:1935 Author Organization [facility] t Address [address] [place] [address] [address] [place] [address] Care Team Providers Name Role Phone PHYSICIAN, OUTSIDE Primary Care Physician Unavailable Deniz Rust MD Attending Clinician DENIZ RUST Attending Clinician Unavailable Doctor Unassigned, [place] Attending Clinician Unavailable Pohorace, Jose C Lab Main Attending Clinician Unavailable Eva Mercer [...] rs active active ity of problems problems [facility] Allergies, Adverse Reactions, Alerts Allergy Allergy Status Severity Reaction(s) Onset Inactive Treating Comm ents Source Name Type Date Date Clinician NO KNOWN Drug Active Univers ALLERGIE Class ity of S [facility] Social History Social Habit Start Date Stop Date Quantity Comments Source Exposure to Not sure [facility] SARS-CoV-2 [facility] (event) [employer] Tobacco use and 2020-10-27 2020-10-27 Never used Universit y of exposure 00:00:00 00:00:00 [facility] Alcohol intake 2020-10-27 2020-10-27 Lifetime University of 00:00:00 00:00:00 non-drinker [facility] (finding) [employer] Sex Ass[birth year] At [birth year] Universit y of 00:00:00 00:00:00 [facility] Smoking Status Start Date Stop Date Source Never smoker [facility] Medications Ordered Filled Start Stop Current Ordering [...] EVERY Branch EIGHT HOURS NEEDED. traMADoL 50 2021-0 Yes TAKE ONE Un guzman mg tablet [...] by mouth ity of tablet 00:00: daily. [address] furosemide 2021-0 Yes 40mg Take 40 mg U nivers 40 mg 3-31 by mouth ity of tablet 00:00: daily. [address] furosemide 2021-0 Yes 40mg Take 40 mg U nivers 40 mg 3-31 by mouth ity of tablet 00:00: daily. [address] furosemide 2021-0 Yes 40mg Take 40 mg U nivers 40 mg 3-31 by mouth ity of tablet 00:00: daily. [address] furosemide 2021-0 Yes 40mg Take 40 mg U nivers 40 mg 3-31 by mouth ity of tablet 00:00: daily. [address] furosemide 2021-0 Yes 40mg Take 40 mg U nivers 40 mg 3-31 by mouth ity of tablet 00:00: daily. [address] furosemide 2021-0 Yes 40mg Take 40 mg U nivers 40 mg 3-31 by mouth ity of tablet 00:00: daily. [address] furosemide 2021-0 Yes 40mg Take 40 mg U nivers 40 mg 3-31 by mouth ity of tablet 00:00: daily. [address] furosemide 2021-0 Yes 40mg Take 40 mg U nivers 40 mg 3-31 by mouth ity of tablet 00:00: daily. [address] furosemide 0 Yes 40mg Take 40 mg U nivers 40 mg 3-31 by mouth ity of tablet 00:00: daily. [place] [facility] furosemide 0 Yes 40mg Take 40 mg U nivers 40 mg 3-31 by mouth ity of tablet 00:00: daily. [address] furosemide 0 Yes 40mg Take 40 mg U nivers 40 mg 3-31 by mouth ity of tablet 00:00: daily. [address] furosemide 0 Yes 40mg Take 40 mg U nivers 40 mg 3-31 by mouth ity of tablet 00:00: daily. [address] furosemide 0 Yes 40mg Take 40 mg U nivers 40 mg 3-31 by mouth ity of tablet 00:00: daily. [address] furosemide Yes 40mg Take 40 mg U nivers 40 mg 3-31 by mouth ity of tablet 00:00: daily. [address] furosemide 0 Yes 40mg Take 40 mg U nivers 40 mg 3-31 by mouth ity of tablet 00:00: daily. [address] XARELTO 20 Yes TAKE ONE Uni [...] A DAY Branch WITH EVENING MEAL. TRESIBA 2021-0 Yes INJECT Univers FLEXTOUCH 2-25 THIRTY ity of U-200 200 00:00: (30) UNITS [place] unit/mL (3 00 UNDER THE Medi derek mL) InPn SKIN ONCE Branch DAILY IN THE EVENING. metFORMIN 2021-0 Yes 1000mg Take 1,000 Univers 1,000 mg 2-25 mg by ity of tablet 00:00: mouth 2 [place] 00 (two) Medical times Branch daily. TRESIBA [...] by mouth ity of tablet 00:00: every [place] 00 morning. Medical Branch lisinopriL 2021-0 Yes 20mg Take 20 mg U nivers 20 mg 2-22 by mouth ity of tablet 00:00: every [place] 00 morning. Medical Branch lisinopriL 2021-0 Yes 20mg Take 20 mg U nivers 20 mg 2-22 by mouth ity of tablet 00:00: every [place] 00 morning. Medical Branch lisinopriL 2021-0 Yes 20mg Take 20 mg U nivers 20 mg 2-22 by mouth ity of tablet 00:00: every [place] 00 morning. Medical Branch lisinopriL 2021-0 Yes 20mg Take 20 mg U nivers 20 mg 2-22 by mouth ity of tablet 00:00: every [place] morning. Medical Branch lisinopriL 2021-0 Yes 20mg Take 20 mg U nivers 20 mg 2-22 by mouth ity of tablet 00:00: every [place] [address] morning. Medical Branch lisinopriL 2021-0 Yes 20mg Take 20 mg U nivers 20 mg 2-22 by mouth ity of tablet 00:00: every [place] [address] morning. Medical Branch lisinopriL 2021-0 Yes 20mg Take 20 mg U nivers 20 mg 2-22 by mouth ity of tablet 00:00: every [place] [address] morning. Medical Branch lisinopriL 2021-0 Yes 20mg Take 20 mg U nivers 20 mg 2-22 by mouth ity of tablet 00:00: every [place] [address] morning. Medical Branch lisinopriL 2021-0 Yes 20mg Take 20 mg U nivers 20 mg 2-22 by mouth ity of tablet 00:00: every [place] [address] morning. Medical Branch lisinopriL 2021-0 Yes 20mg Take 20 mg U nivers 20 mg 2-22 by mouth ity of tablet 00:00: every [place] 00 morning. Medical Branch lisinopriL 2021-0 Yes 20mg Take 20 mg U nivers 20 mg 2-22 by mouth ity of tablet 00:00: every [place] 00 morning. Medical Branch lisinopriL 2021-0 Yes 20mg Take 20 mg U nivers 20 mg 2-22 by mouth ity of tablet 00:00: every [place] 00 morning. Medical Branch lisinopriL 2021-0 Yes 20mg Take 20 mg U nivers 20 mg 2-22 by mouth ity of tablet 00:00: every 00 morning. Medical Branch lisinopriL Yes 20mg Take 20 mg U nivers 20 mg 2-22 by mouth ity of tablet 00:00: every 00 morning. Medical Branch [facility] Yes TAKE ONE Unive rs M10 10 mEq 1-13 (1) ity of tablet 00:00: TABLET(S) [place] 00 BY MOUTH Medical ONCE A DAY Branch WITH FOOD. ONETOUCH Yes USE TO Univers ULTRA BLUE 1-13 TEST BLOOD ity of TEST STRIP 00:00: GLU[place]SE [place] strip 00 ONCE A Medical DAY. [facility] Yes TAKE ONE Unive rs M10 10 mEq 1-13 (1) ity of tablet 00:00: TABLET(S) [place] 00 BY MOUTH Medical ONCE A DAY Branch WITH FOOD. ONETOUCH Yes USE TO Univers ULTRA BLUE 1-13 TEST BLOOD ity of TEST STRIP 00:00: GLUCOSE [place] strip 00 ONCE A Medical DAY. [facility] Yes TAKE ONE Unive rs M10 10 mEq 1-13 (1) ity of tablet 00:00: TABLET(S) [place] 00 BY MOUTH Medical ONCE A DAY Branch WITH FOOD. ONETOUCH Yes USE TO Univers ULTRA BLUE 1-13 TEST BLOOD ity of TEST STRIP 00:00: GLU[place]SE [place] strip 00 ONCE A Medical DAY. [facility] Yes TAKE ONE Unive rs M10 10 mEq 1-13 (1) ity of tablet 00:00: TABLET(S) [place] 00 BY MOUTH Medical ONCE A DAY Branch WITH FOOD. ONETOUCH Yes USE TO Univers ULTRA BLUE 1-13 TEST BLOOD ity of TEST STRIP 00:00: GLU[place]SE [place] 00 ONCE A Medical DAY. [facility] Yes TAKE ONE Unive rs M10 10 mEq 1-13 (1) ity of tablet 00:00: TABLET(S) [place] 00 BY MOUTH Medical ONCE A DAY Branch WITH FOOD. ONETOUCH Yes USE TO Univers ULTRA BLUE 1-13 TEST BLOOD ity of TEST STRIP 00:00: GLU[place]SE [place] strip 00 ONCE A Medical DAY. [facility] Yes TAKE ONE Unive rs M10 10 mEq 1-13 (1) ity of tablet 00:00: TABLET(S) [place] 00 BY MOUTH Medical ONCE A DAY Branch WITH FOOD. ONETOUCH Yes USE TO Univers ULTRA BLUE 1-13 TEST BLOOD ity of TEST STRIP 00:00: GLU[place]SE [place] 00 ONCE A Medical DAY. [facility] Yes TAKE ONE Unive rs M10 10 mEq 1-13 (1) ity of tablet 00:00: TABLET(S) [place] 00 BY MOUTH Medical ONCE A DAY Branch WITH FOOD. ONETOUCH Yes USE TO Univers ULTRA BLUE 1-13 TEST BLOOD ity of TEST STRIP 00:00: GLU[place]SE [place] 00 ONCE A Medical DAY. [facility] Yes TAKE ONE Unive rs M10 10 mEq 1-13 (1) ity of tablet 00:00: TABLET(S) [place] 00 BY MOUTH Medical ONCE A DAY Branch WITH FOOD. ONETOUCH Yes USE TO Univers ULTRA BLUE 1-13 TEST BLOOD ity of TEST STRIP 00:00: GLU[place]SE [place] strip 00 ONCE A Medical DAY. [facility] Yes TAKE ONE Unive rs M10 10 mEq 1-13 (1) ity of tablet 00:00: TABLET(S) [place] 00 BY MOUTH Medical ONCE A DAY Branch WITH FOOD. ONETOUCH Yes USE TO Univers ULTRA BLUE 1-13 TEST BLOOD ity of TEST STRIP 00:00: GLU[place]SE [place] strip 00 ONCE A Medical DAY. [facility] Yes TAKE ONE Unive rs M10 10 mEq 1-13 (1) ity of tablet 00:00: TABLET(S) [place] 00 BY MOUTH Medical ONCE A DAY Branch WITH FOOD. ONETOUCH Yes USE TO Univers ULTRA BLUE 1-13 TEST BLOOD ity of TEST STRIP 00:00: GLU[place]SE [place] strip 00 ONCE A Medical DAY. [facility] Yes TAKE ONE Unive rs M10 10 mEq 1-13 (1) ity of tablet 00:00: TABLET(S) [place] 00 BY MOUTH Medical ONCE A DAY Branch WITH FOOD. ONETOUCH Yes USE TO Univers ULTRA BLUE 1-13 TEST BLOOD ity of TEST STRIP 00:00: GLU[place]SE [place] strip 00 ONCE A Medical DAY. [facility] Yes TAKE ONE Unive rs M10 10 mEq 1-13 (1) ity of tablet 00:00: TABLET(S) [place] 00 BY MOUTH Medical ONCE A DAY Branch WITH FOOD. ONETOUCH Yes USE TO Univers ULTRA BLUE 1-13 TEST BLOOD ity of TEST STRIP 00:00: GLU[place]SE [place] strip 00 ONCE A Medical DAY. [facility] Yes TAKE ONE Unive rs M10 10 mEq 1-13 (1) ity of tablet 00:00: TABLET(S) [place] 00 BY MOUTH Medical ONCE A DAY Branch WITH FOOD. ONETOUCH Yes USE TO Univers ULTRA BLUE 1-13 TEST BLOOD ity of TEST STRIP 00:00: GLU[place]SE [place] 00 ONCE A Medical DAY. [facility] Yes TAKE ONE Unive rs M10 10 mEq 1-13 (1) ity of tablet 00:00: TABLET(S) [place] 00 BY MOUTH Medical ONCE A DAY Branch WITH FOOD. ONETOUCH Yes USE TO Univers ULTRA BLUE 1-13 TEST BLOOD ity of TEST STRIP 00:00: GLU[place]SE [place] strip 00 ONCE A Medical DAY. [facility] Yes TAKE ONE Unive rs M10 10 mEq 1-13 (1) ity of tablet 00:00: TABLET(S) [place] 00 BY MOUTH Medical ONCE A DAY Branch WITH FOOD. ONETOUCH Yes USE TO Univers ULTRA BLUE 1-13 TEST BLOOD ity of TEST STRIP 00:00: [place]SE [place] 00 ONCE A Medical DAY. [facility] Yes TAKE ONE Unive rs M10 10 [...] Systolic blood 2020-10-27 19:23:00 147 mm[Hg] Univer [facility] pressure Medical Branch Diastolic blood 2020-10-27 19:23:00 81 mm[Hg] Manjula [facility] Branch Heart rate 2020-10-27 19:23:00 55 /min Universi ty of [facility] Branch Body height 2020-10-27 19:17:00 172.7 cm Universi ty of [facility] Branch Body weight 2020-10-27 19:17:00 86.183 kg Universi ty of [facility] Branch BMI 2020-10-27 19:17:00 28.89 kg/m2 Universi ty of [facility] Branch Body height 2020-10-06 19:59:00 172.7 cm Universi ty of [facility] Branch Body weight 2020-10-06 19:59:00 86.183 kg Universi ty of [facility] Branch BMI 2020-10-06 19:59:00 28.89 kg/m2 Universi ty of [facility] Branch Body height 2020-09-15 18:32:00 172.7 cm Universi ty of [facility] Branch Body weight 2020-09-15 18:32:00 90.719 kg Universi ty of [place] Medical Branch BMI 2020-09-15 18:32:00 30.41 kg/m2 Universi ty of [place] Medical Branch Procedures Procedure Date / Time Performed Performing Clinician Richard coffey XR WRIST <3 VW RIGHT 2020-10-27 18:57:09 [facility] ASSIGNMENT OF BENEFITS 2020-10-27 18:45:23 Doctor Unassigned, No [facility] Name Medical Branch XR WRIST <3 VW RIGHT 2020-10-06 20:30:15 Deniz [facility] MEDICAL 2020-10-01 05:01:00 Doctor Unassigned, No [facility] RELEASE/CLEARANCE Name Medical Branch FORMS EXTERNAL PROVIDER 2020-09-29 05:01:00 Doctor Unassigned, No Univ [facility] RECORDS Name Medical Branch ASSIGNMENT OF BENEFITS 2020-09-15 19:40:27 Doctor Unassigned, No [facility] Medical Branch Encounters Start End Encounter Admission Attending Care Care Encounter Source Date/Time Date/Time Type Type Clinicians Facility Department ID 2021-04-12 Emergency X [facility] [id number] Univers 10:46:54 ity of [facility] 2020-10-27 2020-10-27 [facility] [id number] Univers 13:46:32 23:59:00 Encounter Deniz Sutton [id number] ity of [id number] [id number] [facility] 807 [employer] 2020-10-27 2020-10-27 Office [facility] [id number] Univers 14:10:50 14:49:33 Visit Deniz Alfred [id number] it y of Surgical [id number] [place] as Specialti [phone] Hi dicak es 198 [facility] 2020-10-27 2020-10-27 Outpatient R [facility] [id number] Univers 13:30:00 13:30:00 DENIZ [id number] ity of [facility] 2020-10-27 2020-10-27 Outpatient R [facility] [id number] Univers 13:30:00 13:30:00 DENIZ ity [facility] 2020-10-27 2020-10-27 Orders Doctor MAGALIE [id number] Univers 00:00:00 00:00:00 Only Unassigned, RONY [id number] ity of [place] [facility] [id number] Hussein as [id number] [facility] 009 [employer] 2020-10-24 2020-10-24 Telephone [facility] [id number] Univers 00:00:00 00:00:00 Deniz [facility] [id number] it y of Surgical [id number] [place] as Specialti [id number] Hi dical es 198 [facility] 2020-10-06 2020-10-06 [facility] [id number] Univers 15:30:15 23:59:00 Encounter Deniz [facility] [id number] ity of Surgical [id number] [place] as Specialti [id number] Hi dical es 809 [facility] 2020-10-06 2020-10-06 [facility] [id number] Univers 14:51:21 15:52:33 Visit Deniz Alfred [id number] it y of Surgical [id number] [place] as Specialti [phone] Hi dical es 198 [facility] 2020-10-06 2020-10-06 [facility] [id number] Univers 15:00:00 15:00:00 DENIZ [id number] ity of [facility] 2020-10-06 2020-10-06 Outpatient [facility] [id number] Univers 15:00:00 15:00:00 DENIZ ity [facility] 2020-10-01 2020-10-01 Orders Doctor MEJIAS [id number] Univers 00:00:00 00:00:00 Only Unassigned, RONY [id number] ity of [place] [facility] [id number] Hussein as [id number] [address] 2020-09-30 2020-09-30 Telephone [facility] [id number] Univers 00:00:00 00:00:00 Deniz Alfred [id number] it y of Surgical [id number] [place] as Specialti [phone] Hi dical es 198 [facility] 2020-09-29 2020-09-29 Orders Doctor MAGALIE [id number] Univers 00:00:00 00:00:00 Only Unassigned, RONY [id number] ity of [place] [facility] [id number] Hussein as [id number] [address] 2020-09-15 2020-09-15 Hospital [facility] [id number] Univers 15:15:00 23:59:00 Encounter Deniz Sutton [id number] ity [id number] [id number] [facility] derek 807 Branch 2020-09-15 2020-09-15 Director Heart Jose C [facility] Main [facility] [id number] Univers 14:45:49 15:00:49 Visit Eva Rice [id number] ity of [place] [id number] [facility] Profess[facility] [id number] Me dical nal 353 Branch [facility] 2020-09-15 2020-09-15 Office Deniz Rust [facility] 1.2.840. [id number] Univers 13:23:02 14:23:26 Visit Eva Rice [facility] [id number] ity of Surgical [id number] [place] as Specialti [id number] Me dical es 198 [facility] 2020-09-15 2020-09-15 Outpatient [facility] [id number] Univers 13:30:00 13:30:00 EVA [id number] ity of [facility] 2020-09-15 2020-09-15 Outpatient [facility] [id number] Univers 13:30:00 13:30:00 [facility] 2020-09[facility] 2020-09-15 Orders Doctor MAGALIE [id number] Univers 00:00:00 00:00:00 Only Unassigned, RONY [id number] ity of [place] [facility] [id number] Hussein as [phone] [facility] 009 Branch Results Test Description Test Time Test Comments Results Result Sour e Comments XR WRIST <3 VW 2020-10-11 Healing distal Unive rsity of RIGHT 7 radial and ulnar [place] Me dical 22:54:01 fractures. Mildly Branch prominent pisotriquetral interval.XR WRIST <3 VW RIGHT INDICATION: wrist pain COMPARISON: 10/06/2020 FINDINGS: Healing comminuted distal radial metaphyseal and ulnar styloid fractures.Unchanged volar apex angulation of the radial fracture. Ulnar positivevariance. 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 Mild prominence of thepisotriquetral interval. [facility], Radiant Results Inft User - [...]
[2022-03-11 18:41] LABS: Urine Blood Trace-intact (Negative); Urine Glucose 3+ (Negative); Urine Protein Negative (Negative); Urine Specific Gravity 1.015 (1.005-1.030); Urine pH 6.5 (5.0-7.0)
[2022-03-11 18:42] LABS: Absolute Lymphocytes (CBC) 1.3 K/uL (0.7-4.9); Hematocrit 35.4 % (39.6-49.0); Lymphocytes % 10.2 % (15.3-44.8); MCV 82.2 fL (80-100); MPV 9.4 fL (7.6-11.3)
[2022-03-11 18:47] LABS: Protime INR 2.03
--- NOTE | 2022-03-11 18:57 | RAD REPORT ---
EXAM DESCRIPTION: RAD - Chest Single View - 03/11/2022 6:40 pm CLINICAL HISTORY: fall, chest pain COMPARISON: Portable 12/10/2021 TECHNIQUE: AP portable chest image was obtained 03/11/2022 6:40 pm . FINDINGS: No acute lung parenchymal process. Interstitial pattern is similar or less prominent from comparison. Heart size is normal, decreased from prior imaging with normal vasculature. No measurable pleural effusion and no pneumothorax. No acute bony abnormality seen. No acute aortic findings suspe cted. IMPRESSION: No acute cardiopulmonary process.
[2022-03-11 19:01] LABS: Albumin 3.1 g/dL (3.4-5.0); Bilirubin Direct 0.1 mg/dL (0-0.2); Bilirubin Total 0.3 mg/dL (0.2-1.0); Magnesium 1.5 mg/dL (1.8-2.4); Potassium 3.9 mmol/L (3.5-5.1); Protein, Total 7.3 g/dL (6.4-8.2); Troponin High Sensitivity 31.6 pg/mL (<58.9)
[2022-03-11 19:02] LABS: Urine Bacteria 20-50 /HPF (<20); Urine Mucus Slight /HPF (None Seen); Urine RBC <5 /HPF (None Seen)
[2022-03-11 19:25] LABS: SARS-CoV-2 Antigen Rapid Res Negative (Negative)
--- NOTE | 2022-03-11 19:39 | RAD REPORT ---
EXAM DESCRIPTION: CT - Head C Spine Cap Wo Con - 03/11/2022 7:11 pm CLINICAL HISTORY: fall, head, neck, chest and abdomen pain COMPARISON: Head C Spine Cap Wo Con dated 12/10/2021 TECHNIQUE: Axial [address] head images were obtained. Axial [address] cervical spine images were obtain ed with sagittal and coronal reconstruction images reviewed. Axial 5 mm images of the chest, abdomen and pelvis were obtained. All CT scans are performed using dose optimization technique as appropriate and may include automated exposure control or mA/KV adjustment according to patient size. FINDINGS: No intracranial hemorrhage, mass or edema. No midline shift or abnormal fluid collection. Mastoid air cells are clear. Chronic left maxillary sinusitis present with acute paranasal sinus find ing. No skull fracture. Osteopenic changes are present. Cervical vertebral body heights are normal. Alignment is normal excep t for slight anterior subluxation of C7 on T1. This is similar to the prior study. Facet joint degene rative change present. All levels except C2-3 show some degree of disc space narrowing. No fracture o r acute bone finding. No prevertebral soft tissue thickening or paraspinal mass.Central canal detail is inherently limited on CT imaging. CT chest shows no pneumothorax, pulmonary contusion or pleural fluid collection. Apical scarring garg ges are present. No mediastinal hematoma and the aorta and pulmonary arteries are unremarkable. No ch est will mass or abnormal axillary finding. No displaced rib fracture or other significant bony findi ng. CT abdomen and pelvis show no injury to solid abdominal viscera. Gallbladder and biliary tree are unr emarkable. No bowel injury or significant finding. No free air, free fluid or abnormal stranding. No hernia, mass or bulky lymphadenopathy. No urinary bladder abnormality. Louis catheter is in place. Disc and bone degenerative changes are present. Findings are most pronounced at the L2-3 disc level. L3-4 fusion is present at the body level possibly congenital. IMPRESSION: No significant CT Head finding. Chronic left maxillary sinusitis Cervical spine degenerative change with no acute finding. No significant CT Chest finding. No significant CT Abdomen and Pelvis finding.
[2022-03-11] MEDS ORDERED: CEFEPIME 1 GM/VIAL ONE (19:41)
[2022-03-11] MEDS ORDERED: NA CHLORIDE 0.9% 100 ML ONE (19:41)
[2022-03-11] MEDS ORDERED: MAGNESIUM SULFATE 1 gm IVPB 1 GM/100 ML BAG IV ONE (19:41)
[2022-03-11] MEDS ORDERED: VANCOMYCIN 1 GM/VIAL ONE (19:43)
[2022-03-11] MEDS ORDERED: NA CHLORIDE 0.9% 250 ML ONE (19:43)
--- NOTE | 2022-03-11 20:27 | EDPHYS ---
Physician Documentation [facility] Name: Miles Chowdary Age: 86 yrs Sex: Male : 1935 Arrival Date: 03/11/2022 Time: 17:52 Bed 5 Private MD: ED Physician Lalit Perry HPI: 03/11 18:10 This 86 yrs old Male presents to ER via EMS with complaints of Fall Injury. cp 18:10 Details of fall: The patient fell from an upright position, while standing, and struck cp a tile surface. 18:10 Onset: The symptoms/episode began/occurred 5 hour(s) ago. Associated injuries: The cp patient sustained injury to the head, contusion, neck injury, pain. 18:10 Patient reports legs became weak, causing him to fall in kitchen. Denies LOC. 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 - Social history:: Smoking status: Patient denies any tobacco usage or history of. ROS: 18:15 Constitutional: Negative for body aches, chills, fever. cp 18:15 Eyes: Negative for injury, pain, redness, and discharge. cp 18:15 Cardiovascular: Positive for edema, Negative for chest pain. 18:15 Respiratory: Negative for cough, shortness of breath, wheezing. cp 18:15 ENT: Positive for ear pain, Negative for sore throat. cp 18:15 Abdomen/GI: Negative for abdominal pain, nausea, vomiting, and diarrhea, constipation, black/tarry stool, rectal bleeding. 18:15 Neuro: Positive for weakness, Negative for altered mental status, dizziness, headache, numbness, syncope. 18:15 All other systems are negative. cp Exam: 18:18 Constitutional: The patient appears in no acute distress, alert, awake, cp non-diaphoretic, non-toxic, well developed, well nourished. 18:18 Head/Face: Normocephalic, atraumatic. cp 18:18 Eyes: Periorbital structures: appear normal, Pupils: equal, round, and reactive to cp light and accomodation, Extraocular movements: intact throughout, Conjunctiva: normal, no exudate, no injection, Sclera: no appreciated abnormality, Lids and lashes: appear normal, bilaterally. 18:18 ENT: External ear(s): right ear appears with purulent drainage, mild erythema, Ear canal(s): are normal, clear, TM's: dullness, bilaterally, Nose: is normal, Mouth: Lips: moist, Oral mucosa: moist, Posterior pharynx: Airway: no evidence of obstruction, patent. 18:18 Neck: ROM/movement: is normal, is supple, without pain, no range of motions limitations, no meningismus. 18:18 Chest/axilla: Inspection: normal, Palpation: is normal, no crepitus, no tenderness. 18:18 Cardiovascular: Rate: normal, Rhythm: regular, Edema: moderate lower leg, JVD: is not appreciated. 18:18 Respiratory: the patient does not display signs of respiratory distress, Respirations: normal, no use of accessory muscles, no retractions, labored breathing, is not present, Breath sounds: are clear throughout, no decreased breath sounds, no stridor, no wheezing. 18:18 Abdomen/GI: Inspection: abdomen appears normal, Bowel sounds: active, all quadrants, Palpation: abdomen is soft and non-tender, in all quadrants. 18:18 Back: vertebral tenderness, is not appreciated. 18:18 Skin: cellulitis, that is moderate, on the left lower leg and right lower leg and right ear. 18:18 Neuro: Orientation: to person, place \\T\\ time. Mentation: is normal, Motor: moves all fours, general weakness with no focal deficits. 18:18 Special observations: old bandages reportedly placed one month ago, appear adhered to skin to lower legs. 18:20 ECG was reviewed by the Attending Physician. cp Vital Signs: 18:00 BP 151 / 107; Pulse 93; Resp 20; Pulse Ox 99% ; kl 18:04 BP 97 / 64; Pulse 83; Resp 16; Temp 97.6(O); Pulse Ox 95% on R/A; Pain 0/10; ss 19:30 BP 160 / 97; Pulse 76; Resp 20; Pulse Ox 100% ; kl 20:00 BP 185 / 91; Pulse 81; Resp 20; Pulse Ox 98% ; kl 22:00 BP 152 / 88; Pulse 72; Resp 18; Pulse Ox 100% ; kl 23:00 BP 144 / 74; Pulse 70; Resp 18; Pulse Ox 99% ; tw5 [place] Coma Score: 17:57 Eye Response: spontaneous(4). Verbal Response: oriented(5). Motor Response: obeys ss commands(6). Total: 15. Trauma Score (Adult): 17:57 Eye Response: spontaneous(1); Verbal Response: oriented(1); Motor Response: obeys ss commands(2); Systolic BP: > 89 mm Hg(4); Respiratory Rate: 10 to 29 per min(4); Anh Score: 15; Trauma Score: 12 MDM: 18:00 Patient medically screened. 20:00 Data reviewed: vital signs, nurses notes, lab test result(s), EKG, radiologic studies, cp CT scan, plain films. 20:00 Test interpretation: by ED physician or midlevel provider: ECG, plain radiologic cp studies. Response to treatment: the patient's symptoms have mildly improved after treatment. 03/11 18:05 Order name: Basic Metabolic Panel; Complete Time: 19:16 03/11 19:16 Interpretation: Normal except: NA 134; GLUC 380; BUN 19; CRE 1.43; GFR 48. 03/11 18:05 Order name: CBC with Diff; Complete Time: 19:16 03/11 19:17 Interpretation: Normal except: WBC 13.20; RBC 4.30; HGB 11.4; HCT 35.4; MCH 26.5; RDW cp 19.0; LEONIDAS% 77.7; LYM% 10.2; NEUT A 10.3; MNA 1.6. 03/11 18:05 Order name: LFT's; Complete Time: 19:16 03/11 18:05 Order name: Magnesium; Complete Time: 19:16 03/11 19:17 Interpretation: Abnormal: MG 1.5. 03/11 18:05 Order name: NT PRO-BNP; Complete Time: 19:16 03/11 19:17 Interpretation: Abnormal: NT PRO-BNP 5096. 03/11 18:05 Order name: PT-INR; Complete Time: 19:16 03/11 18:05 Order name: Troponin HS; Complete Time: 19:16 03/11 18:05 Order name: CK; Complete Time: 19:16 03/11 18:05 Order name: Urine Microscopic Only; Complete Time: 19:16 03/11 19:17 Interpretation: Normal except: UBACT 20-50; BYST Trace. 03/11 18:06 Order name: Lactate; Complete Time: 19:16 03/11 18:06 Order name: Procalcitonin; Complete Time: 19:52 03/11 18:06 Order name: Blood Culture Adult (2) 03/11 18:06 Order name: Wound Culture 03/11 18:42 Order name: Urine Dipstick-Ancillary; Complete Time: 19:16 [facility] 03/11 18:05 Order name: XRAY Chest (1 view); Complete Time: 19:16 03/11 18:05 Order name: EKG; Complete Time: 18:06 03/11 18:05 Order name: Cardiac monitoring; Complete Time: 18:34 03/11 18:05 Order name: EKG - Nurse/Tech; Complete Time: 18:34 03/11 18:20 Order name: CT Traumagram (Head C Spine CAP wo con); Complete Time: 19:41 03/11 18:49 Order name: SARS RAPID; Complete Time: 19:29 6 03/11 22:17 Order name: Lactate Sepsis 2 HR Follow-up [facility] 03/12 04:50 Order name: Comprehensive Metabolic Panel [facility] 03/12 04:50 Order name: Lipid Profile [facility] 03/12 04:50 Order name: T4 Free [facility] 03/12 04:50 Order name: Magnesium [facility] 03/12 04:50 Order name: Thyroid Stimulating Hormone [facility] 03/11 18:05 Order name: IV Saline Lock; Complete Time: 18:34 03/11 18:05 Order name: Labs collected and sent; Complete Time: 18:34 03/11 18:05 Order name: O2 Per Protocol; Complete Time: 18:34 cp 03/11 18:05 Order name: O2 Sat Monitoring; Complete Time: 18:34 cp 03/11 18:05 Order name: Urine Dipstick-Ancillary (obtain specimen); Complete Time: 18:34 cp 03/11 19:41 Order name: Vital Signs; Complete Time: 23:14 cp 03/11 19:52 Order name: Louis; Complete Time: 21:50 cp EC:20 Rate is 80 beats/min. Rhythm is regular. WI interval is prolonged at 222 msec. QRS cp interval is prolonged at 134 msec. QT interval is prolonged at 484 msec. Interpreted by me. Reviewed by me. Administered Medications: 21:10 Drug: Cefepime 1 grams Route: IVPB; Rate: 200 ml/hr; Infused Over: 30 mins; Site: right tw5 antecubital; 22:00 Follow up: Response: No adverse reaction; IV Status: Completed infusion; IV Intake: tw5 100ml 22:00 Drug: Magnesium Sulfate 1 grams Route: IVPB; Infused Over: 1 hrs; Site: right tw5 antecubital; 23:13 Follow up: Response: No adverse reaction; IV Status: Completed infusion; IV Intake: tw5 100ml 22:00 Drug: vancoMYCIN 1 grams Route: IVPB; Infused Over: 2 hrs; Site: right antecubital; tw5 22:35 Drug: NS 0.9% 500 ml Route: IV; Rate: 250 ml/hr; Site: right antecubital; tw5 Disposition Summary: 03/11/22 20:27 Hospitalization Ordered Hospitalization Status: Inpatient Admission cp Provider: Jordan Fatima cp Condition: Stable cp Problem: new cp Symptoms: have improved cp Bed/Room Type: Standard cp Location: Telemetry/MedSurg (Inpatient)(03/12/22 04:26) cg Room Assignment: 419(03/12/22 04:26) cg Diagnosis - Cellulitis of right external ear cp - UTI/ Urinary tract infection, site not specified cp - Muscle weakness (generalized) cp - Cellulitis of right lower limb cp - Cellulitis of left lower limb cp - Hypomagnesemia cp Forms: - Medication Reconciliation Form cp - SBAR form cp Addendum: 03/15/2022 08:17 PA/IT ADMINISTRATIVE ASSISTANT's history reviewed, patient interviewed, and examined. I agree with assessment j r11 and care plan and confirm the diagnosis (es) above. Attestation: The patient's history, exam findings, diagnostics, and a summary of any interventions or procedures was reviewed in detail with Ryan WOOTEN. Signatures: Dispatcher [employer] EDMS Btety Mccray RN RN ss Glenn Huston, EMS MANAGER-C EMS MANAGER-Cla1 Ryan Mccollum PA PA Jessica Juarez RN RN Bibi Davis tw5 Lalit Perry MD MD [email or web address] Corrections: (The following items were deleted from the chart) 03/11 21:40 20:27 Telemetry/MedSurg (Inpatient) cg : 20:27 cp cg 03/12 02:49 02:47 ECG was reviewed by the Attending Physician. [facility] 02:49 02:47 Rate is 80 beats/min. Rhythm is regular. WI interval is prolonged at 222 msec. cp QRS interval is prolonged at 134 msec. QT interval is prolonged at 484 msec. Interpreted by me. Reviewed by me. 04:03/11 21:40 [facility] ER HOLD cg cg 03/12 04:03/11 21:40 ERHOLD- cg cg
--- NOTE | 2022-03-11 20:27 | ER ---
Nurse's Notes [facility] Name: Miles Chowdary Age: 86 yrs Sex: Male : 1935 Arrival Date: 03/11/2022 Time: 17:52 Bed 5 Private MD: Diagnosis: Cellulitis of right external ear;UTI/ Urinary tract infection, site not specified;Muscle weakness (generalized);Cellulitis of right lower limb;Cellulitis of left lower limb;Hypomagnesemia Presentation: 03/11 17:57 Chief complaint: EMS states: fall from standing 5 hours ago. C/o mild neck tenderness. ss Denies LOC. Pt has cancerous lesion to R ear that is oozing that he has been refusing to treat as well as swelling to bilateral that has bandages that have not been changed in weeks. C collar in place. Care prior to arrival: None. Mechanism of Injury: Fall from standing position. Trauma event details: Injury occurred in the [facility], Injury occurred: at home. Injury occurred: March 11, 2022. 17:57 Acuity: MILDRED 3 ss 17:57 Method Of Arrival: EMS: [facility] ss 18:04 Coronavirus screen: Client denies travel out of the [place] in the last 14 days. Ebola ss Screen: Patient denies exposure to infectious person. Patient denies travel to an Ebola-affected area in the 21 days before illness onset. Initial Sepsis Screen: Does the patient meet any 2 criteria? No. Patient's initial sepsis screen is negative. Does the patient have a suspected source of infection? No. Patient's initial sepsis screen is negative. Risk Assessment: Do you want to hurt yourself or someone else? Patient reports no desire to harm self or others. Onset of symptoms was March 11, 2022. Trauma Activation: Not Applicable Physician: ED Physician; Name: ; Notified At: ; Arrived At: Physician: General Surgeon; Name: ; Notified At: ; Arrived At: Physician: Radiology; Name: ; Notified At: ; Arrived At: Physician: Respiratory; Name: ; Notified At: ; Arrived At: Physician: Lab; Name: ; Notified At: ; Arrived At: Historical: - Allergies: 18:05 Farxiga; ss - Home Meds: 23:15 metformin 1,000 mg Oral tab 2 times per day [Active]; lisinopril 40 mg Oral tab once tw5 daily [Active]; furosemide 40 mg Oral tab once daily [Active]; sotalol 80 mg Oral tab 3 times per day [Active]; Xarelto 20 mg Oral tab once daily [Active]; - PMHx: 18:05 "Male breast CA"; Atrial fibrillation; Hypertension; pancreatic cancer; skin cancer; ss - PSHx: 18:05 L mastectomy; ss - Immunization history:: Adult Immunizations up to date, Client reports receiving the 2nd dose of the Covid vaccine, Last tetanus immunization: unknown. - Social history:: Smoking status: Patient denies any tobacco usage or history of. Screenin:57 Abuse screen: Denies threats or abuse. Denies injuries from another. Tuberculosis ss screening: Never had TB. 18:32 Nutritional screening: No deficits noted. Fall Risk Secondary diagnosis (15 points) jh6 impaired mobility, IV access (20 points). Gait- Weak (10 pts.). Primary Survey: 17:57 NO uncontrolled hemorrhage observed. A: The client is awake and alert. The airway is ss patent. Breathing/Chest: Spontaneous respiratory effort, equal unlabored respirations, breath sounds clear bilaterally, regular pattern, symmetrical chest rise and fall. Respiratory effort: unlabored. Circulation: Hemorrhage: No external hemorrhage noted. Disability Client is alert. Exposure/Environment: There is no evidence of uncontrolled external bleeding. A warming method has been applied: A warm blanket has been provided to the patient. 18:32 Reassessment Breathing: Spontaneous respiratory effort, equal unlabored respirations, jh6 breath sounds clear bilaterally, regular pattern with symmetrical chest rise and fall. Assessment: 18:28 General: Appears uncomfortable, unkempt, Behavior is calm, cooperative, Smells of jh6 uriine. Pain: Complains of pain in right leg and left leg Pain currently is 4 out of 10 on a pain scale. Quality of pain is described as aching, crampy, Pain began 1 day ago. Is intermittent, Alleviated by rest, Aggravated by increased activity. Neuro: Level of Consciousness is awake, alert, obeys commands, Oriented to person, place, time, situation, Bilingual Teacher are equal bilaterally Weakness in bilateral leg(s) Speech is normal, Facial symmetry appears normal, Pupils are PERRLA, Intact Reports weakness in right leg and left leg Denies blurred vision dizziness. Cardiovascular: Capillary refill < 3 seconds Pulses are all present. Rhythm is regular. Respiratory: No deficits noted. Breath sounds are clear bilaterally. Derm: Wound noted right leg and left leg Rash noted that is draining clear fluid, vesicular, on right leg and left leg. 23:15 General: Pt resting quietly, no s/s of distress. tw5 Vital Signs: 18:00 BP 151 / 107; Pulse 93; Resp 20; Pulse Ox 99% ; kl 18:04 BP 97 / 64; Pulse 83; Resp 16; Temp 97.6(O); Pulse Ox 95% on R/A; Pain 0/10; ss 19:30 BP 160 / 97; Pulse 76; Resp 20; Pulse Ox 100% ; kl 20:00 BP 185 / 91; Pulse 81; Resp 20; Pulse Ox 98% ; kl 22:00 BP 152 / 88; Pulse 72; Resp 18; Pulse Ox 100% ; kl 23:00 BP 144 / 74; Pulse 70; Resp 18; Pulse Ox 99% ; tw5 [place] Coma Score: 17:57 Eye Response: spontaneous(4). Verbal Response: oriented(5). Motor Response: obeys ss commands(6). Total: 15. Trauma Score (Adult): 17:57 Eye Response: spontaneous(1); Verbal Response: oriented(1); Motor Response: obeys ss commands(2); Systolic BP: > 89 mm Hg(4); Respiratory Rate: 10 to 29 per min(4); [place] Score: 15; Trauma Score: 12 ED Course: 17:52 Patient arrived in ED. em1 17:57 Patient has correct armband on for positive identification. Placed in gown. Bed in low ss position. Call light in reach. Side rails up X2. Client placed on continuous cardiac and pulse oximetry monitoring. NIBP monitoring applied. 17:57 Patient maintains SpO2 saturation greater than 95% on room air. ss 18:00 Ryan Mccollum PA is PHCP. cp 18:00 Lalit Perry MD is Attending Physician. cp 18:03 Triage completed. ss 18:05 Arm band placed on right wrist. ss 18:28 Venice Barrera, FARTUN is Primary Nurse. [facility] 18:31 Inserted saline lock: 22 gauge in right antecubital area, using aseptic technique. jh6 Blood collected. 18:31 Initial lab(s) drawn, by ED staff, sent to lab. First set of blood cultures drawn by ED 6 staff, Urine collected: straight cath specimen, clear, EKG done, COVID swab sent to lab. Wound culture swab sent to lab. 18:34 XRAY Chest (1 view) Sent. jh6 18:42 XRAY Chest (1 view) In Process Unspecified. EDMS 19:12 Primary Nurse role handed off by Venice Barrera RN [email or web address] 19:13 CT Traumagram (Head C Spine CAP wo con) In Process Unspecified. EDMS 20:25 Jordan Fatima MD is Hospitalizing Provider. cp 22:00 Louis cath inserted, using sterile technique, 18 Fr., by ar, balloon inflated, to tw5 gravity drainage. 23:15 No provider procedures requiring assistance completed. tw5 23:17 Thermoregulation: warm blanket given to patient. tw5 Administered Medications: 21:10 Drug: Cefepime 1 grams Route: IVPB; Rate: 200 ml/hr; Infused Over: 30 mins; Site: right tw5 antecubital; 22:00 Follow up: Response: No adverse reaction; IV Status: Completed infusion; IV Intake: tw5 100ml 22:00 Drug: Magnesium Sulfate 1 grams Route: IVPB; Infused Over: 1 hrs; Site: right tw5 antecubital; 23:13 Follow up: Response: No adverse reaction; IV Status: Completed infusion; IV Intake: tw5 100ml 22:00 Drug: vancoMYCIN 1 grams Route: IVPB; Infused Over: 2 hrs; Site: right antecubital; tw5 22:35 Drug: NS 0.9% 500 ml Route: IV; Rate: 250 ml/hr; Site: right antecubital; tw5 Medication: 18:33 VIS not applicable for this client. jh6 Intake: 22:00 IV: 100ml; Total: 100ml. tw5 23:13 IV: 100ml; Total: 200ml. tw5 Outcome: 20:27 Decision to Hospitalize by Provider. cp 23:18 Patient's length of stay in the Emergency Department was greater than 2 hours. Pt being tw5 admitted for cellulitis, UTI, generalized weakness. Awaiting bed assignmentPatient's length of stay extended due to 03/12 06:43 Patient left the ED. tw5 Signatures: Dispatcher [employer] EDMS Pamela Zaman RN Koby Sanchez em1 Betty Mccray RN RN Ryan Valverde PA PA cp [place], Yesy 2 Bibi Davis tw5 Venice Barrera RN RN jh6 Corrections: (The following items were deleted from the chart) 03/11 23:20 23:18 Patient's length of stay in the Emergency Department was greater than 2 hours. Pt tw5 being admitted for sepsis, awaiting bed assignmentPatient's length of stay extended due to tw5
--- NOTE | 2022-03-11 21:24 | P.HP ---
Certification for Inpatient Patient admitted to: Inpatient With expected LOS: >2 Midnights Patient will require the following post-hospital care: None Practitioner: I am a practitioner with admitting privileges, knowledge of patient current condition, hospital course, and medical plan of care. Services: Services provided to patient in accordance with Admission requirements found in Title 42 Section 412.3 of the Code of Federal Regulations <Glenn Huston - Last Filed: 03/11/22 22:23> Patient History Date of Service: 03/11/22 Reason for admission: RLE cellulitis, Right ear wound/cellulitis History of Present Illness: 86-year-old male with history of atrial fibrillation on chronic anticoagulation therapy, skin cancer of the right ear, diabetes mellitus type [id number], chronic systolic congestive heart failure presented to the emergency department after sustaining a fall from standing. He was noted to have some erythema to the right lower extremity as well as a chronic wound with cellulitis/erythema to the right ear. Patient reports having radiation therapy to a skin cancer on his right ear that she is unsure of what kind of cancer it was. He noticed over the course the last 2 to 3 weeks the wound to his right ears been looking worse. He was evaluated in the emergency department his labs were significant for sodium 134 glucose 388 creatinine 1.43 GFR 48 BUN 19 white blood cell count 13.2 hemoglobin 11.4 hematocrit 35.4 magnesium 1.5 BNP 5096 urine microscopic with 20-50 bacteria urinalysis nitrite positive, trace blood, 3+ glucose. Lactic acid was 2.8 thus far only sirs criteria met is for white blood cell count greater than 12. ED provier discussed case with ENT Dr. Solis who will consult given open wound to ear/celullitis in that area. - Past Medical/Surgical History Diabetic: Yes -: Diabetes mellitus type 2 -: Chronic atrial fibrillation -: Chronic diastolic heart failure -: History of breast cancer -: History of pancreatic cancer-1994 S/P whipple -: Hx of right ear skin cancer S/P radiation -: Whipple's procedure -: Left mastectomy Psychosocial/ Personal History: Pt is retired, lives at home with his grand daughter and great grand son - Family History Father -: Lung disease - Social History Smoking Status: Never smoker Alcohol use: Yes CD- Drugs: No Caffeine use: Yes Place of Residence: Home <Glenn Huston - Last Filed: 03/11/22 22:23> Date of Service: 03/12/22 <Jordan Fatima - Last Filed: 03/12/22 20:23> Allergies adhesive tape Allergy (Verified 02/05/22 15:22) Rash dapagliflozin [From [facility]] Allergy (Verified 02/05/22 15:22) Rash Home Medications: Sotalol HCl [Betapace] 80 mg PO TID #0 tablet 03/31/12 Furosemide 1 tab PO DAILY 08/19/21 Rivaroxaban [Xarelto] 20 mg PO DAILY AT SUPPER 08/19/21 lisinopriL [Lisinopril] 1 tab PO DAILY 08/19/21 Ferrous Gluconate 1 tab PO DAILY 12/10/21 Metformin HCl 1 tab PO BID 12/10/21 Review of Systems 10-point ROS is otherwise unremarkable General: Weakness, Malaise Musculoskeletal: Leg Pain Integumentary: Rash <Glenn Huston - Last Filed: 03/11/22 22:23> Physical Examination - Physical Exam General: Alert, In no apparent distress, Oriented x3 HEENT: Atraumatic, PERRLA, Mucous membr. moist/pink, Other (Open wound superior/posterior aspect of right ear with surrounding erythema), EOMI, Sclerae nonicteric Neck: Supple, 2+ carotid pulse no bruit, No LAD, Without JVD or thyroid abnormality Respiratory: Clear to auscultation bilaterally, Normal air movement Cardiovascular: Regular rate/rhythm, Normal S1 S2 Capillary refill: <2 Seconds Gastrointestinal: Normal bowel sounds, No tenderness, No masses, No rebound Musculoskeletal: No tenderness Integumentary: No rashes, Erythema (RLE), Warmth Neurological: Normal gait, Normal speech, Normal strength at 5/5 x4 extr, Normal tone, Normal affect - Studies Laboratory Data (last 24 hrs) 03/11/22 18:26: PT 22.7 H, INR 2.03 03/11/22 18:26: WBC 13.20 H, Hgb 11.4 L, Hct 35.4 L, Plt Count 326 03/11/22 18:26: Sodium 134 L, Potassium 3.9, BUN 19 H, Creatinine 1.43 H, Gluc ose 380 H, Magnesium 1.5 L, Total Bilirubin 0.3, AST 36, ALT 35, Alkaline Phosphatase 303 H <Glenn Huston - Last Filed: 03/11/22 22:23> - Studies Microbiology Data (last 24 hrs): 03/11/22 18:33 Wound - Right Lower Leg Gram Stain - Final 03/11/22 20:52 Blood - Blood Anaerobic Blood Culture - Final <Jordan Fatima - Last Filed: 03/12/22 20:23> Assessment and Plan - Plan Assessment: Cellulitis of the right lower extremity Open wound/cellulitis right ear S/P skin cancer/radiation treatment Atrial fibrillation on chronic anticoagulant therapy Diabetes mellitus type 2 hrm-lkgceuz-gvhhxsukf with hyperglycemia Hypertension Fall: Plan: Cellulitis of the right lower extremity: Blood cultures obtained, 06/16 SIRS criteria for elevated HR, Continue abx vancomycin/cefepime. Open wound/cellulitis right ear S/P skin cancer/radiation treatment: ENT consulted Dr Solis to see patient. Continue antibiotics. Atrial fibrillation on chronic anticoagulant therapy: Monitor on tele, sotalol/xarelto continued Diabetes mellitus type 2 prt-yrnikbl-dfrtprhex with hyperglycemia:A1c in the morning, ACHS accuchecks and SSI. Hypertension: Continue home meds. Fall: Pt states his legs "locked up on him" causing him to fall, no LOC/Chest pain. Will have PT evaluate patient. DVT PPX: Continue xarelto Code status: DNR Discharge Plan: Home Plan to discharge in: 72 Hours - Advance Directives Does patient have a Living Will: No Does patient have a Durable POA for Healthcare: No - Code Status/Comfort Care Code Status Assessed: Yes (DNR) Critical Care: No Time Spent Managing Pts Care (In Minutes): 70 <Glenn Huston - Last Filed: 03/11/22 22:23> Physician Review: Patient Assessed, Agree with Above Assessment and Plan <Jordan Fatima - Last Filed: 03/12/22 20:23>
[2022-03-11] MEDS ORDERED: NA CHLORIDE 0.9% 500 ML ONE (22:17)
[2022-03-12] MEDS ORDERED: VANCOMYCIN 1 GM in NA CHLORIDE 0.9% 250 ML IVPB SCH (01:53)
[2022-03-12] MEDS ORDERED: ONDANSETRON 4 MG/2 ML VIAL IV PRN (01:53)
[2022-03-12] MEDS ORDERED: ACETAMINOPHEN 500 MG TAB PO PRN (01:53)
[2022-03-12] MEDS ORDERED: VANCOMYCIN 0.5 GM in NA CHLORIDE 0.9% 100 ML IVPB ONE (04:00)
[2022-03-12 04:14] VITALS: BMI 27.3
[2022-03-12 04:49] LABS: Albumin 2.6 g/dL (3.4-5.0); Bilirubin Total 0.3 mg/dL (0.2-1.0); Magnesium 1.8 mg/dL (1.8-2.4); Potassium 3.6 mmol/L (3.5-5.1); Thyroid Stimulating Hormone 2.62 uIU/mL (0.360-3.740)
[2022-03-12] MEDS ORDERED: POTASSIUM CL SA 10 MEQ TAB PO ONE (07:29)
[2022-03-12] MEDS ORDERED: CEFEPIME 1 GM in NA CHLORIDE 0.9% 100 ML IV SCH ×2 (09:00→21:00)
[2022-03-12] MEDS: SOTALOL HCL 80 MG TAB PO SCH ×3 (09:42→21:31)
[2022-03-12] MEDS: INSULIN -REGULAR HUMAN 50 UNIT/0.5 ML ML SQ SCH ×4 (09:43→21:00)
--- NOTE | 2022-03-12 12:15 | P.PN ---
Date of Service: 03/12/22 ENT Consultation Please see dictated H&P. Impression: 1. 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 2. Nasal tip neoplasm-- most likely malignant. Plan: 1. Keep areas covered with xeroform gauze and 4X4 gauze dressing until definitive outpatient treatment complete. Outpatient dressings can be vaseline and nonadherent dressings. 2. Followup outpatient for surgical excisions and reconstruction. Thank you for this most interesting consultation.
[2022-03-12] MEDS: RIVAROXABAN 20 MG TABLET PO SCH (16:53)
[2022-03-12] MEDS: VANCOMYCIN 1.5 GM in NA CHLORIDE 0.9% 500 ML IVPB SCH (16:56)
[2022-03-12] MEDS ORDERED: RIVAROXABAN 10 MG TABLET PO SCH (17:00)
--- NOTE | 2022-03-12 20:15 | P.PN ---
Subjective Date of Service: 03/12/22 Chief Complaint: RLE cellulitis, Right ear wound/cellulitis No acute events since admission. He denies any pain this morning. He reports that he has been experiencing progressively worsening weakness and has had recurrent mechanical falls. Review of Systems 10-point ROS is otherwise unremarkable General: Weakness (generalized) Physical Examination - Vital Signs Temperature: 97.1 F Blood Pressure: 139/75 Pulse: 73 Respirations: 18 Pulse Ox (%): 97 - Physical Exam General: Alert, In no apparent distress, Oriented x3 HEENT: Atraumatic, PERRLA, Mucous membr. moist/pink, Other (skin lesions noted on nose and right ear auricle ), EOMI, Sclerae nonicteric Neck: Supple, JVD not distended, No Thyromegaly Respiratory: Clear to auscultation bilaterally, Normal air movement Cardiovascular: No edema, Regular rate/rhythm, Normal S1 S2, No gallops, No rubs, No murmurs Gastrointestinal: Normal bowel sounds, Soft and benign, Non-distended, No tenderness, No rebound, No guarding Musculoskeletal: No clubbing Integumentary: Tenderness/swelling (RLE), Erythema, Warmth (RLE) Neurological: Normal speech, Cranial nerves 3-12 intact, Normal affect - Studies Microbiology Data (last 24 hrs): 03/11/22 18:33 Wound - Right Lower Leg Gram Stain - Final 03/11/22 20:52 Blood - Blood Anaerobic Blood Culture - Final Assessment And Plan - Plan # Right Lower Extremity Cellulitis - Does not meet sepsis criteria at this time - Wound culture = gram-positive cocci in pairs and chains - Continue with vancomycin + cefepime - Wound care consulted # Deconditioning complicated by Recurrent Mechanical Falls - PT consulted - may require placement # History of Skin Cancer s/p Radiation - Lesions on nose and right ear are concerning - ENT consulted - recommendations appreciated # Chronic Atrial Fibrillation # Hypertension - Currently in NSR - Continue home sotalol, rivaroxaban # Type II Diabetes Mellitus - Hgb A1c = 12.2 % - Correction scale insulin ordered Jordan Fatima M.D.
[2022-03-13 06:41] LABS: Albumin 2.1 g/dL (3.4-5.0); Bilirubin Total 0.3 mg/dL (0.2-1.0); Magnesium 1.9 mg/dL (1.8-2.4); Potassium 3.7 mmol/L (3.5-5.1)
[2022-03-13] MEDS ORDERED: POTASSIUM CL SA 10 MEQ TAB PO ONE (07:30)
[2022-03-13] MEDS ORDERED: VANCOMYCIN 1.5 GM in NA CHLORIDE 0.9% 500 ML IVPB SCH (08:00)
[2022-03-13] MEDS: INSULIN -REGULAR HUMAN 50 UNIT/0.5 ML ML SQ SCH ×4 (09:15→20:12)
[2022-03-13] MEDS: SOTALOL HCL 80 MG TAB PO SCH ×3 (09:15→20:13)
[2022-03-13] MEDS: CEFEPIME 2 GM in NA CHLORIDE 0.9% 100 ML IV SCH ×2 (09:16→20:13)
--- NOTE | 2022-03-13 14:35 | P.PN ---
Subjective Date of Service: 03/13/22 Chief Complaint: RLE cellulitis, Right ear wound/cellulitis No acute events overnight. He is in good spirits this morning. He worked with PT yesterday, and the plan is for acute rehab placement. He is in agreement with this plan. He reports no particular symptoms this morning. Review of Systems 10-point ROS is otherwise unremarkable General: Weakness (generalized) Integumentary: Rash (RLE) Physical Examination - Vital Signs Temperature: 97.9 F Blood Pressure: 150/73 Pulse: 75 Respirations: 18 Pulse Ox (%): 98 - Studies Microbiology Data (last 24 hrs): 03/11/22 18:33 Wound - Right Lower Leg Gram Stain - Final 03/11/22 20:52 Blood - Blood Anaerobic Blood Culture - Final Assessment And Plan - Plan - Physical Exam General: Alert, In no apparent distress, Oriented x3 HEENT: Atraumatic, PERRLA, Mucous membr. moist/pink, Other (skin lesions noted on nose and right ear auricle), EOMI, Sclerae nonicteric Neck: Supple, JVD not distended, No Thyromegaly Respiratory: Clear to auscultation bilaterally, Normal air movement Cardiovascular: No edema, Regular rate/rhythm, Normal S1 S2, No gallops, No rubs, No murmurs Gastrointestinal: Normal bowel sounds, Soft and benign, Non-distended, No tenderness, No rebound, No guarding Musculoskeletal: No clubbing Integumentary: Tenderness/swelling (RLE), Erythema, Warmth (RLE) Neurological: Normal speech, Cranial nerves 3-12 intact, Normal affect # Right Lower Extremity Cellulitis - Does not meet sepsis criteria at this time - Wound culture = 2+ gram-positive cocci in pairs and chains and 4+ gram- negative rods - Continue with vancomycin + cefepime pending speciation and sensitivities - Wound care consulted # Deconditioning complicated by Recurrent Mechanical Falls - PT consulted - recommended acute rehab placement - Appreciated CM assistance with placement # History of Skin Cancer s/p Radiation - Lesions on nose and right ear are concerning - ENT consulted - recommendations appreciated - Dr. Solis's consult note reviewed # Chronic Atrial Fibrillation # Hypertension - Currently in NSR - Continue home sotalol, rivaroxaban # Type II Diabetes Mellitus - Hgb A1c = 12.2 % - Correction scale insulin ordered Jordan Fatima M.D.
--- NOTE | 2022-03-13 15:19 | CON ---
Date of Consultation: 03/12/2022 Chief Complaint: Right ear and upper neck pain. History Of Present Illness: Patient is a pleasant 86-year-old male who was admitted to the hospital for open wounds involving his right lower extremity and right ear extending into the right upper neck. Upon arrival to the bedside, patient stated that he had a burning sensation to the right upper neck associated with a lesion that has developed recently. He has had intensity modulated radiation therapy to the right auricle for what he says is a basal cell carcinoma. He states that he was not the most adherent to treatment and he could not afford to extend the treatment for the full treatment. Today, he reports right otalgia extending into the right upper neck where satellite lesion is located. He does not report any significant enlargement of the lesions, drainage, bleeding, but reports redness and swelling. He denies ear canal drainage, fever, mastoid tenderness. He also has a lesion located on the nasal tip, which he states has been there for 4 months and it has not been treated, but he suspects this is also a malignancy due to physician telling him that he needed to have it removed. He denies all other ears, nose, or throat complaints today. Past Medical History: Type 2 diabetes mellitus; chronic atrial fibrillation; chronic diastolic heart failure; history of breast cancer; history of pancreatic cancer, status post Whipple procedure; history of right ear skin cancer, per patient, basal cell carcinoma, status post incomplete radiation treatment; left mastectomy. Social History: He reports bzps-tc-wbvlauvo drinking, but denies tobacco or illicit drugs. Allergies: ADHESIVE TAPE AND DAPAGLIFLOZIN. Home Medications: Sotalol, furosemide, rivaroxaban, lisinopril, ferrous gluconate, metformin. Review of Systems: Head: Denies trauma, headache. Constitutional: Denies fever, lethargy. Face: Denies rash, itching, or facial swelling. Ears: Denies otorrhea, but positive for right ear otalgia, redness and swelling. Nose: Positive for nasal tip scabbing and lesion development, but denies rhinorrhea, nasal congestion, postnasal drip. Oral Cavity: Denies sore throats, dysphagia. Physical Examination: Vital Signs: Stable. General: He is awake, alert, and oriented. No acute distress. Head: Atraumatic, normocephalic. Eyes: PERRLA/EOMI. Ears: Normal left auricle with no evidence of otorrhea and tympanic membrane is intact. Right ear: Patient has a helical defect involving the superior to mid third of the right auricle. After taking photos, I was able to visualize perichondrial exposure, and there is significant erythema and edema involving the helix and the erythema, extending down into the antihelix and conchal bowl and radiating posteriorly as well. There is also evidence of telangiectasia and a pearly papule noted on the posterior right article suspicious for basal cell carcinoma. Nose: Midline septum. Patent nasal cavities. Nasal tip demonstrates a large, approximately 2 cm neoplasm with central induration and hyperkeratosis with slightly heaped up borders, suspicious for malignancy. Oral Cavity: Midline uvula. Moist oral mucosa. No erythema or edema. Neck: Pearly papules seen well-circumscribed but tender to touch. Neck is supple. Trachea midline. Diagnoses: 1. Right ear neoplasm, uncertain behavior, but suspicious for malignancy with evidence of auricular deformity involving the left superior to mid helix. 2. Nasal tip neoplasm, uncertain behavior, but suspect malignancy. Plan: 1. After detailed discussion, it was recommended that the right ear be covered with Xeroform dressing and 4 x 4's, white gauze until the area can be treated definitively. We discussed surgical options and I believe he would be a good surgical candidate whereby we could do this possibly in the office and reconstruct as needed. I instructed the nurse to place Xeroform gauze over the right article and down the neck for the satellite lesions located and then placed the 4 x 4's, gauze over this area. With the bandage and some ointment or Vaseline instilled, definitive treatment which can be done in the outpatient setting in my office. 2. Please give the patient contact information to be set up in the outpatient setting. 3. Reasonable to place on doxycycline or penicillin or cephalosporins to prevent infection of these areas. Can also consider mupirocin ointment to these areas until seen in my office. Thank you for this most interesting consultation. STEPH/BRADY Voice ID: [id number] Report ID: [id number] GINGER
[2022-03-13] MEDS: RIVAROXABAN 20 MG TABLET PO SCH (17:21)
[2022-03-13] MEDS: VANCOMYCIN 1.5 GM in NA CHLORIDE 0.9% 500 ML IVPB SCH (17:21)
[2022-03-14 03:26] LABS: Absolute Lymphocytes (CBC) 1.4 K/uL (0.7-4.9); Hematocrit 26.5 % (39.6-49.0); Lymphocytes % 19.1 % (15.3-44.8); MCV 82.2 fL (80-100); MPV 9.4 fL (7.6-11.3); RBC Red Blood Cell Count 3.23 M/uL (4.33-5.43)
[2022-03-14 03:47] LABS: Albumin 2.2 g/dL (3.4-5.0); Bilirubin Total 0.3 mg/dL (0.2-1.0); Magnesium 1.9 mg/dL (1.8-2.4); Potassium 3.9 mmol/L (3.5-5.1); Protein, Total 5.4 g/dL (6.4-8.2)
[2022-03-14] MEDS: INSULIN -REGULAR HUMAN 50 UNIT/0.5 ML ML SQ SCH ×4 (07:30→21:47)
--- NOTE | 2022-03-14 07:48 | EKG ---
Test Date: 2022-03-11 Test Time: 18:12:40 Stem Lead Former: DIANA MEASUREMENT RESULTS: Intervals: Rate: 80 GA: 222 QRSD: 134 QT: 484 QTc: 558 Cisco: P: GA: 222 QRS: 266 T: 202 INTERPRETIVE STATEMENTS: Sinus rhythm with 1st degree AV block Right bundle branch block Abnormal ECG Compared to ECG 02/09/2022 07:45:24 First degree AV block now present Sinus bradycardia no longer present Sinus arrhythmia no longer present Left-axis deviation no longer present T-wave abnormality no longer present Possible ischemia no longer present Electronically Signed On 03-14-22 07:44:47 CDT by Jaime Matt
[2022-03-14] MEDS: CEFEPIME 2 GM in NA CHLORIDE 0.9% 100 ML IV SCH ×2 (08:46→21:47)
[2022-03-14] MEDS: SOTALOL HCL 80 MG TAB PO SCH ×3 (08:48→21:47)
[2022-03-14] MEDS ORDERED: POTASSIUM 25 MEQ EFFERV TAB PO ONE (09:00)
[2022-03-14] MEDS ORDERED: INFLUENZA VACCINE (for 6+ mo) 0.5 ML DOSE IMVAC ONE (15:00)
--- NOTE | 2022-03-14 16:42 | P.PN ---
Subjective Date of Service: 03/14/22 Chief Complaint: RLE cellulitis, Right ear wound/cellulitis No acute events overnight. He is doing well this morning. Wound culture has returned positive for E. Coli. He is awaiting placement into acute rehab. Unlikely to occur over the weekend. Review of Systems 10-point ROS is otherwise unremarkable General: Weakness (generalized) Musculoskeletal: Leg Pain (right - minimal) Physical Examination - Vital Signs Temperature: 98.0 F Blood Pressure: 164/72 Pulse: 69 Respirations: 18 Pulse Ox (%): 95 - Studies Microbiology Data (last 24 hrs): 03/11/22 18:33 Wound - Right Lower Leg Gram Stain - Final Assessment And Plan - Plan - Physical Exam General: Alert, In no apparent distress, Oriented x3 HEENT: Atraumatic, PERRLA, Mucous membr. moist/pink, Other (skin lesions noted on nose and right ear auricle), EOMI, Sclerae nonicteric Neck: Supple, JVD not distended, No Thyromegaly Respiratory: Clear to auscultation bilaterally, Normal air movement Cardiovascular: No edema, Regular rate/rhythm, Normal S1 S2, No gallops, No rubs, No murmurs Gastrointestinal: Normal bowel sounds, Soft and benign, Non-distended, No tenderness, No rebound, No guarding Musculoskeletal: No clubbing Integumentary: Tenderness/swelling (RLE), Erythema, Warmth (RLE) - wound covered in clean dressing Neurological: Normal speech, Cranial nerves 3-12 intact, Normal affect # Multi-Drug Resistant Escherichia Coli Right Lower Extremity Cellulitis - Does not meet sepsis criteria at this time - Wound culture = E. Coli - Continue cefepime, discontinue vancomycin - Wound care consulted # Deconditioning complicated by Recurrent Mechanical Falls - PT consulted - recommended acute rehab placement - Appreciated CM assistance with placement # History of Skin Cancer s/p Radiation - Lesions on nose and right ear are concerning - ENT consulted - recommendations appreciated - Dr. Solis's consult note reviewed # Chronic Atrial Fibrillation # Hypertension - Currently in NSR - Continue home sotalol, rivaroxaban # Type II Diabetes Mellitus - Hgb A1c = 12.2 % - Correction scale insulin ordered Jordan Fatima M.D.
[2022-03-14] MEDS: RIVAROXABAN 20 MG TABLET PO SCH (17:12)
[2022-03-15 06:09] LABS: Absolute Lymphocytes (CBC) 1.2 K/uL (0.7-4.9); Hematocrit 27.7 % (39.6-49.0); Lymphocytes % 21.5 % (15.3-44.8); RBC Red Blood Cell Count 3.38 M/uL (4.33-5.43)
[2022-03-15 06:26] LABS: Potassium 4.4 mmol/L (3.5-5.1)
[2022-03-15] MEDS ORDERED: CEFEPIME 2 GM VIAL ONE (09:06)
[2022-03-15] MEDS ORDERED: NA CHLORIDE 0.9% 100 ML ONE (09:09)
[2022-03-15] MEDS: CEFEPIME 2 GM in NA CHLORIDE 0.9% 100 ML IV SCH ×2 (09:11→21:37)
[2022-03-15] MEDS: INSULIN -REGULAR HUMAN 50 UNIT/0.5 ML ML SQ SCH ×4 (09:11→21:38)
[2022-03-15] MEDS: SOTALOL HCL 80 MG TAB PO SCH ×3 (09:11→21:37)
[2022-03-15] MEDS: RIVAROXABAN 20 MG TABLET PO SCH (16:08)
[2022-03-16 02:00] VITALS: O2SAT 99
[2022-03-16] MEDS ORDERED: NA CHLORIDE 0.9% 0 ML ONE (08:03)
[2022-03-16] MEDS: CEFEPIME 2 GM in NA CHLORIDE 0.9% 100 ML IV SCH (08:43)
[2022-03-16] MEDS: SOTALOL HCL 80 MG TAB PO SCH (08:43)
[2022-03-16] MEDS: INSULIN -REGULAR HUMAN 50 UNIT/0.5 ML ML SQ SCH (08:44)
[2022-03-16] MEDS ORDERED: FUROSEMIDE 40 MG TABLET PO SCH (09:00)
--- NOTE | 2022-03-16 10:58 | PN ---
Date of Progress Note: 03/15/2022 Subjective: The patient was seen this morning for followup. No new complaints or problems reported by the patient. He was lying in bed, not in any distress. Denies any chest pain, shortness of breat h. Objective: Vital Signs: Reviewed. HEENT: Unremarkable. Lungs: Clear to auscultation. Heart: Sounds normal. Abdomen: Soft. Bowel sounds normal. No guarding, rigidity, tenderness, or distention. Extremity: No leg edema. The patient had dressing present over both lower extremities, which was re moved. Left leg really does not have any open wound. Right lower extremity has area of dry skin wit h lower medial part of the leg has some superficial open wound, some areas covered with dry skin. No discharge. No bleeding. Laboratory Data: Sodium 139, potassium 4.4, chloride 109, bicarb 24, BUN 19, creatinine 0.76, glucos e 160. Impression: 1.Cellulitis, right leg. 2.Right leg wound. 3.Diabetes mellitus, uncontrolled. Plan: We will go ahead and continue current medication. Continue current antibiotic. Wound culture results reviewed, the patient is on appropriate culture specific antibiotic. We will consult Wound Care physician for management of this and I will see him tomorrow for followup. The patient has an i ndwelling Louis catheter for the last few months and he sees Dr. Kamara for this and his daughter sherrell anges his catheter on a monthly basis. His urine is clean, yellow in the catheter. SARITA/MODL Voice ID: [id number] Report ID: [id number]
[2022-03-16 11:46] VITALS: BP 180/87; TEMP 97
--- NOTE | 2022-03-16 15:22 | CON ---
Date of Consultation: 03/16/2022 Reason For Consultation: Wound on the lower extremity. History Of Present Illness: The patient is an 86-year-old gentleman who was admitted with cellulitis of the right leg and right ear. The patient was evaluated by Dr. Solis for the right ear and the pat ient was treated for the right leg with antibiotics. The patient is clinically improved, but he does have a small open wound on the right leg, and I was asked to evaluate the patient. He is awake, lalo rt. No sore throat, runny nose, cough, headaches, or dizziness. No chest pain. No fever or chills. No purulent discharge. Review of Systems: Otherwise unremarkable. Past Medical History: Significant for diabetes, chronic atrial fibrillation, chronic diastolic heart failure, history of breast cancer, history of pancreatic cancer, the patient had a Whipple in 1994, history of skin cancer. Past Surgical History: Left mastectomy, Whipple surgery. Allergies: REVIEWED, THEY ARE FARXIGA AND ADHESIVE TAPE. Social History: The patient does not smoke. Drinks occasionally. Family History: Noncontributory. Physical Examination: Vital Signs: Stable. He is afebrile. General: He is awake, alert, and oriented x3. Head and Neck: No masses. Chest: Clear. Heart: S1, S2. Abdomen: Soft. Extremities: Diminished dorsalis pedis and posterior tibial pulses. The patient does have venous in sufficiency, with some varicosities and brownish rash deposition of blood products, small areas of op en partial thickness wounds on the right leg. There is no warmth or redness at this time. There is mild edema. Assessment: Lower extremity venous insufficiency with a wound on the right leg. Recommendations: Nutritional optimization, compression elevation, Christiana with collagenase. Follow u p in the wound healing center in 2 weeks. /MODL Voice ID: [id number] Report ID: [id number]
--- NOTE | 2022-03-17 17:39 | DS ---
Date of Discharge: 03/16/2022 Disposition: Discharged to go home. Physical Examination: HEENT: Unremarkable. Lungs: Clear to auscultation. Heart: Sounds normal. Abdomen: Soft. Bowel sounds normal. No guarding, rigidity, tenderness, distention. Extremities: No leg edema. Laboratory Data: Chemistry: At the time of admission, sodium 134, potassium 3.9, chloride 99, bicar b 27, BUN 19, creatinine 1.43, glucose 380. Hemoglobin A1c was 12.2. Liver function tests were unre markable. Magnesium was 1.5, it was corrected and repeat magnesium next day was 1.8. Yesterday, sod ium 139, potassium 4.4, chloride 109, bicarb 24, BUN 19, creatinine 0.76, glucose 160. Upon admissio n, white count 13.2, hemoglobin 11.4, platelets 326. Yesterday, white count 5.5, hemoglobin 9.1, star telets 196. Wound culture on the right leg showed E coli and enterococcus. Discharge Medications And Instructions: 1.Continue prior home medications. 2.Augmentin 500 mg 2 times a day for 1 week. 3.Follow up with Dr. [facility] per his instruction. 4.Follow up in my office next week. 5.Patient to bring all his medication bottles to office at the time of appointment. 6.Home health care to be arranged by Social Service and home health to provide dressing changes as p er instructions of Dr. Wild. Hospital Course: An 86-year-old male patient admitted to the hospital after he fell down and infecte d right leg wound. Please see dictated H and P for more information. After he was evaluated in the emergency room, he was admitted to the hospital. Patient was given IV antibiotic during his hospital ization, cefepime. His wound culture grew E coli and Enterococcus faecalis. Dr. Wild is consulted for wound healing. Other consults from General Surgery was consulted for wound care management and kylie coffey evaluated today and provided appropriate orders. Physical Therapy was consulted and patient has am bulated very well with Physical Therapy. Condition really is at too high level for inpatient rehab. He really does not need inpatient rehab therapy as he can safely go home. He wants to go home. The patient is stable today. Final Diagnoses: 1.Cellulitis, right leg. 2.Anemia, chronic, unspecified. 3.Hypomagnesemia. 4.Type 2 diabetes mellitus, uncontrolled. 5.Hypertension. 6.Chronic systolic heart failure. 7.Chronic atrial fibrillation. SARITA/MODL Voice ID: [id number] Report ID: [id number]
== END 2022-03-16 12:30 | disposition home health service (06) | DRG 603 ==
LOC: ER 17:50 → ERHOLD 21:05 → 4TH 03-12 04:45
PROVIDERS: ADMIT Internal Medicine; ATTEND Internal Medicine
DX: L03.115 Cellulitis of right lower limb (principal); I48.20 Chronic atrial fibrillation, unspecified; I50.22 Chronic systolic (congestive) heart failure; R65.10 Systemic inflammatory response syndrome (SIRS) of non-infectious origin without acute organ dysfunction; Z16.24 Resistance to multiple antibiotics; I11.0 Hypertensive heart disease with heart failure; L03.116 Cellulitis of left lower limb; E11.65 Type 2 diabetes mellitus with hyperglycemia; D64.9 Anemia, unspecified; I87.2 Venous insufficiency (chronic) (peripheral); C44.212 Basal cell carcinoma of skin of right ear and external auricular canal; E83.42 Hypomagnesemia; B95.2 Enterococcus as the cause of diseases classified elsewhere; B96.20 Unspecified Escherichia coli [E. coli] as the cause of diseases classified elsewhere; Z66 Do not resuscitate; Z23 Encounter for immunization; Z88.8 Allergy status to other drugs, medicaments and biological substances; Z85.3 Personal history of malignant neoplasm of breast; Z79.84 Long term (current) use of oral hypoglycemic drugs; Z90.12 Acquired absence of left breast and nipple; Z85.07 Personal history of malignant neoplasm of pancreas; Z79.01 Long term (current) use of anticoagulants; Z85.828 Personal history of other malignant neoplasm of skin; Z91.048 Other nonmedicinal substance allergy status; Z79.899 Other long term (current) drug therapy; Z20.822 Contact with and (suspected) exposure to COVID-19; W18.30XA Fall on same level, unspecified, initial encounter; Y92.9 Unspecified place or not applicable
CPT/HCPCS: 36415; 51702; 70450; 71045; 71250; 72125; 80048; 80053; 80061; 80076; 80202; 81003; 81015; 82550; 82947; 83036; 83605; 83735; 83880; 84145; 84439; 84443; 84484; 85025; 85610; 87040; 87070; 87077; 87186; 87205; 87811; 90471; 93005; 96365; 96367; 96375; 97110; 97116; 97161; 97530; 99251; 99285; J0692; J1815; J3370; J3475; J7040; J7050; Q2035

== ENCOUNTER 2022-04-01 06:36 | Day surgery (SDC) | payer OTHER ==
[2022-04-01] MEDS ORDERED: NA CHLORIDE 0.9% 1,000 ML ONE (06:46)
[2022-04-01] MEDS ORDERED: LIDOCAINE 1% W/EPI 1:100,000 50 ML MDV ONE (07:24)
[2022-04-01] MEDS ORDERED: FENTANYL CITR 100 MCG/2 ML ONE (07:52)
[2022-04-01] MEDS ORDERED: dexAMETHasone 10 MG/ML VIAL ONE (07:52)
[2022-04-01] MEDS ORDERED: propofoL 200 MG/20 ML VIAL IV ONE (07:52)
[2022-04-01] MEDS ORDERED: LIDOCAINE 2% MPF 5 ML VIAL ONE (07:53)
[2022-04-01] MEDS: CEFAZOLIN SODIUM 1 GM/VIAL ONE ×2 (08:16→08:25)
[2022-04-01] MEDS ORDERED: EPHEDRINE SULF 50 MG/ML VIAL ONE (08:35)
[2022-04-01] MEDS ORDERED: BACITRACIN OINTMENT 14 GM TUBE TOP ONE (09:15)
[2022-04-01 11:01] VITALS: O2SAT 98
[2022-04-01 12:11] VITALS: BP 120/71; TEMP 96.3
--- NOTE | 2022-04-02 09:28 | OP ---
Date of Procedure: 04/01/2022 Surgeon: JOELLE ZAVALA Preoperative Diagnoses: 1.Right ear neoplasm, uncertain behavior, but suspect malignancy. 2.Right superolateral neck neoplasm, uncertain behavior. 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 Procedures: 1.Excision of right auricle squamous cell carcinoma. 2.Excision of right superolateral neck basal squamous cell carcinoma with intermediate layered closu re. Anesthesia: General endotracheal anesthesia was administered. I also infiltrated approximately 10 m L of 1% lidocaine with 1:100,000 epinephrine into the right auricle and right superolateral neck. Estimated Blood Loss: Approximately 10-15 mL. Specimens: Frozen section specimens were obtained from the right auricle and right superolateral nec k. I also submitted a strip measuring 0.4 cm of the right medial auricle to pathology for permanent sections. Findings: Invasive right auricular neoplasm with erythema and edema extending into the scapha and an tihelix and inferiorly into the beginning of the conchal bowl. Invasive right superolateral neck jessee plasm with ulceration. Complications: None. Disposition: Stable. Patient tolerated the procedure well. Indication For Procedure: Patient is a pleasant 86-year-old male whom I initially was introduced to on the medical floor when he was admitted for another medical condition and I was consulted for an in vasive neoplasm involving the right auricle and right upper neck. I saw him in the outpatient [facility] several weeks ago for surgical planning. Patient had undergone radiation therapy to the right ear, but stated that it was too expensive to finish treatment and he was unable to get rides to the [facility] to complete treatment. Thus, he stopped treatment before completion. He also does not remember the name of the cancer and these were indications to bring the patient to the operative suite for the above-mentioned procedures. He understood, all questions were answered. Risks versus benefits, com plications were explained in detail and a consent form was signed, which was placed in the chart. Description Of Procedure: Patient was transferred from the preoperative holding area to the operativ e suite by Department of Anesthesia, placed on the operating table supine, sedated, and intubated in normal fashion. Table was rotated to 90 degrees. I infiltrated approximately 10 mL of 1% lidocaine with 1:100,000 epinephrine into the right auricle incision site as well as the right superolateral ne ck incision site and then the patient was sterilely prepped and draped. I made incisions along the anterior and posterior right auricular skin and through the cartilages. I t looked as though the malignant neoplasm was ulcerative and invading into the cartilage. Once I rem kinga that strip, I sent it to pathology for them to perform frozen sections. Pathology confirm that indeed it was invasive squamous cell carcinoma extending into the cartilage as there was suspicion fo r perineural invasion. That strip measured 4.0 x 3.0 cm. The margins were still positive. Thus, I had to extend the incision to include a 0.4 x 0.4 cm strip that involved the anterior margin. This i ncluded cartilage and skin and this was submitted. This strip was sent as a permanent section. The total excision was 4.4 x 3.4 cm. Next, I made an incision around the right superolateral neck neoplasm and this was performed with a # 15 blade scalpel through skin and subcutaneous tissue down to muscle and the lesion measured approxim ately 3.5 x 2.0 cm. This was sent as a frozen section and result returned basal squamous cell carcin ky with free margins. Hemostasis was achieved with suction Bovie cautery on the 20 setting of coagu lation. Surgicel and Xeroform were placed over the right ear defect. I closed the right superolater al neck wound defect with 4-0 Monocryl in a simple interrupted fashion by closing the deeper layers w ith this suture. I then chose to close the epidermis with 4.0 Monocryl in a continuous running fashi on. The closure length of the right superolateral neck wound defect was 6.0 cm. I had to remove sev eral standing cutaneous deformities to decrease wound tension and for setup purposes as well as to pr event dehiscence of the wound and adjacent deformity of the neck. A compressive ear dressing was star noe and ointment and gauze pad was placed over the right superolateral neck. He tolerated the proced ure well and will be discharged home on antibiotics and antibiotic ointment and will follow up in 1-2 weeks or sooner if needed. STEPH/BRADY Voice ID: [id number] Report ID: [id number]
== END 2022-04-01 12:05 | disposition home or self-care (01) ==
LOC: OR 06:36
PROVIDERS: ATTEND Otolaryngology Facial Plastic Surgery
PROC: 09B0XZZ Excision of Right External Ear, External Approach (ICD-10-PCS; 2022-04-01)
PROC: 0JB40ZZ Excision of Right Neck Subcutaneous Tissue and Fascia, Open Approach (ICD-10-PCS; principal; 2022-04-01 08:00)
DX: C49.0 Malignant neoplasm of connective and soft tissue of head, face and neck (principal); C44.222 Squamous cell carcinoma of skin of right ear and external auricular canal; C44.41 Basal cell carcinoma of skin of scalp and neck; C76.0 Malignant neoplasm of head, face and neck; E11.9 Type 2 diabetes mellitus without complications; Z85.3 Personal history of malignant neoplasm of breast; Z85.07 Personal history of malignant neoplasm of pancreas
CPT/HCPCS: 82947 ×2; 88331; 88332; 88305; 69110; 11624; J2704; J2001; J3010; J1100; J7030; J0690